=== PATIENT | female | born 1970 | race Caucasian/White ===

== ENCOUNTER 2025-03-01 09:37 | Outpatient (CLI) | payer BC, SELFPAY ==
--- OUTSIDE RECORDS SUMMARY | 2023-10-08 11:45 | XMS_ITS ---
Author Organization [facility] Address [address] [place] [address] Care Team Providers Care Translation Director Name Role Phone Selina Jolley Unavailable [phone] Zulema Garnicafer Unavailable [phone] REASON FOR VISIT Annual Social History Sex Assigned At : Social History Observation Description Sex Assigned At Female Encounters Encounter Location Date Provider Diagnosis [facility] [address] [place] [address] 10/08/2023 Adry Garnica Plan Of Treatment Next Appt Details Provider Name:Adry Garnica , 08/03/2025 08:15:00 AM, [address], [place], [address], Progress Notes * Monae PEREIRA CDOB:1970 (54 yo F)Acc No.[id number]:10/08/2023 Progress Note Patient: Benson marcocassandra Monae Knowles Provider: Triston Garnica MD :1970 A ge:52 Y S ex:Female Date:10/08/2023 Address:[address] [place], [place] [id number] Subjective: * Chief Complaints: * A nnual * Electronic signature of Maria Eugenia Garnica MD on 03/01/2025 at 09:40 AM EDT Sign off status: Pending Visit Status: R /S (Rescheduled) * Provider: Triston Garnica MD Date: 0 10/08/2023 Generated for Elmira morales/Kori/Kimberly on: 0 03/01/2025 09:40 AM EDT
--- OUTSIDE RECORDS SUMMARY | 2024-07-14 04:15 | XMS_ITS ---
Author Organization [facility] Address [address] [place] [address] Care Team Providers Care Urology Physician Assistant Name Role Phone Selina Jolley Unavailable [phone] Zulema Garnicafer Unavailable [phone] REASON FOR VISIT Annual Social History Sex Assigned At : Social History Observation Description Sex Assigned At Female Encounters Encounter Location Date Provider Diagnosis [facility] [address] [place] [address] 07/14/2024 Adry Garnica Plan Of Treatment Next Appt Details Provider Name:Adry Garnica , 08/03/2025 08:15:00 AM, [address], [place], [address], Progress Notes * Monae PEREIRA CDOB:1970 (54 yo F)Acc No.[id number]:07/14/2024 Progress Note Patient: Benson marcocassandra Monae Knowles Provider: Triston Garnica MD :1970 A ge:53 Y S ex:Female Date:07/14/2024 Address:[address] [place], [place] [phone] Subjective: * Chief Complaints: * A nnual * Electronic signature of Maria Eugenia Garnica MD on 03/01/2025 at 09:41 AM EDT Sign off status: Pending Visit Status: R /S (Rescheduled) * Provider: Triston Garnica MD Date: 1 Generated for Elmira morales/Kori/Kimberly on: 0 03/01/2025 09:41 AM EDT
--- OUTSIDE RECORDS SUMMARY | 2024-12-31 08:49 | XMS_ITS | Encounter Summary ---
Author Organization [facility] Address [address] [place] [address] Care Team Providers Care Fine Craft Artist Name Role Phone Julianna Freed PA-C Primary Care Provide r Reason for Referral * Diagnostic Imaging (Routine) - Closed Specialty Diagnoses / Procedures Referred By Contac t Referred To Contact Radiology Diagnoses RUQ pain Procedures US Gallbladder Brie Muñoz PA-C [address] [place] [address] Phone: tel: fax: [facility] [address] [place] [address] Phone: tel: Referral ID Status Reason Start Date Expiration Date Visits Re quested Visits Authorized [id number] Closed 12/10/2024 03/11/2026 1 1 Reason for Visit * Auth/Cert (Routine) Specialty Diagnoses / Procedures Referred By Contac t Referred To Contact Referral ID Status Reason Start Date Expiration Date Visits Re quested Visits Authorized [id number] 1 1 Encounter Details Date Type Department Care Team (Late st Contact Info) Description 12/31/2024 8:49 AM EDT - 12/31/2024 11:59 PM EDT Hospital Encounter [facility] [place] [address] [place] [phone] Brie Muñoz PA-C [address] [place] [address] RUQ pain Discharge Disposition: Home or Self Care Social History Tobacco Use Types Packs/Day Years Used Date Smoking Tobacco: Never Passive Smoke Exposure: Never Smokeless Tobacco: Never Alcohol Use Standard Drinks/Week Comments Yes 1 (1 standard drink = 0.6 oz pure alcohol) On average I have less than 1 drink/week PHQ-2 Answer Date Recorded Retired PHQ-9: Brief Depression Severity Measure Score 0 01/25/2023 PHQ-2 Answer Date Recorded Patient Health Questionnaire-2 Score 0 08/10/2024 Comments No Sex and Gender Information Value Date Recorded Sex Assigned at Female 12/10/2024 10:23 AM EDT Legal Sex Female 11:40 AM EDT Gender Identity Not on file Sexual Orientation Not on file Travel History Travel Start Travel End [place] 02/03/2025 02/07/2025 documented as of this encounter Medications at Time of Discharge desonide (DESOWEN) 0.05 % ointment Apply to the axilla BID x2 weeks, then take two week break 5 fexofenadine (JUSTO) 180 MG tabletIndications:S easonal allergies Take 1 tablet by mouth Daily. 90 tablet 3 Humira, 2 Pen, 40 MG/0.4ML Auto-injector Kit Inject 0.4 mL every week by subcutaneous route. 4 hydrOXYzine (ATARAX) 25 MG tabletIndications:A nxiety Take 1 tablet by mouth 3 (Three) Times a Day As Needed for Anxiety. 30 tablet 2 3 ketoconazole (NIZORAL) 2 % shampoo Apply topically to the appropriate area as directed 2 (Two) Times a Week. 120 mL 11 2 lidocaine (XYLOCAINE) 5 % ointment APPLY TOPICALLY TO BACK 2 TO 3 TIMES A DAY NEEDED FOR PAIN methocarbamol (ROBAXIN) 500 MG tabletIndications:P ain of left hip TAKE 2 TABLETS BY MOUTH AT NIGHT 180 tablet 5 nabumetone (RELAFEN) 750 MG tablet 1 tablet Daily. 9 ondansetron (Zofran) 4 MG tabletIndications:R UQ pain,Nausea Take 1 tablet by mouth Every 8 (Eight) Hours As Needed for Nausea or Vomiting. 30 tablet 1 5 Probiotic Product (PROBIOTIC-10 ULTIMATE PO) simethicone (MYLICON) 80 MG chewable tabletIndications:R UQ pain,Bloating Chew 1 tablet Every 6 (Six) Hours As Needed for Flatulence. 90 tablet 1 5 tretinoin (RETIN-A) 0.025 % cream APPLY A PEA SIZED AMOUNT TO THE AFFECTED AREA(S) BY TOPICAL ROUTE ONCE DAILY AT BEDTIME 5 amLODIPine (NORVASC) 5 MG tabletIndications:E ssential hypertension TAKE 1 TABLET BY MOUTH EVERY DAY 90 tablet 3 4 02/08/20 25 FLUoxetine (PROzac) 20 MG capsuleIndications: Anxiety Take 1 capsule by mouth Daily. 90 capsule 3 4 02/11/20 25 losartan (COZAAR) 50 MG tabletIndications:E ssential hypertension Take 1 tablet by mouth Daily. 90 tablet 3 4 02/08/20 25 montelukast (SINGULAIR) 10 MG tabletIndications:S easonal allergies TAKE 1 TABLET BY MOUTH AT BEDTIME 90 tablet 3 4 02/08/20 25 rosuvastatin (CRESTOR) 10 MG tabletIndications:M ixed hyperlipidemia TAKE 1 TABLET BY MOUTH EVERY DAY 90 tablet 3 4 02/08/20 25 Wegovy 2.4 MG/0.75ML solution auto-injectorIndica tions:Obesity (BMI 30.0-34.9) INJECT 2.4 MG UNDER THE SKIN ONCE EVERY 7 DAYS DIRECTED 9 mL 5 01/30/20 25 documented as of this encounter Plan of Treatment Upcoming Encounters Date Type Department Care Team (Late st Contact Info) Description 03/03/2025 8:00 AM EDT Treatment [facility] [address] [facility] [address] [place] [address] Sagar Soto, PT [address] [facility] [address] [place], [place] [id number] 03/10/2025 4:00 PM EDT Treatment [facility] [address] [facility] [address] [place] [address] Sagar Soto, PT [address] [facility] [address] [place], [place] [id number] 03/29/2025 3:00 PM EDT Office Visit [facility] [address] [place] [address] Julianna Freed PA-C [address] [place], [place] [id number] 03/31/2025 1:00 PM EDT Appointment [facility]UCLEAR [facility]ICINE [address] [place] [address] 04/05/2025 1:00 PM EDT Outside Facility Service [facility] [address] [facility] [address] [place] [address] Daljit Wilson MD [address] [facility] [address] [place] [address] documented as of this encounter Procedures Procedure Name Priority Date/Time Associated Diagnosis Comments US GALLBLADDER Routine 12/31/2024 9:16 AM EDT RUQ pain documented in this encounter Results * US Gallbladder (12/31/2024 9:16 AM EDT) Anatomical Region Laterality Modality Body, Abdomen Ultrasound 01/03/2025 10:2 4 PM EDT Impressions 01/03/2025 10:30 PM EDT Impression: 1.Hepatic steatosis. 2.The remaining study is normal. Electronically Signed: Thomas Stanley MD 01/03/2025 10:30 PM EDT Workstation ID: [id number] Narrative 01/03/2025 10:30 PM EDT US GALLBLADDER Date of Exam: 12/31/2024 8:50 AM EDT Indication: Worsening of right upper quadrant abdominal pain. Comparison: Limited abdominal ultrasound performed on 07/24/[address] of the abdomen performed on 07/28/2018. Technique: Grayscale and color Doppler ultrasound evaluation of the gallbladder was performed. Findings: The pancreatic head and body are normal. The pancreatic tail was obscured by bowel gas. There is increased hepatic echogenicity felt to represent hepatic steatosis. There are no focal hepatic masses. There is normal directional flow in the main portal vein and hepatic veins. The gallbladder is within range of normal. The common bile duct caliber is normal measuring 0.2 cm. The right kidney is unremarkable measuring 9.1 x 4.2 x 4.9 cm. Procedure Note Thomas Stanley MD - 01/03/2025 US GALLBLADDER Date of Exam: 12/31/2024 8:50 AM EDT Indication: Worsening of right upper quadrant abdominal pain. Comparison: Limited abdominal ultrasound performed on 07/24/[address] ofthe abdomen performed on 07/28/2018. Technique: Grayscale and color Doppler ultrasound evaluation of thegallbladder was performed. Findings: The pancreatic head and body are normal. The pancreatic tail was obscuredby bowel gas. There is increased hepatic echogenicity felt to representhepatic steatosis. There are no focal hepatic masses. There is normaldirectional flow in the main portal vein and hepatic veins. The gallbladder is within range of normal. Thecommon bile duct caliber is normal measuring 0.2 cm. The right kidney isunremarkable measuring 9.1 x 4.2 x 4.9 cm. IMPRESSION: Impression: 1.Hepatic steatosis. 2.The remaining study is normal. Electronically Signed: Thomas Stanley MD 01/03/2025 10:30 PM EDT Workstation ID: [id number] us Brie Muñoz PA-C IMMichelle US ORDERABLES Final Res ult documented in this encounter Visit Diagnoses Diagnosis RUQ pain Abdominal pain, right upper quadrant documented in this encounter Care Teams Fine Craft Artist Relationship Specialty Start Date End Date Julianna Freed PA-C [address] [place] [address] PCP - General Physician Manufacturing Tech 07/17/18 documented as of this encounter
--- OUTSIDE RECORDS SUMMARY | 2025-01-04 08:00 | XMS_ITS | Encounter Summary ---
Author Organization [facility] Address [address] [place] [address] Care Team Providers Care Mica Paster Name Role Phone Julianna Freed PA-C Primary Care Provide r Reason for Visit * Reason Comments Follow-up Treatment * Physical Therapy (Routine) - Authorized Specialty Diagnoses / Procedures Referred By Mukesh collins Referred To Contact Physical Therapy Diagnoses Cervical radiculopathy 2024 BENEFITS ANTHEM COINS:20% NO AUTH REQ 90VL/YR (COMBINED) REM DED:$1,500 REM OOP:$3,000 Cervical radiculopathy Procedures ORTHO TREATMENT Julianna Freed PA-C [address] [place] [address] Phone: tel: fax: [facility] [address] [place] [address] [address] [place] [address] Phone: tel: fax: Referral ID Status Reason Start Date Expiration Date V isits Requested Visits Authorized [id number] Authorized 07/24/2024 07/24/2025 90 90 Encounter Details Date Type Department Care Team (Late st Contact Info) Description 01/04/2025 8:00 AM EDT Treatment [facility] [address] [place] [address] [address] [place] [address] Sagar Soto, PT [address] [facility] [address] [place] [address] Pain, neck (Primary Dx); Radiculopathy, cervical Social History Tobacco Use Types Packs/Day Years [...] file Travel History Travel Start Travel End [place] 02/03/2025 02/07/2025 documented as of this encounter Progress Notes * Sagar Soto, PT - 01/04/2025 8:00 AM EDT Physical Therapy Daily Treatment Note [facility] [address] [facility], [address] [place] [address] Patient: Monae Pereira : 1970 Referring practitioner: Julianna Freed, * Date of Initial Visit: Type: THERAPY Noted: 11/29/2022 Today's Date: 01/04/2025 Patient seen for 61 sessions Certification Period 01/04/2025 thru 04/04/2025 Visit Diagnoses: ICD-10-CM ICD-9-CM 1. Pain, neck M54.2 723.1 2. Radiculopathy, cervical M54.12 723.4 Subjective Pt states that she is feeling some tightness on the right side of the neck today, but overall she still feels that she is improved and she denies any pain radiating into the right UE. Objective See Exercise, Manual, and Modality Logs for complete treatment. Assessment/Plan Hypertonicity noted in the right cervical paraspinals, LS, and scalenes. Pt responded well to manual intervention and she demonstrated an improvement in her pain free cervical AROM in all planes. Will cont to progress as indicated. Monae Pereira will continue to benefit from skilled physical therapy services to address deficits and continue to work towards reaching functional goals. Timed: Manual Therapy: 28 mins 50450; Therapeutic Exercise: 10 mins 99924; Neuromuscular Janessa: mins 74350; Therapeutic Activity: mins 08791; Gait Training: mins 68012; Ultrasound: mins 49606; Ionto mins 29791 Self Care mins 28154 Canalith Repos mins 95212 Electrical Stimulation: mins 62724 Un-Timed: Electrical Stimulation: mins 74717 ( [id number]); Dry Needling mins self-pay Traction mins 79515 Timed Treatment: 38 mins Total Treatment: 38 mins Sagar Soto PT, DPT, Cert. DN [place] License: [id number] documented in this encounter Plan of Treatment Upcoming Encounters Date Type Department Care Team (Late st Contact Info) Description 03/03/2025 8:00 AM EDT Treatment [facility] [address] [place] [address] [address] [place] [address] Sagar Soto, PT [address] [facility] [address] [place] [address] 03/10/2025 4:00 PM EDT Treatment [facility] [address] [place] [address] [address] [place] [address] Sagar Soto, PT [address] [facility] [address] [place] [address] 03/29/2025 3:00 PM EDT Office Visit [facility] [address] [place] [address] Julianna Freed PA-C [address] [place] [address] 03/31/2025 1:00 PM EDT Appointment [facility] [address] [place] [address] 04/05/2025 1:00 PM EDT Outside Facility Service [facility] [address] [address] Daljit Wilson MD [address] [address] documented as of this encounter Visit Diagnoses Diagnosis Pain, neck- Primary Radiculopathy, cervical Brachial neuritis or radiculitis nos documented in this encounter Care Teams Mica Paster Relationship Specialty Start Date End Date Julianna Freed PA-C [address] [place] [address] PCP - General Physician Health Occupations Teacher 07/17/18 documented as of this encounter
--- OUTSIDE RECORDS SUMMARY | 2025-01-12 16:00 | XMS_ITS | Encounter Summary ---
Author Organization [facility] Address [address] [place] [address] Care Team Providers Care Television Picture Tube Rebuilder Name Role Phone Julianna Freed PA-C Primary Care Provide r Reason for Visit * Reason Comments Treatment * Physical Therapy (Routine) - Authorized Specialty Diagnoses / Procedures Referred By Mukesh collins Referred To Contact Physical Therapy Diagnoses Cervical radiculopathy 2024 BENEFITS ANTHEM COINS:20% NO AUTH REQ 90VL/YR (COMBINED) REM DED:$1,500 REM OOP:$3,000 Cervical radiculopathy Procedures ORTHO TREATMENT Julianna Freed PA-C [address] [place] [address] Phone: tel: fax: [facility] [address] [place] [address] [address] [place] [address] Phone: tel: fax: Referral ID Status Reason Start Date Expiration Date V isits Requested Visits Authorized [id number] Authorized 07/24/2024 07/24/2025 90 90 Encounter Details Date Type Department Care Team (Late st Contact Info) Description 01/12/2025 4:00 PM EDT Treatment [facility] [address] [place] [address] [address] [place] [address] Sagar Soto, PT [address] [facility] [address] [place] [address] Pain, neck (Primary Dx); Radiculopathy, cervical Social [...] file Travel History Travel Start Travel End [place] 02/03/2025 02/07/2025 documented as of this encounter Progress Notes * Sagar Soto, PT - 01/12/2025 4:00 PM EDT Physical Therapy Daily Treatment Note [facility] [address], [address] [place] [address] Patient: Monae Pereira : 1970 Referring practitioner: Julianna Freed, * Date of Initial Visit: Type: THERAPY Noted: 11/29/2022 Today's Date: 01/12/2025 Patient seen for 62 sessions Certification Period 01/12/2025 thru 04/13/2025 Visit Diagnoses: ICD-10-CM ICD-9-CM 1. Pain, neck M54.2 723.1 2. Radiculopathy, cervical M54.12 723.4 Subjective Patient states that she feels like she has had some increase in tension in the right side of the neck recently but overall she still continues to feel much better with therapy. Patient denies having any radicular symptoms into the right upper extremity. Objective See Exercise, Manual, and Modality Logs for complete treatment. Assessment/Plan Decreased hypertonicity noted with manual therapy today and patient was able to perform light exercise without any exacerbation of symptoms. Continue to progress as indicated. Adrielle C Camuel will continue to benefit from skilled physical therapy services to address deficits and continue to work towards reaching functional goals. Timed: Manual Therapy: 28 mins 94800; Therapeutic Exercise: mins 90464; Neuromuscular Janessa: mins 43520; Therapeutic Activity: mins 75598; Gait Training: mins 91983; Ultrasound: mins 64789; Ionto mins 58361 Self Care mins 24817 Canalith Repos mins 11731 Electrical Stimulation: mins 23373 Un-Timed: Electrical Stimulation: mins 73101 (MC [id number]); Dry Needling mins self-pay Traction mins 45191 Timed Treatment: 28 mins Total Treatment: 28 mins Sagar Soto PT, DPT, Cert. DN [place] License: [id number] documented in this encounter Plan of Treatment Upcoming Encounters Date Type Department Care Team (Late st Contact Info) Description 03/03/2025 8:00 AM EDT Treatment [facility] [address] [place] [address] [address] [place] [address] Sagar Soto, PT [address] [facility] [address] [place] [address] 03/10/2025 4:00 PM EDT Treatment [facility] [address] [place] [address] [address] [place] [address] Sagar Soto, PT [address] [facility] [address] [place] [address] 03/29/2025 3:00 PM EDT Office Visit [facility] [address] [place] [address] Julianna Freed PA-C [address] [place] [address] 03/31/2025 1:00 PM EDT Appointment [facility] [address] [place] [address] 04/05/2025 1:00 PM EDT Outside Facility Service [facility] [address] [facility] [address] Daljit Wilson MD [address] [place] [id number] documented as of this encounter Visit Diagnoses Diagnosis Pain, neck- Primary Radiculopathy, cervical Brachial neuritis or radiculitis nos documented in this encounter Care Teams Television Picture Tube Rebuilder Relationship Specialty Start Date End Date Julianna rFeed PA-C [address] [facility] [place] [place] [address] PCP - General Physician Drop Wirer 07/17/18 documented as of this encounter
--- OUTSIDE RECORDS SUMMARY | 2025-01-19 16:00 | XMS_ITS | Encounter Summary ---
[facility] Address [address] [place] [address] Care Team Providers Care Tack Coverer Name Role Phone Julianna Freed PA-C Primary Care Provide r Reason for Visit * Reason Comments Treatment * Physical Therapy (Routine) - Authorized Specialty Diagnoses / Procedures Referred By Mukesh collins Referred To Contact Physical Therapy Diagnoses Cervical radiculopathy 2024 BENEFITS ANTHEM COINS:20% NO AUTH REQ 90VL/YR (COMBINED) REM DED:$1,500 REM OOP:$3,000 Cervical radiculopathy Procedures ORTHO TREATMENT Julianna Freed PA-C [address] [place] [address] Phone: tel: fax: [facility] [address] [place] [address] [address] [place] [address] Phone: tel: fax: Referral ID Status Reason Start Date Expiration Date V isits Requested Visits Authorized [id number] Authorized 07/24/2024 07/24/2025 90 90 Encounter Details Date Type Department Care Team (Late st Contact Info) Description 01/19/2025 4:00 PM EDT Treatment [facility] [address] [place] [address] [address] [place] [phone] Sagar Soto, PT [address] [facility] [address] [place] [address] Pain, neck (Primary Dx); Radiculopathy, cervical Social [...] file Travel History Travel Start Travel End [place] 02/03/2025 02/07/2025 documented as of this encounter Progress Notes * Sagar Soto, PT - 01/19/2025 4:00 PM EDT Physical Therapy Daily Treatment Note Lance PT [address] [place], [address] [place] [address] Patient: Monae Pereira : 1970 Referring practitioner: Julianna Freed, * Date of Initial Visit: Type: THERAPY Noted: 11/29/2022 Today's Date: 01/19/2025 Patient seen for 63 sessions Certification Period 01/19/2025 thru 04/19/2025 Visit Diagnoses: ICD-10-CM ICD-9-CM 1. Pain, neck M54.2 723.1 2. Radiculopathy, cervical M54.12 723.4 Subjective Patient states that she is feeling more stiffness and discomfort in the neck and towards the right shoulder blade today. She is unsure what may have caused patient's symptoms but feels that she stillis significantly improved overall Objective See Exercise, Manual, and Modality Logs for complete treatment. Assessment/Plan Patient responded well to manual intervention in the clinic today and she demonstrated decrease in hypertonicity and the right cervical and thoracic paraspinal muscles. Patient demonstrated improvement in her cervical active range of motion post manual therapy as well. Will continue to progress as i ndicated. Monae Pereira will continue to benefit from skilled physical therapy services to address deficits and continue to work towards reaching functional goals. Timed: Manual Therapy: 32 mins 96472; Therapeutic Exercise: mins 99305; Neuromuscular Janessa: mins 23335; Therapeutic Activity: mins 57384; Gait Training: mins 65056; Ultrasound: mins 14844; Ionto mins 15927 Self Care mins 92552 Canalith Repos mins 46628 Electrical Stimulation: mins 09790 Un-Timed: Electrical Stimulation: mins 42093 ( [id number]); Dry Needling mins self-pay Traction mins 67466 Timed Treatment: 32 mins Total Treatment: 32 mins Sagar Soto PT, DPT, Cert. DN [place] License: [id number] documented in this encounter Plan of Treatment Upcoming Encounters Date Type Department Care Team (Late st Contact Info) Description 03/03/2025 8:00 AM EDT Treatment [facility] [address] [place] [address] [address] [place] [address] Sagar Soto, PT [address] [facility] [address] [place] [address] 03/10/2025 4:00 PM EDT Treatment [facility] [address] [place] [address] [address] [place] [address] Sagar Soto, PT [address] [facility] [address] [place] [address] 03/29/2025 3:00 PM EDT Office Visit [facility] [address] [place] [phone] Julianna Freed PA-C [address] [place] [address] 03/31/2025 1:00 PM EDT Appointment [facility] [address] [place] [address] 04/05/2025 1:00 PM EDT Outside Facility Service [facility] [address] [phone] Daljit Wilson MD [address] [address] documented as of this encounter Visit Diagnoses Diagnosis Pain, neck- Primary Radiculopathy, cervical Brachial neuritis or radiculitis nos documented in this encounter Care Teams Tack Coverer Relationship Specialty Start Date End Date Julianna Freed PA-C [address] [place] [address] PCP - General Physician Inspector Government Property 07/17/18 documented as of this encounter
--- OUTSIDE RECORDS SUMMARY | 2025-01-26 08:00 | XMS_ITS | Encounter Summary ---
[facility] Address [address] [place] [address] Care Team Providers Care Family Resource Management Professor Name Role Phone Julianna Freed PA-C Primary Care Provide r Reason for Visit * Reason Comments Treatment * Physical Therapy (Routine) - Authorized Specialty Diagnoses / Procedures Referred By Mukesh collins Referred To Contact Physical Therapy Diagnoses Cervical radiculopathy 2024 BENEFITS ANTHEM COINS:20% NO AUTH REQ 90VL/YR (COMBINED) REM DED:$1,500 REM OOP:$3,000 Cervical radiculopathy Procedures ORTHO TREATMENT Julianna Freed PA-C [address] [place] [address] Phone: tel: fax: [facility] [address] [place] [address] [address] [place] [address] Phone: tel: fax: Referral ID Status Reason Start Date Expiration Date V isits Requested Visits Authorized [id number] Authorized 07/24/2024 07/24/2025 90 90 Encounter Details Date Type Department Care Team (Late st Contact Info) Description 01/26/2025 8:00 AM EDT Treatment [facility] [address] [place] [address] [address] [place] [phone] Sagra Soto, PT [address] [facility] [address] [place] [address] Pain, neck (Primary Dx); Radiculopathy, cervical Social [...] file Travel History Travel Start Travel End [place] 02/03/2025 02/07/2025 documented as of this encounter Progress Notes * Sagar Soto, PT - 01/26/2025 8:00 AM EDT Physical Therapy Daily Treatment Note Lance PT [address], [address] [place] [address] Patient: Monae Pereira : 1970 Referring practitioner: Julianna Freed, * Date of Initial Visit: Type: THERAPY Noted: 11/29/2022 Today's Date: 01/26/2025 Patient seen for 64 sessions Certification Period 01/26/2025 thru 04/27/2025 Visit Diagnoses: ICD-10-CM ICD-9-CM 1. Pain, neck M54.2 723.1 2. Radiculopathy, cervical M54.12 723.4 Subjective Patient states that she has had some increase and soreness on the right side of the neck and she has noticed mild symptoms at the top of the right shoulder recently. She feels like she may be due fora another cervical rhizotomy. Objective See Exercise, Manual, and Modality Logs for complete treatment. Assessment/Plan Patient continues to respond very well to manual intervention and she had decreased tone and improved overall cervical mobility post manual therapy. Will continue to progress as indicated. Adrielle C Camuel will continue to benefit from skilled physical therapy services to address deficits and continue to work towards reaching functional goals. Timed: Manual Therapy: 38 mins 37795; Therapeutic Exercise: mins 80363; Neuromuscular Janessa: mins 21949; Therapeutic Activity: mins 48437; Gait Training: mins 77540; Ultrasound: mins 97612; Ionto mins 59669 Self Care mins 30882 Canalith Repos mins 79845 Electrical Stimulation: mins 25722 Un-Timed: Electrical Stimulation: mins 54400 (MC [id number]); Dry Needling mins self-pay Traction mins 68798 Timed Treatment: 38 mins Total Treatment: 38 mins Sagar Soto PT, DPT, Cert. DN [place] License: [id number] documented in this encounter Plan of Treatment Upcoming Encounters Date Type Department Care Team (Late st Contact Info) Description 03/03/2025 8:00 AM EDT Treatment [facility] [address] [place] [address] [address] [place] [address] Sagar Soto, PT [address] [facility] [address] [place] [address] 03/10/2025 4:00 PM EDT Treatment [facility] [address] [place] [address] [address] [place] [address] Sagar Soto, PT [address] [facility] [address] [place] [address] 03/29/2025 3:00 PM EDT Office Visit [facility] [address] [place] [phone] Julianna Freed PA-C [address] [place] [address] 03/31/2025 1:00 PM EDT Appointment [facility] [address] [place] [address] 04/05/2025 1:00 PM EDT Outside Facility Service [facility] [address] [facility] [phone] Daljit Wilson MD [address] [place] [id number] documented as of this encounter Visit Diagnoses Diagnosis Pain, neck- Primary Radiculopathy, cervical Brachial neuritis or radiculitis nos documented in this encounter Care Teams Family Resource Management Professor Relationship Specialty Start Date End Date Julianna Freed PA-C [address] [facility] [place] [address] PCP - General Physician Casing Puller 07/17/18 documented as of this encounter
--- OUTSIDE RECORDS SUMMARY | 2025-01-28 08:20 | XMS_ITS | Encounter Summary ---
Author Organization [facility] Address [address] [place] [address] Care Team Providers Care Sales Training Coordinator Name Role Phone Julianna Freed Primary Care Provider Reason for Referral * Other Medical (Routine) - Closed Specialty Diagnoses / Procedures Referred By Contac t Referred To Contact Pain Medicine Diagnoses Spondylosis of cervical 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 radiculopathy Procedures RFA - Cervical / Thoracic RFA - Cervical / Thoracic Ermias Taylor MD [address] [address] Phone: tel: fax: [facility] Interventional Pain Medicine [address] [place] [address] Phone: tel: fax: Referral ID Status Reason Start Date Expiration Date Visits Re quested Visits Authorized [id number] Closed 01/28/2025 07/30/2026 1 1 Reason for Visit * Reason Comments Follow-up Discuss RF Encounter Details Date Type Department Care Team (Late Contact Info) Description 01/28/2025 8:20 AM EDT Office Visit [facility] Interventional Pain Medicine [address] [place] [address] Ermias Taylor MD [facility] [address] [address] Spondylosis of cervical 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 radiculopathy (Primary Dx) Social History Tobacco Use Types Packs/Day Years Used Date Smoking Tobacco: Never Smokeless Tobacco: Never Alcohol Use Standard Drinks/Week Comments Yes 0 (1 standard drink = 0.6 oz pur e alcohol) social PHQ-2 Answer Date Recorded Patient Health Questionnaire-2 Score 0 12/17/2024 PHQ-9 Answer Date Recorded Patient Health Questionnaire-9 Score 0 09/29/2024 PHQ-2A Answer Date Recorded Depression Risk 0 06/29/2023 Comments No Sex and Gender Information Value Date Recorded Sex Assigned at Female 05/21/2021 5:57 PM EST Legal Sex Female 7:57 PM EDT Gender Identity Female 05/21/2021 5:57 PM EST Sexual Orientation Not on file documented as of this encounter Last Filed Vital Signs Vital Sign Reading Time Taken Comments Blood Pressure 126/84 01/28/2025 8:30 AM EDT Pulse 96 01/28/2025 8:30 AM EDT Temperature 36.2 C (97.1 F) 01/28/2025 8:30 AM EDT Respiratory Rate 16 01/28/2025 8:30 AM EDT Oxygen Saturation - - Inhaled Oxygen Concentration - - Weight 80.3 kg (177 lb) 01/28/2025 8:30 AM EDT Height 152.4 cm (5') 01/28/2025 8:30 AM EDT Body Mass Index 34.57 01/28/2025 8:30 AM EDT documented in this encounter Miscellaneous Notes * Progress Notes - Denzel Bravo, - 01/28/2025 8:20 AM EDT Images from the original note were not included. Interventional Pain Medicine Record review: PMR, internal medicine Interval Tx: s/p 06/22/24 Bilateral C4, C5, and C6 Cervical medial branch radiofrequency ablation with 80% reliefx7 months. Pain has returned. Would like to repeat RFA. History of Present Illness: Monae Pereira is a 54 y.o. female with chronic neck pain Patient reports that she has had neck pain for several years and required a C5-C6 fusion (07/2011) in the past. LUE pain was primary complaint before C5-6 which improved since fusion. Today, patient C/o left buttock pain extending to the left posterior thigh, and stopping at calf, started 6 months ago, non interventional helping, had massage and acupuncture yesterday, pain 07/24, no saddle anesthesia, no bowel or bladder dysfunction.. no new muscle weakness, does not want any interventional tx at this time GPS: 7.5 Current Medication: Relafen Methocarbamol Humira Past pain medications Flexeril Gabapentin- lethargy Tizandine Previous Non-Interventional Treatments: acupuncture heat ice medication trials modified activities physical therapy > 6 weeks rest Currently enrolled in PT weekly acupuncture OMT HEP Previous Interventions/Consults: Bilateral C4, C5, and C6 Cervical medial branch radiofrequency ablation 06/22/24 Bilateral C4, C5, and C6 Cervical medial branch radiofrequency ablation 10/01/23 MITRA C7/T1: 04/02/23 MITRA C7/T1: 12/21/22 MITRA C7/T1: 09/04/22 MITRA C7/T1: /06/21/22 previous cervical fusion at the level of C5-C6 in [address] Bell - for LLE pain Other Medical History reports that she has never smoked. She has never used smokeless tobacco. Diabetes: Denies A1C: N/A Anticoagulation: Denies Review of Systems: CONSTITUTIONAL: denies fevers, chills HEENT: denies swallowing difficulties, sore throat CARDIOVASCULAR: denies chest pain, palpitations with anxiety, denies syncope RESPIRATORY: denies shortness of breath, cough, wheezing GI: denies change in bowel habits : denies change in bladder function SKIN: denies rash, skin changes MSK: Per HPI NEURO: Per HPI PSYCH: mild anxiety and stress managed due to current events Physical Constitutional Oriented to person, place, and time. Appears well-developed and well-nourished Head Normocephalic and atraumatic. Neck Neck trachea midline Cardiovascular No peripheral edema Pulmonary/Chest Effort normal, no shortness of breath noted Neurological Alert and oriented to person, place, and time Skin Skin is warm and no visible rash on exposed skin Psychiatric Normal mood and affect, behavior and judgment Upper Extremity Region Exam Left (+/-) Right (+/-) Comments Cervical Musculature Tender w/ palpation + + Cervical Facet Pain w/ extension + + Upper Extremity Spurling's - - Upper Extremity Bakody - - Sensation Left Right Comments Neck Normal Normal C5: Shoulder Normal Normal C6: Thumb, radial aspect of hand/forearm (Radial Nerve) Normal Normal C7: Long finger (Median Nerve) Normal Normal C8: Little finger, ulnar aspect of hand/forearm (Ulnar n.) Normal Normal T1; Medial forearm/arm Normal Normal Motor Strength Left Right Comments C5: Shoulder abduction (Deltoid) 11/16 11/16 C5: Elbow flexion (Biceps, Brachialis) 11/16 11/16 C6: Wrist extension (ECRB, ECRL) 11/16 11/16 C7: Elbow extension (Triceps) 11/16 11/16 C8: Finger flexion (Hospice Superintendent strength) 11/16 11/16 T1: Finger abduction 11/16 11/16 Imaging: C-spine XR 08/2022 no acute findings No updated relevant imaging to review Assessment & Plan: Monae Pereira is a 54 y.o. female #Axial Neck Pain, chronic stable #Cervical Spondylosis #Facetogenic pain -s/p Bilateral C4, C5, and C6 Cervical medial branch radiofrequency ablation with 80% improvement with pain x7 months. She reports reemergence of her symptoms over the last 2-3 weeks and would like to pursue repeat RFA. Follow up 8 weeks after procedure. -Some new face pain symptoms, repeat RFA and see if it improved, if not might need C2/3,3 MBB #Cervical Radicular Syndrome -chronic stable -s/p MITRA as needed #myofascial pain -chronic stable -continue with PT and OMT #piriformis pain-left -chronic stable -continue with PT, acupuncture, massage, and OMT -if pain worsens, consider left piriformis injection, if no benefit, recommending L-spine MRI Cosigned by Ermias Taylor MD at 01/28/2025 2:37 PM EDT Associated attestation - Ermias Taylor MD - 01/28/2025 2:37 PM EDT I saw and evaluated the patient with the resident/fellow. I discussed the case with the resident/fellow and agree with the findings and plan as documented. documented in this encounter Plan of Treatment Upcoming Encounters Date Type Department Care Team (Late st Contact Info) Description 03/05/2025 2:45 PM EDT Office Visit [facility] [address] [facility] [place] [address] Janeen Vanegas [address] [facility] Jhoana Snell [facility] [address] [place] [address] 03/11/2025 1:00 PM EDT Procedure Visit [facility] [address] [facility] [place] [phone] Gladys Mccarthy DO [address] [place] [address] 03/12/2025 8:30 AM EDT Office Visit [facility] [address] [address] Janene Vanegas [address] [facility] Alis [facility] [address] [place] [address] 03/12/2025 10:30 AM EDT Office Visit [facility] [address] [address] Lucrecia Morales [address] [facility] Alis [address] R[address] [place] [address] 03/31/2025 10:00 AM EDT Office Visit [facility] [address] [place] [address] 04/02/2025 9:20 AM EDT Office Visit [facility] Interventional Pain Medicine [address] [place] [address] Ermias Taylor MD [address] [facility] Shawn [address] [place] [address] 04/08/2025 3:40 PM EDT Procedure Visit [facility] [address] [place] [address] Gladys Mccarthy, DO [address] [place] [address] 04/13/2025 3:50 PM EDT Office Visit [facility] [address] [place] [address] Carlton Gaines, DO [address] [place] [address] 05/06/2025 3:40 PM EDT Procedure Visit [facility] [address] [place] [address] Gladys Mccarthy, DO [address] [place] [address] 06/03/2025 3:40 PM EST Procedure Visit [facility] [address] [place] [address] Gladys Mccarthy, DO [address] [place] [address] 09/07/2025 7:30 AM EST [facility] [address] [place] [address] documented as of this encounter Results * AL DSTR NROLYTC AGNT PARVERTEB FCT SNGL CRVCL/THORA, AL DSTR NROLYTC AGNT PARVERTEB FCT ADDL CRVCL/THORA, AL DSTR NROLYTC AGNT PARVERTEB FCT ADDL CRVCL/THORA (02/22/2025 9:00 AM EDT) Narrative Ermias Taylor MD - 02/22/2025 9:00 AM EDT Ermias Taylor MD 02/22/2025 1:01 PM RFA - Cervical / Thoracic Performed by: Denzel Bravo DO Authorized by: Ermias Taylor MD [place] Protocol: Time out was called immediately prior to procedure to meet all ambulatory requirements per organizational policy: Yes Patient identity confirmed: Arm band, , name and procedure consent Consent obtained?: Yes Procedure consent matches procedure scheduled: Yes Procedure side and site confirmed: Yes Imaging studies available (when applicable): Yes Procedure: Moderate conscious sedation used?: yes Guidance used (if applicable): fluoro Location: RFA location: Cervical/thoracic paravertebral facet Number of levels: 2 Laterality: Bilateral us Ermias Taylor MD IN CLINIC/BEDSIDE ORDERABLES Final Result documented in this encounter Visit Diagnoses Diagnosis Spondylosis of cervical 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 radiculopathy- Primary Spondylosis of cervical 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 radiculopathy documented in this encounter Additional Health Concerns Assessment Noted Time PHQ-9 Depression Total Score: 0 09/30/19 25 3:29 PM EDT A fall risk assessment has been complete d for the patient 12/17/2024 3:28 PM EDT A Body Mass Index follow-up plan has been documented for the patient 01/28/2025 2:37 PM EDT documented as of this encounter Care Teams Sales Training Coordinator Relationship Specialty Start Date End Date Julianna Freed PA [address] [place] [phone] PCP - General 11/25/20 documented as of this encounter
--- OUTSIDE RECORDS SUMMARY | 2025-01-29 11:00 | XMS_ITS | Encounter Summary ---
Author Organization [facility] Address [address] [place] [address] Care Team Providers Care Voltmeter Operator Name Role Phone Julianna Freed PA-C Primary Care Provide r Reason for Referral * Consultation (Routine) - Pending Review Specialty Diagnoses / Procedures Referred By Mukesh collins Referred To Contact Gastroenterology Diagnoses RUQ pain Abdominal pain, RLQ Epigastric pain Diarrhea, unspecified type Procedures DE OFFICE/OUTPATIENT NEW MODERATE MDM 45 MINUTES Julianna Freed PA-C [address] [place] [address] Phone: tel: fax: [facility] [address] [facility] [address] [place] [address] Phone: tel: fax: Referral ID Status Reason Start Date Expiration Date Visits Requested Visits Authorized [id number] Pending Review Specialty Services Required 01/29/2025 04/30/2026 1 1 * MRI/CAT/PET Scan (Routine) - Closed Specialty Diagnoses / Procedures Referred By Mukesh t Referred To Contact Radiology Diagnoses RUQ pain Abdominal pain, RLQ Diarrhea, unspecified type Procedures CT Abdomen Pelvis With Contrast Julianna Freed PA-C [address] [place] [address] Phone: tel: fax: [facility] [address] [place] [address] Phone: tel: Referral ID Status Reason Start Date Expiration Date Visits Re quested Visits Authorized [id number] Closed 01/29/2025 04/30/2026 1 1 Reason for Visit * Reason Comments Abdominal Pain Encounter Details Date Type Department Care Team (Late st Contact Info) Description 01/29/2025 11:00 AM EDT Office Visit [facility] [address] [place] [address] Julianna Freed PA-C [address] [place] [address] RUQ pain (Primary Dx); Abdominal pain, RLQ; Epigastric pain; Diarrhea, unspecified type Social History Tobacco Use Types Packs/Day Years Used Date Smoking Tobacco: Never Passive Smoke Exposure: Never Smokeless Tobacco: Never Tobacco Cessation:Counseling Given: Not Answered Alcohol Use Standard Drinks/Week Comments Yes 1 [...] file Travel History Travel Start Travel End [place] 02/03/2025 02/07/2025 documented as of this encounter Last Filed Vital Signs Vital Sign Reading Time Taken Comments Blood Pressure 124/78 01/29/2025 10:59 AM EDT Pulse 85 01/29/2025 10:59 AM EDT Temperature - - Respiratory Rate - - Oxygen Saturation 95% 01/29/2025 10:59 AM EDT Inhaled Oxygen Concentration - - Weight 83.5 kg (184 lb) 01/29/2025 10:59 AM EDT Height 152.4 cm (5') 01/29/2025 10:59 AM EDT Body Mass Index 35.94 01/29/2025 10:59 AM EDT documented in this encounter Progress Notes * Julianna Freed PA-C - 01/29/2025 11:00 AM EDT Chief Complaint Patient presents with Abdominal Pain Monae Pereira is a 54 y.o. female who presents for Abdominal Pain. Patient reports ongoing right upper quadrant pain for the last several months. Pain is worse with bending over and after eating.She is avoiding eating at times for fear of pain. Pain is burning and stabbing. Had normal ultrasound gallbladder. History of similar symptoms in [address] abdo/pelvis, US gallbladder and HIDA scan. History of EGD without any concerning findings. Seen by GI in 2019 and started on Align. Still taking Align. Recently on GLP-1. She discontinued this about a month ago and has not had any improvement. Reports stool is soft with mucous. No fever, chills, vomiting. No pain waking her at night. Past Medical History: Diagnosis Date Anemia Cervical disc disorder June 2011 Had cervical disc replacement and fusion Aug 08, 2011 Chronic pain disorder 2001 Was diagnosed with psoriatic arthritis in 2003 or 2004. 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 Hypertension Injury of neck 06/24/2011 Ruptred disc in my neck Joint pain 1980s Lumbar spine pain Lumbosacral disc disease October 2021 Medication monitoring encounter Neck pain June 2011 Obesity Psoriasis Psoriatic arthritis Psoriatic arthritis Right foot pain Shingles September 2011 Month is approximate Shoulder pain Spinal stenosis 2011 Year is approximate Urinary tract infection Past Surgical History: Procedure Laterality Date CERVICAL DISC ARTHROPLASTY 08/08/2011 Dr Joshua Capps CERVICAL FUSION 08/08/2011 Dr Joshua Capps COLONOSCOPY January 2023 DILATION AND CURETTAGE, DIAGNOSTIC / THERAPEUTIC EYE SURGERY 1998 [facility] FOOT SURGERY Right 06/14/2016 great toe ORTHOPEDIC SURGERY June 14, 2016 Bunionectomy and fusion, great toe, right foot REDUCTION MAMMAPLASTY Bilateral 2007 [facility] SPINAL FUSION August 08, 2011 Cervical disc replacement and fusion SPINE SURGERY Cervical disc replacement ans fusion STEROID INJECTION Family History Problem Relation Age of Onset Hypertension Mother Osteoarthritis Mother Osteoarthritis Sister Cancer Maternal Grandmother Hypertension Maternal Grandmother Osteoarthritis Maternal Grandmother Cancer Maternal Grandfather Hypertension Maternal Grandfather Mental illness Father Bipolar disorder and dementia Social History Socioeconomic History Marital status: Tobacco Use Smoking status: Never Passive exposure: Never Smokeless tobacco: Never Vaping Use Vaping status: Never Used Substance and Sexual Activity Alcohol use: Yes Alcohol/week: 1.0 standard drink of alcohol Types: 1 Cans of beer per week Comment: On average I have less than 1 drink/week Drug use: No Sexual activity: Yes Partners: Male control/protection: Other, Post-menopausal, Surgical Comment: had a vasectomy/ I had an ablation in 2019 No Known Allergies ROS Review of Systems Constitutional: Negative for chills and fever. Gastrointestinal: Positive for abdominal distention, abdominal pain, diarrhea, nausea and indigestion. Negative for blood in stool, constipation, rectal pain and vomiting. Vitals: 01/29/25 1059 BP: 124/78 BP Location: Right arm Patient Position: Sitting Cuff Size: Adult Pulse: 85 SpO2: 95% Weight: 83.5 kg (184 lb) Height: 152.4 cm (60 ) Body mass index is 35.94 kg/m??. Current Outpatient Medications on File Prior to Visit Medication Sig Dispense Refill amLODIPine (NORVASC) 5 MG tablet TAKE 1 TABLET BY MOUTH EVERY DAY 90 tablet 3 desonide (DESOWEN) 0.05 % ointment Apply to the axilla BID x2 weeks, then take two week break fexofenadine (JUSTO) 180 MG tablet Take 1 tablet by mouth Daily. 90 tablet 0 FLUoxetine (PROzac) 20 MG capsule Take 1 capsule by mouth Daily. 90 capsule 3 Humira, 2 Pen, 40 MG/0.4ML Auto-injector Kit Inject 0.4 mL every week by subcutaneous route. hydrOXYzine (ATARAX) 25 MG tablet Take 1 tablet by mouth 3 (Three) Times a Day As Needed for Anxiety. 30 tablet 2 ketoconazole (NIZORAL) 2 % shampoo Apply topically to the appropriate area as directed 2 (Two) Times a Week. 120 mL 11 lidocaine (XYLOCAINE) 5 % ointment APPLY TOPICALLY TO BACK 2 TO 3 TIMES A DAY NEEDED FOR PAIN losartan (COZAAR) 50 MG tablet Take 1 tablet by mouth Daily. 90 tablet 3 methocarbamol (ROBAXIN) 500 MG tablet TAKE 2 TABLETS BY MOUTH AT NIGHT 180 tablet 0 montelukast (SINGULAIR) 10 MG tablet TAKE 1 TABLET BY MOUTH AT BEDTIME 90 tablet 3 nabumetone (RELAFEN) 750 MG tablet 1 tablet Daily. ondansetron (Zofran) 4 MG tablet Take 1 tablet by mouth Every 8 (Eight) Hours As Needed for Nausea or Vomiting. 30 tablet 1 Probiotic Product (PROBIOTIC-10 ULTIMATE PO) rosuvastatin (CRESTOR) 10 MG tablet TAKE 1 TABLET BY MOUTH EVERY DAY 90 tablet 3 simethicone (MYLICON) 80 MG chewable tablet Chew 1 tablet Every 6 (Six) Hours As Needed for Flatulence. 90 tablet 1 tretinoin (RETIN-A) 0.025 % cream APPLY A PEA SIZED AMOUNT TO THE AFFECTED AREA(S) BY TOPICAL ROUTEONCE DAILY AT BEDTIME [DISCONTINUED] Wegovy 2.4 MG/0.75ML solution auto-injector INJECT 2.4 MG UNDER THE SKIN ONCE EVERY 7 DAYS DIRECTED (Patient not taking: Reported on 01/29/2025) 9 mL 0 No current facility-administered medications on file prior to visit. Results for orders placed or performed in visit on 12/10/24 Comprehensive Metabolic Panel Collection Time: 12/10/24 12:12 PM Specimen: Blood Result Value Ref Range Glucose 82 65 - 99 mg/dL BUN 9.0 6.0 - 20.0 mg/dL Creatinine 0.87 0.57 - 1.00 mg/dL Sodium 137 136 - 145 mmol/L Potassium 4.5 3.5 - 5.2 mmol/L Chloride 102 98 - 107 mmol/L CO2 25.0 22.0 - 29.0 mmol/L Calcium 10.0 8.6 - 10.5 mg/dL Total Protein 7.5 6.0 - 8.5 g/dL Albumin 4.3 3.5 - 5.2 g/dL ALT (SGPT) 43 (H) 1 - 33 U/L AST (SGOT) 46 (H) 1 - 32 U/L Alkaline Phosphatase 53 39 - 117 U/L Total Bilirubin 0.3 0.0 - 1.2 mg/dL Globulin 3.2 gm/dL A/G Ratio 1.3 g/dL BUN/Creatinine Ratio 10.3 7.0 - 25.0 Anion Gap 10.0 5.0 - 15.0 mmol/L eGFR 79.8 >60.0 mL/min/1.73 Amylase Collection Time: 12/10/24 12:12 PM Specimen: Blood Result Value Ref Range Amylase 120 (H) 28 - 100 U/L Lipase Collection Time: 12/10/24 12:12 PM Specimen: Blood Result Value Ref Range Lipase 41 13 - 60 U/L CBC Auto Differential Collection Time: 12/10/24 12:12 PM Specimen: Blood Result Value Ref Range WBC 5.79 3.40 - 10.80 10*3/mm3 RBC 4.41 3.77 - 5.28 10*6/mm3 Hemoglobin 13.1 12.0 - 15.9 g/dL Hematocrit 41.2 34.0 - 46.6 % MCV 93.4 79.0 - 97.0 fL MCH 29.7 26.6 - 33.0 pg MCHC 31.8 31.5 - 35.7 g/dL RDW 13.1 12.3 - 15.4 % RDW-SD 44.9 37.0 - 54.0 fl MPV 10.3 6.0 - 12.0 fL Platelets 325 140 - 450 10*3/mm3 Neutrophil % 53.0 42.7 - 76.0 % Lymphocyte % 33.2 19.6 - 45.3 % Monocyte % 9.7 5.0 - 12.0 % Eosinophil % 2.9 0.3 - 6.2 % Basophil % 0.9 0.0 - 1.5 % Immature Grans % 0.3 0.0 - 0.5 % Neutrophils, Absolute 3.07 1.70 - 7.00 10*3/mm3 Lymphocytes, Absolute 1.92 0.70 - 3.10 10*3/mm3 Monocytes, Absolute 0.56 0.10 - 0.90 10*3/mm3 Eosinophils, Absolute 0.17 0.00 - 0.40 10*3/mm3 Basophils, Absolute 0.05 0.00 - 0.20 10*3/mm3 Immature Grans, Absolute 0.02 0.00 - 0.05 10*3/mm3 nRBC 0.0 0.0 - 0.2 /100 WBC Lipid panel Collection Time: 12/10/24 12:12 PM Specimen: Blood Result Value Ref Range Total Cholesterol 154 0 - 200 mg/dL Triglycerides 97 0 - 150 mg/dL HDL Cholesterol 71 (H) 40 - 60 mg/dL LDL Cholesterol 65 0 - 100 mg/dL VLDL Cholesterol 18 5 - 40 mg/dL LDL/HDL Ratio 0.90 PE Physical Exam Vitals reviewed. Constitutional: General: She is not in acute distress. Appearance: Normal appearance. She is well-developed. She is not ill-appearing or diaphoretic. HENT: Head: Normocephalic and atraumatic. Eyes: Extraocular Movements: Extraocular movements intact. Conjunctiva/sclera: Conjunctivae normal. Pulmonary: Effort: No respiratory distress. Abdominal: Palpations: Abdomen is soft. Tenderness: There is abdominal tenderness in the right lower quadrant, epigastric area and periumbilical area. There is no guarding or rebound. Negative signs include Morgan's sign. Musculoskeletal: General: Normal range of motion. Cervical back: Normal range of motion. Neurological: General: No focal deficit present. Mental Status: She is alert. Psychiatric: Attention and Perception: She is attentive. Mood and Affect: Mood normal. Speech: Speech normal. Behavior: Behavior normal. Behavior is cooperative. Thought Content: Thought content normal. Judgment: Judgment normal. A/P Diagnoses and all orders for this visit: 1. RUQ pain (Primary) - CT Abdomen Pelvis With Contrast; Future - Ambulatory Referral to Gastroenterology 2. Abdominal pain, RLQ - CT Abdomen Pelvis With Contrast; Future - Ambulatory Referral to Gastroenterology 3. Epigastric pain - pantoprazole (Protonix) 20 MG EC tablet; Take 1 tablet by mouth Daily. Dispense: 30 tablet; Refill: 5 - Ambulatory Referral to Gastroenterology 4. Diarrhea, unspecified type - CT Abdomen Pelvis With Contrast; Future - Ambulatory Referral to Gastroenterology Ongoing RUQ pain with epigastric burning and sharp stabbing pain. Worse with bending over and eating. Reviewed labs, US gallbladder and previous imaging. US gallbladder showed hepatic steatosis. No gallbladder issues. Recommend CT Abdo/pelvis with IV and oral contrast. Will start referral to gastroenterology. Plan on repeating labs on 02/10 at appointment. Remain off of GLP-1. Patient advised to go to ED if pain doesn't improve, worsens or changes. She agrees. Plan of care reviewed with patient at the conclusion of today's visit. Education was provided regarding diagnosis, management and any prescribed or recommended OTC medications. Patient verbalizes understanding of and agreement with management plan. Part of this note may be an electronic cutter operator brick/translation of spoken language to printed textusing the [employer] System. No follow-ups on file. Julianna Freed PA-C documented in this encounter Plan of Treatment Upcoming Encounters Date Type Department Care Team (Late st Contact Info) Description 03/03/2025 8:00 AM EDT Treatment [facility] [address] [place] [address] [address] [place] [phone] Sagar Soto, PT [address] [facility] [address] [place] [id number] 03/10/2025 4:00 PM EDT Treatment [facility] [address] [place] [phone] Sagar Soto, PT [address] [facility] [address] [place] [address] 03/29/2025 3:00 PM EDT Office Visit [facility] [address] [place] [address] Julianna Freed PA-C [address] [place] [address] 03/31/2025 1:00 PM EDT Appointment [facility] [address] [place] [address] 04/05/2025 1:00 PM EDT Outside Facility Service [facility] [address] [phone] Daljit Wilson MD [address] [address] Scheduled Orders Name Type Priority Associated Diagnoses Orde r Schedule CT Abdomen Pelvis With Contrast Imaging Routine RUQ pain Abdominal pain, RLQ Diarrhea, unspecified type Expected: 02/03/2025, Expires: 01/29/2026 Scheduled Referrals Name Type Priority Associated Diagnoses Order Schedule Ambulatory Referral to Gastroenterology Outpatient Referral Routine RUQ pain Abdominal pain, RLQ Epigastric pain Diarrhea, unspecified type Ordered: 01/29/2025 documented as of this encounter Visit Diagnoses Diagnosis RUQ pain- Primary Abdominal pain, right upper quadrant Abdominal pain, RLQ Epigastric pain Abdominal pain, epigastric Diarrhea, unspecified type documented in this encounter Care Teams Voltmeter Operator Relationship Specialty Start Date End Date Julianna Freed PA-C [address] [place] [address] PCP - General Physician Quality Assurance Tester 07/17/18 documented as of this encounter
--- OUTSIDE RECORDS SUMMARY | 2025-01-29 14:45 | XMS_ITS | Encounter Summary ---
Author Organization [facility] Address [address] [place] [address] Care Team Providers Care Office Clinician Name Role Phone Julianna Freed Primary Care Provider Encounter Details Date Type Department Care Team (Late st Contact Info) Description 01/29/2025 2:45 PM EDT Office Visit [facility] [address] [place] [address] Janeen Vanegas [address] [facility] [address] [place] [address] Social History Tobacco Use Types Packs/Day Years [...] on file documented as of this encounter Miscellaneous Notes * Progress Notes - Janeen Vanegas - 01/29/2025 2:45 PM EDT Massage Therapy Note Visit Type IM Visit Type: Follow-up visit, Therapeutic Massage Patient States: the right side of her neck is very painful, and she is experiencing numbness down her right arm Session Information Setting: Outpatient IM Order: Yes Consult Requested By: Self-referral Reason for IM Consult: Patient Request Contact Location: IM treatment room Type of Contact: Repeat/ follow-up visit Missed Opportunity: No Contact Length/ Time: Other (Comment) (90 minute massage therapy session) Patient Presented: Lying on treatment table Musculoskeletal Areas Addressed: upper, middle, lower trapezius; levator scapulae; occipitals/sub-occipitals; infra/supraspinatus; teres minor; latissimus dorsi; quadratus lumborum; glute medius; scalenes; sternocleidomastoid; pectoralis major/minor Pressure Level: FL 4, FL 3 Clinical Massage Therapy Applications Used: myofascial release; hydrotherapy; TrP; XFF; tissue and joint mobilization of head, neck, scapula, shoulder; Slovenian; side-lying shoulder mobilization Intake Questions Patient History: Massage therapy Reason Support Requested : to help decrease chronic neck pain, R>L Approved by Primary Care/ Oncology Provider: Yes Energy Level: High General Signs & Symptoms: Pain or tenderneess Status Upon Arrival Patient Position: Lying on treatment table Social Interactions: Engaged Self Report Pre Massage Pain Score: 5 Post Massage Pain Score: 1 Observations During Tx Physical Observation: Relaxed Changes made to musculoskeletal areas addressed: Moderate Follow Up Last Date of IM Therapy: 01/29/25 Integrative Medicine Follow-Up Needed?: 1x Week Janeen Vanegas documented in this encounter Plan of Treatment Upcoming Encounters Date Type Department Care Team (Late st Contact Info) Description 03/05/2025 2:45 PM EDT Office Visit [facility] [address] [facility]3rd [place] [address] Janeen Vanegas [address] [facility] [address] [place] [address] 03/11/2025 1:00 PM EDT Procedure Visit [facility] [address] [place] [address] Gladys Mccarthy, DO [address] [place] [phone] 03/12/2025 8:30 AM EDT Office Visit [facility] [address] [place] [address] Janeen Vanegas [address] [facility] Jhoana Snell [facility] [address] [place] [address] 03/12/2025 10:30 AM EDT Office Visit [facility] [address] [place] [address] Lucrecia Morales [address] [facility] Jhoana Snell [facility] [address] [place] [address] 03/31/2025 10:00 AM EDT Office Visit [facility] [address] [place] [address] 04/02/2025 9:20 AM EDT Office Visit [facility] [address] [facility] [place] [phone] Ermias Taylor MD [address] [facility] [address] [place] [address] 04/08/2025 3:40 PM EDT Procedure Visit [facility] [address] [place] [phone] Gladys Mccarthy, DO [address] [place] [phone] 04/13/2025 3:50 PM EDT Office Visit [facility] [address] [place] [phone] Carlton Gaines, DO [address] [place] [phone] 05/06/2025 3:40 PM EDT Procedure Visit [facility] [address] [place] [place] [phone] Gladys Mccarthy, DO [address] [place] [address] 06/03/2025 3:40 PM EST Procedure Visit [facility] [address] [place] [address] Gladys Mccarthy, DO [address] [place] [address] 09/07/2025 7:30 AM EST Ovarian Cancer Screening [facility] [address] [facility], 3rd [place] [address] documented as of this encounter Visit Diagnoses Not on filedocumented in this encounter Additional Health Concerns Assessment Noted Time PHQ-9 Depression Total Score: 0 09/30/19 25 3:29 PM EDT A fall risk assessment has been complete d for the patient 12/17/2024 3:28 PM EDT A Body Mass Index follow-up plan has been documented for the patient 02/01/2025 10:44 AM EDT documented as of this encounter Care Teams Office Clinician Relationship Specialty Start Date End Date Julianna Freed PA [address] [place] [address] PCP - General 11/25/20 documented as of this encounter
--- OUTSIDE RECORDS SUMMARY | 2025-02-07 23:44 | XMS_ITS | Encounter Summary ---
Author Organization [facility] Address [address] [place] [address] Care Team Providers Care Spacer Type Bar And Segment Name Role Phone Julianna Freed PA-C Primary Care Provide r Reason for Visit * Reason Comments Abdominal Pain Encounter Details Date Type Department Care Team (Late st Contact Info) Description 02/07/2025 11:44 PM EDT - 02/08/2025 3:20 AM EDT Emergency [facility] EMERGENCY DEPARTMENT [place] [phone] Gabbie Parada MD [address] [place] [address] [place] [phone] Right upper quadrant abdominal pain (Primary Dx) Discharge Disposition: Home or Self Care Social History Tobacco Use Types Packs/Day Years Used Date Smoking Tobacco: Never Passive Smoke Exposure: Never Smokeless Tobacco: Never Alcohol Use Standard Drinks/Week Comments Yes 1 (1 standard drink = 0.6 oz pure alcohol) On average I have less than 1 drink/week PHQ-2 Answer Date Recorded Retired PHQ-9: Brief Depression Severity Measure Score 0 01/25/2023 Abuse Screen Answer Date Recorded Feels Unsafe at Home or Work/School no 02/07/2025 Feels Threatened by Someone no 01/13 Does Anyone Try to Keep You From Having Contact with Others or Doing Things Outside Your Home? no 02/07/2025 Physical Signs of Abuse Present no 02/07/2025 PHQ-2 Answer Date Recorded Patient Health Questionnaire-2 Score 0 08/10/2024 Comments No Sex and Gender Information Value Date Recorded Sex Assigned at Female 12/10/2024 10:23 AM EDT Legal Sex Female 11:40 AM EDT Gender Identity Not on file Sexual Orientation Not on file Travel History Travel Start Travel End [place] 02/03/2025 02/07/2025 documented as of this encounter Last Filed Vital Signs Vital Sign Reading Time Taken Comments Blood Pressure 111/60 02/08/2025 2:00 AM EDT Pulse 87 02/08/2025 2:30 AM EDT Temperature 36.8 C (98.2 F) 02/07/2025 11:43 PM EDT Respiratory Rate 18 02/07/2025 11:43 PM EDT Oxygen Saturation 98% 02/08/2025 2:30 AM EDT Inhaled Oxygen Concentration - - Weight 87.3 kg (192 lb 8 oz) 02/07/2025 11:43 PM EDT Height 152.4 cm (5') 02/07/2025 11:43 PM EDT Body Mass Index 37.6 02/07/2025 11:43 PM EDT documented in this encounter Functional Status * Calculated C-SSRS Risk Score (Lifetime/Recent) Answer Date of Assessment Author No Risk Indicated 02/07/2025 11:43 PM EDT Denzel Jackson RN * [place] Suicide Severity Rating Scale (Screener/Recent Self-Report) Question Answer Date of Assessment Author 1. Wish to be (Past 1 Month) No 025 11:43 PM EDT Denzel Jackson, RN 2. Non-Specific Active Suici shaneka Thoughts (Past 1 Month) No 02/07/2025 11:43 PM EDT Nichelle Jackson RN 6. Suicidal Behavior (Lifetime) No 11:43 PM EDT Denzel Jackson, RN documented as of this encounter Discharge Instructions * Attachments The following attachments cannot be sent through Care Everywhere. * Abdominal Pain Adult (Macedonian) documented in this encounter Medications at Time of Discharge desonide (DESOWEN) 0.05 % ointment Apply to the axilla BID x2 weeks, then take two week break fexofenadine (JUSTO) 180 MG tabletIndications:S easonal allergies [...] NEEDED FOR PAIN losartan (COZAAR) 50 MG tabletIndications:E ssential hypertension Take 1 tablet by mouth Daily. 90 tablet 3 5 methocarbamol (ROBAXIN) 500 MG tabletIndications:P ain of left hip TAKE 2 TABLETS BY MOUTH AT NIGHT 180 tablet 5 montelukast (SINGULAIR) 10 MG tabletIndications:S easonal allergies Take 1 tablet by mouth every night at bedtime. 90 tablet 3 5 nabumetone (RELAFEN) 750 MG tablet 1 tablet Daily. 9 ondansetron (Zofran) 4 MG tabletIndications:R UQ pain,Nausea Take 1 tablet by mouth Every 8 (Eight) Hours As Needed for Nausea or Vomiting. 30 tablet 1 5 Probiotic Product (PROBIOTIC-10 ULTIMATE PO) rosuvastatin (CRESTOR) 10 MG tabletIndications:M ixed hyperlipidemia Take 1 tablet by mouth Daily. 90 tablet 3 5 simethicone (MYLICON) 80 MG chewable tabletIndications:R UQ pain,Bloating Chew 1 tablet Every 6 (Six) Hours As Needed for Flatulence. 90 tablet 1 5 tretinoin (RETIN-A) 0.025 % cream APPLY A PEA SIZED AMOUNT TO THE AFFECTED AREA(S) BY TOPICAL ROUTE ONCE DAILY AT BEDTIME 5 amLODIPine (NORVASC) 5 MG tabletIndications:E ssential hypertension Take 1 tablet by mouth Daily. 90 tablet 3 5 02/11/20 25 FLUoxetine (PROzac) 20 MG capsuleIndications: Anxiety Take 1 capsule by mouth Daily. 90 capsule 3 4 02/11/20 25 pantoprazole (Protonix) 20 MG EC tabletIndications:E pigastric pain Take 1 tablet by mouth Daily. 30 tablet 5 5 02/11/20 25 documented as of this encounter Miscellaneous Notes * [facility] Provider Note - Gabbie Parada MD - 02/07/2025 11:55 PM EDT Images from the original note were not included. Subjective History of Present Illness: Patient is a 54-year-old female with history of hypertension, psoriatic arthritis that presents to the emergency department with epigastric and right upper quadrant abdominal pain. States that she has been dealing with this pain intermittently for several years. Notes that it is worsened in the last 7 months. States that she has been following with her PCP who is scheduled to have a CT scan performed in a few weeks and also has a GI appointment next month. States that the pain worsened today and she also has nausea. Denies vomiting, chest pain, shortness of breath, fevers. Notes having loose stools but denies diarrhea. Denies prior abdominal surgeries Nurses Notes reviewed and agree, including vitals, allergies, social history and prior medical history. REVIEW OF SYSTEMS: All systems reviewed and not pertinent unless noted. Review of Systems All other systems reviewed and are negative. Past Medical History: Diagnosis Date Anemia Cervical disc disorder June 2011 Had cervical disc replacement and fusion Aug 08, 2011 Chronic pain disorder 2000 Was diagnosed with psoriatic arthritis in 2003 [...] 2011 Year is approximate Urinary tract infection Allergies: Patient has no known allergies. Past Surgical History: Procedure Laterality Date CERVICAL DISC ARTHROPLASTY 08/08/2011 Dr Joshua Capps CERVICAL FUSION 08/08/2011 Dr Joshua Capps COLONOSCOPY January 2023 DILATION AND CURETTAGE, DIAGNOSTIC / THERAPEUTIC EYE SURGERY 1998 [facility] FOOT SURGERY Right 06/14/2016 great toe ORTHOPEDIC SURGERY June 14, 2016 Bunionectomy and fusion, great toe, right foot REDUCTION MAMMAPLASTY Bilateral [address] [facility] SPINAL FUSION August 08, 2011 Cervical disc replacement and fusion SPINE SURGERY Cervical disc replacement ans fusion STEROID INJECTION Social History Socioeconomic History Marital status: Tobacco [...] vasectomy/ I had an ablation in 2019 Family History Problem Relation Age of Onset Hypertension Mother Osteoarthritis Mother Osteoarthritis Sister Cancer Maternal Grandmother Hypertension Maternal Grandmother Osteoarthritis Maternal Grandmother Cancer Maternal Grandfather Hypertension Maternal Grandfather Mental illness Father Bipolar disorder and dementia Objective Physical Exam: BP 111/60 Pulse 82 Temp 98.2 ??F (36.8 ??C) (Oral) Resp 18 Ht 152.4 cm (60 ) Wt 87.3 kg (192 lb 8 oz) SpO2 97% BMI 37.60 kg/m?? Physical Exam Cardiovascular: Rate and Rhythm: Normal rate and regular rhythm. Pulmonary: Effort: Pulmonary effort is normal. Breath sounds: Normal breath sounds. Abdominal: Palpations: Abdomen is soft. Tenderness: There is abdominal tenderness in the right upper quadrant. Neurological: General: No focal deficit present. Mental Status: She is alert. Procedures ED Course: ED Course as of 02/08/25 0230 SatFeb 08, 2025 0029 EKG interpretation 0009: Sinus rhythm, rate of 85, QT and QRS intervals normal limits, normal axis, no STEMI [LB] ED Course User Index [LB] Gabbie Parada MD Lab Results (last 24 hours) Procedure Component Value Units Date/Time CBC & Differential [[id number]] (Abnormal) Collected: 02/08/25 0005 Specimen: Blood Updated: 02/08/2511 Narrative: The following orders were created for panel order CBC & Differential. Procedure Abnormality Status --------- ------ CBC Auto Differential[[id number]] Abnormal Final result Please view results for these tests on the individual orders. Comprehensive Metabolic Panel [[id number]] (Abnormal) Collected: 02/08/254 Specimen: Blood Updated: 02/08/2529 Glucose 118 mg/dL BUN 22.9 mg/dL Creatinine 1.13 mg/dL Sodium 138 mmol/L Potassium 3.7 mmol/L Chloride 103 mmol/L CO2 21.8 mmol/L Calcium 9.2 mg/dL Total Protein 6.4 g/dL Albumin 3.8 g/dL ALT (SGPT) 44 U/L AST (SGOT) 37 U/L Alkaline Phosphatase 54 U/L Total Bilirubin 0.3 mg/dL Globulin 2.6 gm/dL A/G Ratio 1.5 g/dL BUN/Creatinine Ratio 20.3 Anion Gap 13.2 mmol/L eGFR 58.3 mL/min/1.73 Narrative: GFR Categories in Chronic Kidney Disease (CKD) GFR Category GFR (mL/min/1.73) Interpretation G1 90 or greater Normal or high (1) G2 60-89 Mild decrease (1) G3a 45-59 Mild to moderate decrease G3b 30-44 Moderate to severe decrease G4 15-29 Severe decrease G5 14 or less Kidney failure (1)In the absence of evidence of kidney disease, neither GFR category G1 or G2 fulfill the criteriafor CKD. eGFR calculation 2020 CKD-EPI creatinine equation, which does not include race as a factor Lipase [[id number]] (Normal) Collected: 02/08/254 Specimen: Blood Updated: 02/08/2529 Lipase 38 U/L hCG, Quantitative, [[id number]] Collected: 02/08/254 Specimen: Blood Updated: 02/08/2539 HCG Quantitative 1.68 mIU/mL Narrative: HCG Ranges by Gestational Age Females - non- premenopausal </= 1mIU/mL HCG Females - postmenopausal </= 7mIU/mL HCG 3 Weeks 5.8 - 71.2 mIU/mL 4 Weeks 9.5 - 750 mIU/mL 5 Weeks 217 - 7,138 mIU/mL 6 Weeks 158 - 31,795 mIU/mL 7 Weeks 3,697 - 163,563 mIU/mL 8 Weeks 32,065 - 149,571 mIU/mL 9 Weeks 63,803 - 151,410 mIU/mL 10 Weeks 46,509 - 186,977 mIU/mL 12 Weeks 27,832 - 210,612 mIU/mL 14 Weeks 13,950 - 62,530 mIU/mL 15 Weeks 12,039 - 70,971 mIU/mL 16 Weeks 9,040 - 56,451 mIU/mL 17 Weeks 8,175 - 55,868 mIU/mL 18 Weeks 8,099 - 58,176 mIU/mL CBC Auto Differential [[id number]] (Abnormal) Collected: 02/08/254 Specimen: Blood Updated: 02/08/25 0012 WBC 7.89 10*3/mm3 RBC 3.71 10*6/mm3 Hemoglobin 10.8 g/dL Hematocrit 33.3 % MCV 89.8 fL MCH 29.1 pg MCHC 32.4 g/dL RDW 12.9 % RDW-SD 42.4 fl MPV 9.8 fL Platelets 258 10*3/mm3 Neutrophil % 60.8 % Lymphocyte % 23.4 % Monocyte % 12.2 % Eosinophil % 2.8 % Basophil % 0.4 % Immature Grans % 0.4 % Neutrophils, Absolute 4.80 10*3/mm3 Lymphocytes, Absolute 1.85 10*3/mm3 Monocytes, Absolute 0.96 10*3/mm3 Eosinophils, Absolute 0.22 10*3/mm3 Basophils, Absolute 0.03 10*3/mm3 Immature Grans, Absolute 0.03 10*3/mm3 High Sensitivity Troponin T [[id number]] (Normal) Collected: 02/08/254 Specimen: Blood Updated: 02/08/25 0027 HS Troponin T 7 ng/L Urinalysis With Microscopic If Indicated (No Culture) - Urine, Clean Catch [[id number]] (Abnormal) Collected: 02/08/25147 Specimen: Urine, Clean Catch Updated: 02/08/25 0154 Color, UA Yellow Appearance, UA Clear pH, UA 6.0 Specific [place], UA 1.010 Glucose, UA Negative Ketones, UA Negative Bilirubin, UA Negative Blood, UA Small (1+) Protein, UA Negative Leuk Esterase, UA Trace Nitrite, UA Negative Urobilinogen, UA 0.2 E.U./dL Urinalysis, Microscopic Only - Urine, Clean Catch [[id number]] (Abnormal) Collected: 02/08/25147 Specimen: Urine, Clean Catch Updated: 02/08/25 0157 RBC, UA 0-2 /HPF WBC, UA 3-5 /HPF Bacteria, UA Trace /HPF Squamous Epithelial Cells, UA 3-6 /HPF Hyaline Casts, UA 0-2 /LPF Methodology Manual Light Microscopy CT Abdomen Pelvis With Contrast Result Date: 02/08/2025 CT ABDOMEN PELVIS W CONTRAST Date of Exam: 02/08/2025 2:02 AM EDT Indication: epigastric/RUQ pain. Comparison: 12/31/2024, 07/28/2018 Technique: Axial CT images were obtained of the abdomen and pelvis following the uneventful intravenous administration of intravenous contrast. Reconstructed coronal and sagittal images were also obtained. Automated exposure control and iterative construction methods were used. Findings: Lung Bases: The visualized lung bases and lower mediastinal structures demonstrates no acute process. Liver: The liver appears mildly hypodense consistent with steatosis.. No focal lesions. Biliary/Gallbladder: The gallbladder is normal without evidence of radiopaque stones. Thebiliary tree is nondilated. Spleen: Spleen is normal in size and CT density. Pancreas: Pancreas is normal. There is no evidence of pancreatic mass or peripancreatic fluid. Kidneys: Kidneys are normalin size. There are no stones or hydronephrosis. Adrenals: Adrenal glands are unremarkable. Retroperi toneal/Lymph Nodes/Vasculature: No retroperitoneal adenopathy is identified. Gastrointestinal/Mesentery: The bowel loops are non-dilated without wall thickening or mass. The appendix appears within normal limits. No evidence of obstruction. No free air. No mesenteric fluid collections identified. Mesenteric vasculature appears unremarkable. No evidence of hernia. No significant stool burden. Bladder: The bladder is normal. Genital: Unremarkable Bony Structures: Visualized bony structures are consistent with the patient's age. No acute osseous abnormality. Impression: Impression: 1.No acute intra-abdominal or intrapelvic process. 2.Ancillary findings as described above. Electronically Signed: Aubree Bruce MD 02/08/2025 2:15 AM EDT Workstation ID: [id number] [facility] Number of Diagnoses or Management Options Right upper quadrant abdominal pain Diagnosis management comments: 54-year-old female presenting with right upper quadrant abdominal pain. On initial presentation, patient is overall very well- appearing and in no distress. On exam, shehas minimal epigastric and right upper quadrant tenderness. Lungs are clear to auscultation. Will give pain and nausea medication as well as Pepcid and GI cocktail. Lab work showed slight elevation in creatinine at 1.13. Will give bolus of fluids. LFTs slightly elevated but appears similar to prior. Otherwise, lab work was generally unremarkable and nonactionable. CT scan did not show acute abnormalities other than mild steatosis. Patient was aware of steatosis. Etiology currently unclear, however, I do have lower suspicion for cholecystitis, hepatitis, pancreatitis, bowel obstruction or bowel perforation, ACS, or other emergent causes for this presentation. I do believe patient will be safe for discharge and follow-up at her scheduled GI appointment andwith her PCP. Patient may require further testing including endoscopy, HIDA scan, gastric emptying test, etc. My independent interpretation of abdominal CT: No large AAA Medications Sodium Chloride (PF) 0.9 % 10 mL (has no administration in time range) aluminum-magnesium hydroxide-simethicone (MAALOX MAX) 400-400-40 MG/5ML suspension 15 mL (15 mL Oral Given 02/08/25 0016) famotidine (PEPCID) injection 20 mg (20 mg Intravenous Given 02/08/25 0020) ondansetron (ZOFRAN) injection 4 mg (4 mg Intravenous Given 02/08/25 0020) ketorolac (TORADOL) injection 15 mg (15 mg Intravenous Given 02/08/25 0020) lactated ringers bolus 1,000 mL (1,000 mL Intravenous New Bag 02/08/25 0100) diatrizoate meglumine-sodium (GASTROGRAFIN) 66-10 % oral solution (15 mL Given 02/08/25 0116) iopamidol (ISOVUE-370) 76 % injection 100 mL (75 mL Intravenous Given 02/08/25 0210) ----- ED Disposition ED Disposition Discharge Condition Stable Comment -- Final diagnoses: Right upper quadrant abdominal pain Your Follow-Up Providers Julianna Freed PA-C. Specialties: Emergency Medicine, Family Medicine, Urgent Care, Physician [employer] [address] [place] [id number] Contact information for after-discharge care Follow-up information has not been specified. Your medication list CONTINUE taking these medications Instructions Last Dose Given Next Dose Due amLODIPine 5 MG tablet Commonly known as: NORVASC TAKE 1 TABLET BY MOUTH EVERY DAY desonide 0.05 % ointment Commonly known as: DESOWEN Apply to the axilla BID x2 weeks, then take two week break fexofenadine 180 MG tablet Commonly known as: JUSTO Take 1 tablet by mouth Daily. FLUoxetine 20 MG capsule Commonly known as: PROzac Take 1 capsule by mouth Daily. Humira (2 Pen) 40 MG/0.4ML Auto-injector Kit Generic drug: Adalimumab Inject 0.4 mL every week by subcutaneous route. hydrOXYzine 25 MG tablet Commonly known as: ATARAX Take 1 tablet by mouth 3 (Three) Times a Day As Needed for Anxiety. ketoconazole 2 % shampoo Commonly known as: NIZORAL Apply topically to the appropriate area as directed 2 (Two) Times a Week. lidocaine 5 % ointment Commonly known as: XYLOCAINE APPLY TOPICALLY TO BACK 2 TO 3 TIMES A DAY NEEDED FOR PAIN losartan 50 MG tablet Commonly known as: COZAAR Take 1 tablet by mouth Daily. methocarbamol 500 MG tablet Commonly known as: ROBAXIN TAKE 2 TABLETS BY MOUTH AT NIGHT montelukast 10 MG tablet Commonly known as: SINGULAIR TAKE 1 TABLET BY MOUTH AT BEDTIME nabumetone 750 MG tablet Commonly known as: RELAFEN 1 tablet Daily. ondansetron 4 MG tablet Commonly known as: Zofran Take 1 tablet by mouth Every 8 (Eight) Hours As Needed for Nausea or Vomiting. pantoprazole 20 MG EC tablet Commonly known as: Protonix Take 1 tablet by mouth Daily. PROBIOTIC-10 ULTIMATE PO rosuvastatin 10 MG tablet Commonly known as: CRESTOR TAKE 1 TABLET BY MOUTH EVERY DAY simethicone 80 MG chewable tablet Commonly known as: MYLICON Chew 1 tablet Every 6 (Six) Hours As Needed for Flatulence. tretinoin 0.025 % cream Commonly known as: RETIN-A APPLY A PEA SIZED AMOUNT TO THE AFFECTED AREA(S) BY TOPICAL ROUTE ONCE DAILY AT BEDTIME documented in this encounter Plan of Treatment Upcoming Encounters Date Type Department Care Team (Late st Contact Info) Description 03/03/2025 8:00 AM EDT Treatment [facility] [address] [address] [address] [place] [phone] Sagar Soto, PT [address] [place] [address] 03/10/2025 4:00 PM EDT Treatment [facility] [address] [facility] [place] [phone] Sagar Soto, PT [address] [place], [place] [id number] 03/29/2025 3:00 PM EDT Office Visit [facility] [address] [place] [phone] Julianna Freed PA-C [address] [place] [address] 03/31/2025 1:00 PM EDT Appointment [facility] NUCLEAR [facility] [address] [place] [phone] 04/05/2025 1:00 PM EDT Outside Facility Service [facility] GASTRO[facility]OLOG[facility] [address] [phone] Daljit Wilson MD [address] [address] documented as of this encounter Procedures Procedure Name Priority Date/Time Associated Diagnosis Comments CT ABDOMEN PELVIS W CONTRAST STAT 02/08/2025 2:10 AM EDT URINALYSIS, MICROSCOPIC ONLY STAT 02/08/2025 1:48 AM EDT URINALYSIS W/ MICROSCOPIC IF INDICATED (NO CULTURE) STAT 02/08/2025 1:48 AM EDT ECG 12-LEAD STAT 02/08/2025 12:09 AM EDT FAYE TOP STAT 02/08/2025 12:05 AM EDT GOLD TOP - SST STAT 02/08/2025 12:05 AM EDT DK GREEN TOP STAT 02/08/2025 12:05 AM EDT CBC WITH AUTO DIFFERENTIAL STAT 02/08/2025 12:05 AM EDT LAVENDER TOP STAT 02/08/2025 12:05 AM EDT LIGHT BLUE TOP STAT 02/08/2025 12:05 AM EDT RAINBOW DRAW STAT 02/08/2025 12:05 AM EDT TROPONIN STAT 02/08/2025 12:05 AM EDT CBC AND DIFFERENTIAL STAT 02/08/2025 12:05 AM EDT HCG, QUANTITATIVE, STAT 02/08/2025 12:05 AM EDT LIPASE STAT 02/08/2025 12:05 AM EDT COMPREHENSIVE METABOLIC PANEL STAT 02/08/2025 12:05 AM EDT documented in this encounter Results * CT Abdomen Pelvis With Contrast (02/08/2025 2:10 AM EDT) Anatomical Region Laterality Modality Abdomen, Pelvis N/A Computed Tomogra phy 02/08/2025 2:14 AM EDT Impressions 02/08/2025 2:15 AM EDT Impression: 1.No acute intra-abdominal or intrapelvic process. 2.Ancillary findings as described above. Electronically Signed: Aubree Bruce MD 02/08/2025 2:15 AM EDT Workstation ID: [id number] Narrative 02/08/2025 2:[address] ABDOMEN PELVIS W CONTRAST Date of Exam: 02/08/2025 2:02 AM EDT Indication: epigastric/RUQ pain. Comparison: 12/31/2024, 07/28/2018 Technique: Axial CT images were obtained of the abdomen and pelvis following the uneventful intravenous administration of intravenous contrast. Reconstructed coronal and sagittal images were also obtained. Automated exposure control and iterative construction methods were used. Findings: Lung Bases: The visualized lung bases and lower mediastinal structures demonstrates no acute process. Liver: The liver appears mildly hypodense consistent with steatosis.. No focal lesions. Biliary/Gallbladder: The gallbladder is normal without evidence of radiopaque stones. The biliary tree is nondilated. Spleen: Spleen is normal in size and CT density. Pancreas: Pancreas is normal. There is no evidence of pancreatic mass or peripancreatic fluid. Kidneys: Kidneys are normal in size. There are no stones or hydronephrosis. Adrenals: Adrenal glands are unremarkable. Retroperitoneal/Lymph Nodes/Vasculature: No retroperitoneal adenopathy is identified. Gastrointestinal/Mesentery: The bowel loops are non-dilated without wall thickening or mass. The appendix appears within normal limits. No evidence of obstruction. No free air. No mesenteric fluid collections identified. Mesenteric vasculature appears unremarkable. No evidence of hernia. No significant stool burden. Bladder: The bladder is normal. Genital: Unremarkable Bony Structures: Visualized bony structures are consistent with the patient's age. No acute osseous abnormality. Procedure Note Aubree Bruce MD - 02/08/2025 CT ABDOMEN PELVIS W CONTRAST Date of Exam: 02/08/2025 2:02 AM EDT Indication: epigastric/RUQ pain. Comparison: 12/31/2024, 07/28/2018 Technique: Axial CT images were obtained of the abdomen and pelvisfollowing the uneventful intravenous administration of intravenouscontrast. Reconstructed coronal and sagittal images were also obtained.Automated exposure control and iterative construction methods were used. Findings: Lung Bases: The visualized lung bases and lower mediastinal structures demonstrates noacute process. Liver: The liver appears mildly hypodense consistent with steatosis.. No focallesions. Biliary/Gallbladder: The gallbladder is normal without evidence of radiopaque stones. Thebiliary tree is nondilated. Spleen: Spleen is normal in size and CT density. Pancreas: Pancreas is normal. There is no evidence of pancreatic mass orperipancreatic fluid. Kidneys: Kidneys are normal in size. There are no stones or hydronephrosis. Adrenals: Adrenal glands are unremarkable. Retroperitoneal/Lymph Nodes/Vasculature: No retroperitoneal adenopathy is identified. Gastrointestinal/Mesentery: The bowel loops are non-dilated without wall thickening or mass. Theappendix appears within normal limits. No evidence of obstruction. No freeair. No mesenteric fluid collections identified. Mesenteric vasculatureappears unremarkable. No evidence of hernia. No significant stool burden. Bladder: The bladder is normal. Genital: Unremarkable Bony Structures: Visualized bony structures are consistent with the patient's age. No acuteosseous abnormality. IMPRESSION: Impression: 1.No acute intra-abdominal or intrapelvic process. 2.Ancillary findings as described above. Electronically Signed: Aubree Bruce MD 02/08/2025 2:15 AM EDT Workstation ID: [id number] us Gabbie Parada MD IMG CT ORDERABLES Final Resu lt * (ABNORMAL) Urinalysis, Microscopic Only - Urine, Clean Catch (02/08/2025 1:48 AM EDT) RBC, UA 0-2 None Seen, 0-2 /HPF 02/08/2025 1:57 AM EDT [facility] WBC, UA 3-5(A) None Seen, 0-2 /HPF 02/08/2025 1:57 AM EDT [facility] Bacteria, UA Trace(A) None Seen /HPF 02/08/2025 1:57 AM EDT [facility] Squamous Epithelial Cells, UA 3-6(A) None Seen, 0-2 /HPF 02/08/2025 1:57 AM EDT [facility] Hyaline Casts, UA 0-2 None Seen /LPF 02/08/2025 1:57 AM EDT [facility] Methodology Manual Light Microscopy 02/08/2025 1:57 AM EDT [facility] Urine Urine specimen obtained by clean catch procedure / Unknown Collection / Unknown 02/08/2025 1:48 AM EDT 02/08/2025 1:50 AM EDT us Gabbie Parada MD URINE ORDERABLES Final Resul t [facility]
[address] [place] [address], [place] * (ABNORMAL) Urinalysis With Microscopic If Indicated (No Culture) - Urine, Clean Catch (02/08/2025 1:48 AM EDT) Color, UA Yellow Yellow, Straw 02/08/2025 1:54 AM EDT [facility] Appearance, UA Clear Clear 02/08/2025 1:54 AM EDT [facility] pH, UA 6.0 5.0 - 8.0 02/08/2025 1:54 AM EDT [facility] Specific [place], UA 1.010 1.005 - 1.030 02/08/2025 1:54 AM EDT [facility] Glucose, UA Negative Negative 02/08/2025 1:54 AM EDT [facility] Ketones, UA Negative Negative 02/08/2025 1:54 AM EDT [facility] Bilirubin, UA Negative Negative 02/08/2025 1:54 AM EDT [facility] Blood, UA Small (1+)(A) Negative 02/08/2025 1:54 AM EDT [facility] Protein, UA Negative Negative 02/08/2025 1:54 AM EDT [facility] Leuk Esterase, UA Trace(A) Negative 02/08/2025 1:54 AM EDT [facility] Nitrite, UA Negative Negative 02/08/2025 1:54 AM EDT [facility] Urobilinogen, UA 0.2 E.U./dL 0.2 - 1.0 E.U./dL 02/08/2025 1:54 AM EDT [facility] Urine Urine specimen obtained by clean catch procedure / Unknown Collection / Unknown 02/08/2025 1:48 AM EDT 02/08/2025 1:50 AM EDT us Gabbie Parada MD URINE ORDERABLES Final Resul t [facility]
[address] [place] [address], [place] * ECG 12 Lead Chest Pain (02/08/2025 12:09 AM EDT) QT Interval 404 ms ECG QTC Interval 480 ms ECG 02/08/2025 12:0 9 AM EDT 02/09/2025 4:28 AM EDT Narrative ECG - 02/09/2025 4:28 AM EDT Test Reason : Chest Pain Blood Pressure : */* mmHG Vent. Rate : 85 BPM Atrial Rate : 85 BPM P-R Int : 134 ms QRS Dur : 88 ms QT Int : 404 ms P-R-T Axes : 57 61 30 degrees QTcB Int : 480 ms Normal sinus rhythm QTcB >= 480 msec Abnormal ECG When compared with ECG of 16-Dec-2018 08:44, No significant change was found Confirmed by Gabbie Parada ([id number]) on 02/09/2025 4:28:18 AM Referred By: Confirmed By: Gabbie Parada Procedure Note Gabbie Parada MD - 02/09/2025 Test Reason : Chest Pain Blood Pressure : */* mmHG Vent. Rate : 85 BPM Atrial Rate : 85 BPM P-R Int : 134 ms QRS Dur : 88 ms QT Int : 404 ms P-R-T Axes : 57 61 30 degrees QTcB Int : 480 ms Normal sinus rhythm QTcB >= 480 msec Abnormal ECG When compared with ECG of 16-Dec-2018 08:44, No significant change was found Confirmed by Gabbie Parada ([id number]) on 02/09/2025 4:28:18 AM Referred By: Confirmed By: Gabbie Parada Gabbie Parada MD ECG ORDERABLES Final Result ECG * High Sensitivity Troponin T (02/08/2025 12:05 AM EDT) HS Troponin T 7 <14 ng/L 02/08/2025 12:27 AM EDT [facility] Blood Venipuncture / Unknown 02/08/2025 12:05 AM EDT 02/08/2025 12:10 AM EDT us Gabbie Parada MD LAB BLOOD ORDERABLES Final R esult [facility]
[address] [facility] [address] [place] [address], * (ABNORMAL) CBC Auto Differential (02/08/2025 12:05 AM EDT) Pathologist [facility] WBC 7.89 3.40 - 10.80 10*3/mm3 02/08/2025 12:12 AM EDT [facility] RBC 3.71(L) 3.77 - 5.28 10*6/mm3 02/08/2025 12:12 AM EDT [facility] Hemoglobin 10.8(L) 12.0 - 15.9 g/dL 02/08/2025 12:12 AM EDT [facility] Hematocrit 33.3(L) 34.0 - 46.6 % 02/08/2025 12:12 AM EDT [facility] MCV 89.8 79.0 - 97.0 fL 02/08/2025 12:12 AM EDT [facility] MCH 29.1 26.6 - 33.0 pg 02/08/2025 12:12 AM EDT [facility] MCHC 32.4 31.5 - 35.7 g/dL 02/08/2025 12:12 AM EDT [facility] RDW 12.9 12.3 - 15.4 % 02/08/2025 12:12 AM EDT [facility] RDW-SD 42.4 37.0 - 54.0 fl 02/08/2025 12:12 [facility] MPV 9.8 6.0 - 12.0 fL 02/08/2025 12:12 AM EDT [facility] Platelets 258 140 - 450 10*3/mm3 02/08/2025 12:12 AM EDT [facility] Neutrophil % 60.8 42.7 - 76.0 % 02/08/2025 12:12 AM T [facility] Lymphocyte % 23.4 19.6 - 45.3 % 02/08/2025 12:12 AM [facility] Monocyte % 12.2(H) 5.0 - 12.0 % 02/08/2025 12:12 AM [facility] Eosinophil % 2.8 0.3 - 6.2 % 02/08/2025 12:12 AM [facility] Basophil % 0.4 0.0 - 1.5 % 02/08/2025 12:12 AM [facility] Immature Grans % 0.4 0.0 - 0.5 % 02/08/2025 12:12 AM [facility] Neutrophils, Absolute 4.80 1.70 - 7.00 10*3/mm3 02/08/2025 12:12 AM [facility] Lymphocytes, Absolute 1.85 0.70 - 3.10 10*3/mm3 02/08/2025 12:12 AM [facility] Monocytes, Absolute 0.96(H) 0.10 - 0.90 10*3/mm3 02/08/2025 12:12 AM [facility] Eosinophils, Absolute 0.22 0.00 - 0.40 10*3/mm3 02/08/2025 12:12 AM [facility] Basophils, Absolute 0.03 0.00 - 0.20 10*3/mm3 02/08/2025 12:12 AM [facility] Immature Grans, Absolute 0.03 0.00 - 0.05 10*3/mm3 02/08/2025 12:12 AM [facility] Blood Venipuncture / Unknown 02/08/2025 12:05 AM EDT 02/08/2025 12:10 AM EDT us Gabbie Parada MD LAB BLOOD ORDERABLES Final R esult [facility]
[address] [facility] [address] [place] [address], [place] * Light Blue Top (02/08/2025 12:05 AM EDT) Extra Tube Hold for add-ons. 02/08/2025 12:15 AM EDT [facility] Comment:Auto resulted Blood Venipuncture / Unknown 02/08/2025 12:05 AM EDT 02/08/2025 12:10 AM EDT Gabbie Parada MD LAB BLOOD ORDER ONLY Final R esult Performing Organization Address City/[facility]/ZIP Co de Phone Number [facility]
[address] [facility] [address] [place] [address], [place] * Faye Top (02/08/2025 12:05 AM EDT) Extra Tube Hold for add-ons. 02/08/2025 12:15 AM EDT [facility] Comment:Auto resulted. Blood Venipuncture / Unknown 02/08/2025 12:05 AM EDT 02/08/2025 12:10 AM EDT us Gabbie Parada MD LAB BLOOD ORDER ONLY Final R esult [facility]
[address] [facility] [address] [place] [address], [place] * Gold Top - SST (02/08/2025 12:05 AM EDT) Extra Tube Hold for add-ons. 02/08/2025 12:15 AM EDT [facility] Comment:Auto resulted. Blood Venipuncture / Unknown 02/08/2025 12:05 AM EDT 02/08/2025 12:10 AM EDT us Gabbie Parada MD LAB BLOOD ORDER ONLY Final R esult [facility]
[address] [facility] [address] [place] [address], [place] * Lavender Top (02/08/2025 12:05 AM EDT) Extra Tube hold for add-on 02/08/2025 12:15 AM EDT [facility] Comment:Auto resulted Blood Venipuncture / Unknown 02/08/2025 12:05 AM EDT 02/08/2025 12:10 AM EDT Gabbie Parada MD LAB BLOOD ORDER ONLY Final R esult Performing Organization Address City/[facility]/ZIP Co de Phone Number [facility]
[address] [facility] [address] [place] [address], [place] * Green Top (Gel) (02/08/2025 12:05 AM EDT) Extra Tube Hold for add-ons. 02/08/2025 12:15 AM EDT [facility] Comment:Auto resulted. Blood Venipuncture / Unknown 02/08/2025 12:05 AM EDT 02/08/2025 12:10 AM EDT Gabbie Parada MD LAB BLOOD ORDER ONLY Final R esult [facility]
[address] [facility] [address] [place] [address], [place] * hCG, Quantitative, (02/08/2025 12:05 AM EDT) HCG Quantitative 1.68 mIU/mL 02/09/20 12:40 AM EDT [facility] Blood Venipuncture / Unknown 02/08/2025 12:05 AM EDT 02/08/2025 12:10 AM EDT Narrative [facility] - 02/08/2025 12:40 AM EDT HCG Ranges by Gestational Age Females - non- premenopausal </= 1mIU/mL HCG Females - postmenopausal </= 7mIU/mL HCG 3 Weeks 5.8 - 71.2 mIU/mL 4 Weeks 9.5 - 750 mIU/mL 5 Weeks 217 - 7,138 mIU/mL 6 Weeks 158 - 31,795 mIU/mL 7 Weeks 3,697 - 163,563 mIU/mL 8 Weeks 32,065 - 149,571 mIU/mL 9 Weeks 63,803 - 151,410 mIU/mL 10 Weeks 46,509 - 186,977 mIU/mL 12 Weeks 27,832 - 210,612 mIU/mL 14 Weeks 13,950 - 62,530 mIU/mL 15 Weeks 12,039 - 70,971 mIU/mL 16 Weeks 9,040 - 56,451 mIU/mL 17 Weeks 8,175 - 55,868 mIU/mL 18 Weeks 8,099 - 58,176 mIU/mL Gabbie Parada MD LAB BLOOD ORDERABLES Final R esult [facility]
[address] * Lipase (02/08/2025 12:05 AM EDT) Pathologist [facility] Lipase 38 13 - 60 U/L 02/08/2025 12:30 AM EDT [facility] Blood Venipuncture / Unknown 02/08/2025 12:05 AM EDT 02/08/2025 12:10 AM EDT Gabbie Parada MD LAB BLOOD ORDERABLES Final R esult [facility]
[address] * (ABNORMAL) Comprehensive Metabolic Panel (02/08/2025 12:05 AM EDT) Glucose 118(H) 65 - 99 mg/dL 02/08/2025 12:30 AM [facility] BUN 22.9(H) 6.0 - 20.0 mg/dL 02/08/2025 12:30 AM [facility] Creatinine 1.13(H) 0.57 - 1.00 mg/dL 02/08/2025 12:30 AM [facility] Sodium 138 136 - 145 mmol/L 02/08/2025 12:30 AM [facility] Potassium 3.7 3.5 - 5.2 mmol/L 02/08/2025 12:30 AM [facility] Chloride 103 98 - 107 mmol/L 02/08/2025 12:30 AM [facility] CO2 21.8(L) 22.0 - 29.0 mmol/L 02/08/2025 12:30 AM [facility] Calcium 9.2 8.6 - 10.5 mg/dL 02/08/2025 12:30 AM [facility] Total Protein 6.4 6.0 - 8.5 g/dL 02/08/2025 12:30 AM [facility] Albumin 3.8 3.5 - 5.2 g/dL 02/08/2025 12:30 AM [facility] ALT (SGPT) 44(H) 1 - 33 U/L 02/08/2025 12:30 AM [facility] AST (SGOT) 37(H) 1 - 32 U/L 02/08/2025 12:30 AM [facility] Alkaline Phosphatase 54 39 - 117 U/L 02/08/2025 12:30 AM [facility] Total Bilirubin 0.3 0.0 - 1.2 mg/dL 02/08/2025 12:30 AM [facility] Globulin 2.6 gm/dL 02/08/2025 12:30 AM [facility] A/G Ratio 1.5 g/dL 02/08/2025 12:30 AM [facility] BUN/Creatinine Ratio 20.3 7.0 - 25.0 02/08/2025 12:30 AM [facility] Anion Gap 13.2 5.0 - 15.0 mmol/L 02/08/2025 12:30 AM EDT [facility] eGFR 58.3(L) >60.0 mL/min/1.7 3 02/08/2025 12:30 AM EDT [facility] Blood Venipuncture / Unknown 02/08/2025 12:05 AM EDT 02/08/2025 12:10 AM EDT Narrative [facility] - 02/08/2025 12:30 AM EDT GFR Categories in Chronic Kidney Disease (CKD) GFR Category GFR (mL/min/1.73) Interpretation G1 90 or greater Normal or high (1) G2 60-89 Mild decrease (1) G3a 45-59 Mild to moderate decrease G3b 30-44 Moderate to severe decrease G4 15-29 Severe decrease G5 14 or less Kidney failure (1)In the absence of evidence of kidney disease, neither GFR category G1 or G2 fulfill the criteria for CKD. eGFR calculation 2020 CKD-EPI creatinine equation, which does not include race as a factor us Gabbie Parada MD LAB BLOOD ORDERABLES Final R esult [facility]
[address] [facility] [address] [place] [address], documented in this encounter Visit Diagnoses Diagnosis Right upper quadrant abdominal pain- Primary documented in this encounter Administered Medications Inactive Administered Medications - up to 3 most recent administrations Medication Order MAR Action Action Date Dose Rate Site aluminum-magnesium hydroxide-simethicone (MAALOX MAX) 400-400-40 MG/5ML suspension 15 mL 15 mL, Oral, Once, On Sat02/08/25 at 0015, For 1 dose, Maximum 60 mL in 24 hours. Given 02/08/2025 12:16 AM EDT 15 mL diatrizoate meglumine-sodium (GASTROGRAFIN) 66-10 % oral solution Starting on Sat02/08/25 at 0114, For 1 dose, Created by cabinet override Given 02/08/2025 1:16 AM EDT 15 mL famotidine (PEPCID) injection 20 mg 20 mg, Intravenous, Once, On Sat02/08/25 at 0015, For 1 dose, Give IV push over 2 minutes. Given 02/08/2025 12:20 AM EDT 20 mg iopamidol (ISOVUE-370) 76 % injection 100 mL 100 mL, Intravenous, Once in Imaging, On Sat02/08/25 at 0230, For 1 dose Given 02/08/2025 2:10 AM EDT 75 mL ketorolac (TORADOL) injection 15 mg 15 mg, Intravenous, Once, On Sat02/08/25 at 0015, For 1 dose, Based on patient request - if ordered for moderate or severe pain, provider allows for administration of a medication prescribed for a lower pain scale. (BKC) If given for pain, use the following pain scale: Mild Pain = Pain Score of 1-3, CPOT 1-2 Moderate Pain = Pain Score of 4-6, CPOT 3-4 Severe Pain = Pain Score of 7-10, CPOT 5-8 Given 02/08/2025 12:20 AM EDT 15 mg lactated ringers bolus 1,000 mL 1,000 mL, Intravenous, at 4,000 mL/hr, Administer over 0.25 Hours, Once, On Sat02/08/25 at 0100, For 1 dose New Bag 02/08/2025 1:00 AM EDT 1,000 mL 4000 mL/hr ondansetron (ZOFRAN) injection 4 mg 4 mg, Intravenous, Once, On Sat02/08/25 at 0015, For 1 dose, If multiple N/V medications ordered, use in the following order: Ondansetron, Prochlorperazine, Promethazine. Use PO unless patient refuses or patient unable to swallow. Given 02/08/2025 12:20 AM EDT 4 mg Sodium Chloride (PF) 0.9 % 10 mL 10 mL, Intravenous, As Needed, Line Care, Starting on Sat02/07/25 at 2342 documented in this encounter Active and Recently Administered Medications Times are shown in EDT. Scheduled Medication Order 02/06/2025 02/07/2025 02/08/2025 aluminum-magnesium hydroxide-simethicone (MAALOX MAX) 400-400-40 MG/5ML suspension 15 mL (COMPLETED) 15 mL, Oral, Once, On Sat02/08/25 at 0015, For 1 dose, Maximum 60 mL in 24 hours. 0016 (Given - Provid er: Marni Johnson RN) famotidine (PEPCID) injection 20 mg (COMPLETED) 20 mg, Intravenous, Once, On Sat02/08/25 at 0015, For 1 dose, Give IV push over 2 minutes. 0020 (Given - Provid er: Marni Johnson RN) iopamidol (ISOVUE-370) 76 % injection 100 mL (COMPLETED) 100 mL, Intravenous, Once in Imaging, On Sat02/08/25 at 0230, For 1 dose 0210 (Given - Provid er: Ryan Osman) ketorolac (TORADOL) injection 15 mg (COMPLETED) 15 mg, Intravenous, Once, On Sat02/08/25 at 0015, For 1 dose, Based on patient request - if ordered for moderate or severe pain, provider allows for administration of a medication prescribed for a lower pain scale. (BKC) If given for pain, use the following pain scale: Mild Pain = Pain Score of 1-3, CPOT 1-2 Moderate Pain = Pain Score of 4-6, CPOT 3-4 Severe Pain = Pain Score of 7-10, CPOT 5-8 0020 (Given - Provid er: Marni Johnson RN) lactated ringers bolus 1,000 mL (COMPLETED) 1,000 mL, Intravenous, at 4,000 mL/hr, Administer over 0.25 Hours, Once, On Sat02/08/25 at 0100, For 1 dose 0100 (New Bag - Prov ider: Marni Johnson RN)0259 (Stopped - Provider: Mavis Wu RN) ondansetron (ZOFRAN) injection 4 mg (COMPLETED) 4 mg, Intravenous, Once, On Sat02/08/25 at 0015, For 1 dose, If multiple N/V medications ordered, use in the following order: Ondansetron, Prochlorperazine, Promethazine. Use PO unless patient refuses or patient unable to swallow. 0020 (Given - Provid er: Marni Johnson RN) PRN Medication Order 02/06/2025 02/07/2025 02/08/2025 Sodium Chloride (PF) 0.9 % 10 mL 10 mL, Intravenous, As Needed, Line Care, Starting on Sat02/07/25 at 2342 No Frequency Medication Order 02/06/2025 02/07/2025 02/08/2025 diatrizoate meglumine-sodium (GASTROGRAFIN) 66-10 % oral solution (COMPLETED) Starting on 02/08/25 at 0114, For 1 dose, Created by cabinet override 0116 (Given - Provid er: Denzel Jackson RN) documented in this encounter Care Teams Spacer Type Bar And Segment Relationship Specialty Start Date End Date Julianna Freed PA-C [address] [facility] [place] [address] PCP - General Physician Life Science Taxonomist 07/17/18 documented as of this encounter
--- OUTSIDE RECORDS SUMMARY | 2025-02-08 08:00 | XMS_ITS | Encounter Summary ---
Author Organization [facility] Address [address] [place] [address] Care Team Providers Care Electro Optical Engineer Name Role Phone Julianna Freed Primary Care Provider Encounter Details Date Type Department Care Team (Late st Contact Info) Description 02/08/2025 8:00 AM EDT Office Visit [facility] [address] [facility] [place] [address] Forest Liu [address] [facility] [address] [place] [address] Neck pain (Primary Dx); Right upper quadrant abdominal pain Social History Tobacco Use Types Packs/Day Years [...] encounter Miscellaneous Notes * Progress Notes - Forest Liu - 02/08/2025 8:00 AM EDT Acupuncture Visit Patient: Monae Pereira Date: 02/08/2025 No chief complaint on file. Outpatient Last Treatment How much did the last treatment help your symptoms?: Improvement after last visit., No ill effects. Pain Pain Scale Level: 5 Pain Frequency: Constant Pain Quality: Restricted ROM, Tingling, Numbness, Aching Tongue Tongue Color: [place] Tongue Shape: Scalloped Edges, Puffy Tongue Coat: Thin White Patient presents for follow-up with chief complaint of chronic neck pain, along with secondary complaint of right hypochondriac abdominal pain. Patient reports the neck continues to produce tingling and numbness radiating down the right arm and up toward the jaw and ear with rotation of the neck. Patient also states they were in the ER last night d/t excruciating pain in the right hypochondriac region of the abdomen. Patient reports CT wasn't able to find conclusive findings. Patient reports they continue under PCP and specialist provider managed care for all health concerns and requests to continue acupuncture at this time. Total needle insertion time: 30 minutes. Procedures: Ophiem Acupuncture Consent: Verbal consent Procedure Ophiem Size: 1 Inch Needle Points: Other, GB, LI, SJ, ST, LV Needle LI Points: [address]: 36 Bilateral, 40 Right Needle SJ: 5 Bilateral Needle GB: 20 Bilateral, 21 Bilateral, 41 Right Needle LV: 3 Bilateral, 8 Right Other Needle Points: Auricular (B): Stomach, Liver Plan Encounter Diagnoses Name Primary? Neck pain Yes Right upper quadrant abdominal pain 3-5 weeks Forest Liu documented in this encounter Plan of Treatment Upcoming Encounters Date Type Department Care Team (Late st Contact Info) Description 03/05/2025 2:45 PM EDT Office Visit [facility] [address] [place] [address] Janeen Vanegas [address] Snell [facility] [address] [place] [address] 03/11/2025 1:00 PM EDT Procedure Visit [facility] [address] [place] [address] Gladys Mccarthy, DO [address] [place] [address] 03/12/2025 8:30 AM EDT Office Visit [facility] [address] [place] [address] Janeen Vanegas [address] [facility] Jhoana Snell [facility] [address] [place] [address] 03/12/2025 10:30 AM EDT Office Visit [facility] [address] [place] [address] Lucrecia Morales [address] [facility] Jhoana Snell [facility] [address] [place] [address] 03/31/2025 10:00 AM EDT Office Visit [facility] [address] [place] [address] 04/02/2025 9:20 AM EDT Office Visit [facility] Interventional Pain Medicine [address] [place] [phone] Ermias Taylor MD [address] [facility] [address] [place] [phone] 04/08/2025 3:40 PM EDT Procedure Visit [facility] [address] [place] [address] Gladys Mccarthy, DO [address] [place] [phone] 04/13/2025 3:50 PM EDT Office Visit [facility] [address] [place] [phone] Carlton Gaines, DO [address] [place] [phone] 05/06/2025 3:40 PM EDT Procedure Visit [facility] [address] [place] [phone] Gladys Mccarthy, DO [address] [place] [address] 06/03/2025 3:40 PM EST Procedure Visit [facility] [address] [place] [address] Gladys Mccarthy, DO [address] [place] [address] 09/07/2025 7:30 AM EST Ovarian Cancer Screening [facility]ne[facility] [address] [facility] [place] [address] documented as of this encounter Visit Diagnoses Diagnosis Neck pain- Primary Cervicalgia Right upper quadrant abdominal pain documented in this encounter Additional Health Concerns Assessment Noted Time PHQ-9 Depression Total Score: 0 09/30/19 3:29 PM EDT A fall risk assessment has been complete d for the patient 12/17/2024 3:28 PM EDT A Body Mass Index follow-up plan has been documented for the patient 02/08/2025 8:41 AM EDT documented as of this encounter Care Teams Electro Optical Engineer Relationship Specialty Start Date End Date Julianna Freed PA [address] [place] [address] PCP - General 11/25/20 documented as of this encounter
--- OUTSIDE RECORDS SUMMARY | 2025-02-09 08:30 | XMS_ITS | Encounter Summary ---
[facility] Address [address] [place] [address] Care Team Providers Care Plater Apprentice Name Role Phone Julianna Freed PA-C Primary Care Provide r Reason for Visit * Reason Comments Treatment * Physical Therapy (Routine) - Authorized Specialty Diagnoses / Procedures Referred By Mukesh collins Referred To Contact Physical Therapy Diagnoses Cervical radiculopathy 2024 BENEFITS ANTHEM COINS:20% NO AUTH REQ 90VL/YR (COMBINED) REM DED:$1,500 REM OOP:$3,000 Cervical radiculopathy Procedures ORTHO TREATMENT Julianna Freed PA-C [address] [place] [id number] Phone: tel: fax: [facility] [address] [place] [address] [address] [place] [address] Phone: tel: fax: Referral ID Status Reason Start Date Expiration Date V isits Requested Visits Authorized [id number] Authorized 07/24/2024 07/24/2025 90 90 Encounter Details Date Type Department Care Team (Late st Contact Info) Description 02/09/2025 8:30 AM EDT Treatment [facility] [address] [place] [address] [address] [place] [id number] Sagar Soto, PT [address] [facility] [address] [place] [address] Pain, neck (Primary Dx); Radiculopathy, cervical Social [...] Progress Notes * Sagar Soto, PT - 02/09/2025 8:30 AM EDT Physical Therapy Daily Treatment Note Lance PT [address] [facility] [address] [place] [address] Patient: Jacquiecherelle Benson Pereira : 1970 Referring practitioner: Julianna Freed, * Date of Initial Visit: Type: THERAPY Noted: 11/29/2022 Today's Date: 02/09/2025 Patient seen for 65 sessions Certification Period 02/09/2025 thru 05/10/2025 Visit Diagnoses: ICD-10-CM ICD-9-CM 1. Pain, neck M54.2 723.1 2. Radiculopathy, cervical M54.12 723.4 Subjective Patient states that she feels like she has had some decrease in her neck pain recently and she is also noted having a decrease in symptoms into the right upper extremity as well. She reports having consistent relief after therapy sessions. Objective See Exercise, Manual, and Modality Logs for complete treatment. Assessment/Plan Patient continues to present with hypertonicity in the right cervical paraspinals and decreased lower cervical segmental mobility. Patient demonstrated an improvement in cervical active range of motion in all planes post manual therapy. Monae Pereira will continue to benefit from skilled physical therapy services to address deficits and continue to work towards reaching functional goals. Timed: Manual Therapy: 34 mins 19767; Therapeutic Exercise: mins 28456; Neuromuscular Janessa: mins 07201; Therapeutic Activity: mins 58291; Gait Training: mins 87312; Ultrasound: mins 78589; Ionto mins 49689 Self Care mins 76563 Canalith Repos mins 74190 Electrical Stimulation: mins 21823 Un-Timed: Electrical Stimulation: mins 02011 ( [id number]); Dry Needling mins self-pay Traction mins 36083 Timed Treatment: 34 mins Total Treatment: 34 mins Sagar Soto PT, DPT, Cert. DN [place] License: [id number] documented in this encounter Plan of Treatment Upcoming Encounters Date Type Department Care Team (Late st Contact Info) Description 03/03/2025 8:00 AM EDT Treatment [facility] [address] [place] [address] [address] [place] [address] Sagar Soto, PT [address] [facility] [address] [place] [address] 03/10/2025 4:00 PM EDT Treatment [facility] [address] [place] [address] [address] [place] [address] Sagar Soto PT [address] [facility] [address] [place] [address] 03/29/2025 3:00 PM EDT Office Visit [facility] [address] [place] [address] Julianna Freed PA-C [address] [place] [address] 03/31/2025 1:00 PM EDT Appointment [facility] [address] [facility] [place] [address] 04/05/2025 1:00 PM EDT Outside Facility Service [facility] [address] [phone] Daljit Wilson MD [address] [address] documented as of this encounter Visit Diagnoses Diagnosis Pain, neck- Primary Radiculopathy, cervical Brachial neuritis or radiculitis nos documented in this encounter Care Teams Plater Apprentice Relationship Specialty Start Date End Date Julianna Freed PA-C [address] [place] [address] PCP - General Physician Currency Machine Operator 07/17/18 documented as of this encounter
--- OUTSIDE RECORDS SUMMARY | 2025-02-10 08:00 | XMS_ITS | Encounter Summary ---
Author Organization [facility] Address [address] [place] [address] Care Team Providers Care Glazier Supervisor Name Role Phone Julianna Freed PA-C Primary Care Provide r Reason for Referral * MRI/CAT/PET Scan (Routine) - Pending Review Specialty Diagnoses / Procedures Referred By Contac t Referred To Contact Radiology Diagnoses RUQ pain Nausea Procedures NM HIDA Scan With Pharmacological Intervention Julianna Freed PA-C [address] [place] [address] Phone: tel: fax: [facility] [address] [place] [address] Phone: tel: Referral ID Status Reason Start Date Expiration Date V isits Requested Visits Authorized [id number] Pending Review 02/10/2025 05/12/2026 1 1 * Diagnostic Medical (Routine) - Pending Review Specialty Diagnoses / Procedures Referred By Contact Referred To Contact Gastroenterology Diagnoses Gastroesophageal reflux disease without esophagitis Bloating Nausea Epigastric pain Julianna Freed PA-C [address] [place] [address] Phone: tel: fax: [facility] [address] [place] [address] Phone: tel: fax: Referral ID Status Reason Start Date Expiration Date Visits Requested Visits Authorized Pending Review Specialty Services Required 02/10/2025 05/12/2026 1 1 * Consultation (Urgent) - Pending Review Specialty Diagnoses / Procedures Referred By Mukesh barillas Referred To Contact Gastroenterology Diagnoses Gastroesophageal reflux disease without esophagitis RUQ pain Bloating Nausea Diarrhea, unspecified type Epigastric pain Abdominal pain, RLQ Procedures NE OFFICE/OUTPATIENT NEW MODERATE MDM 45 MINUTES Julianna Freed PA-C [address] [place] [address] Phone: tel: fax: Malcolm Gray MD [facility] [place] [address] Phone: tel: fax: Referral ID Status Reason Start Date Expiration Date Visits Requested Visits Authorized Pending Review Specialty Services Required 02/10/2025 05/12/2026 1 1 Reason for Visit * Reason Comments Annual Exam Encounter Details Date Type Department Care Team (Late st Contact Info) Description 02/10/2025 8:00 AM EDT Office Visit [facility] [address] [facility] [place] [phone] Julianna Freed PA-C [address] [place] [address] Physical exam, annual (Primary Dx); Anxiety; Essential hypertension; Leg swelling; Hepatic steatosis; RUQ pain; Epigastric pain; Abdominal pain, RLQ; Gastroesophageal reflux disease without esophagitis; Bloating; Nausea; Diarrhea, unspecified type Social History Tobacco Use [...] Sign Reading Time Taken Comments Blood Pressure 128/72 02/10/2025 7:59 AM EDT Pulse 88 02/10/2025 7:59 AM EDT Temperature - - Respiratory Rate - - Oxygen Saturation 96% 02/10/2025 7:59 AM EDT Inhaled Oxygen Concentration - - Weight 87.5 kg (193 lb) 02/10/2025 7:59 AM EDT Height 152.4 cm (5') 02/10/2025 7:59 AM EDT Body Mass Index 37.69 02/10/2025 7:59 AM EDT documented in this encounter Patient Instructions * Patient Instructions* Julianna Freed PA-C - 02/10/2025 8:00 AM EDT Images from the original note were not included. Hypertension --Monitor blood pressure at least an hour after taking blood pressure medication. --Use a blood pressure machine that has a bicep (arm) cuff, no wrist cuffs as they are not as accurate. OMRON is a reliable brand that can be purchased at most stores and online. --Call office if you have continual blood pressure readings that are greater than 140/90. --Keep a blood pressure log and bring it to your next appointment. Bring your blood pressure machine to the office as well to compare with the readings we find and ensure it is accurate. Hypertension is another name for high blood pressure. High blood pressure forces your heart to workharder to pump blood. This can cause problems over time. There are two numbers in a blood pressure reading. There is a top number (systolic) over a bottom number (diastolic). It is best to have a blood pressure that is below 120/80. Healthy choices can help lower your blood pressure, or you may need medicine to help lower it. What are the causes? The cause of this condition is not known. Some conditions may be related to high blood pressure. What increases the risk? Smoking. Having type 2 diabetes mellitus, high cholesterol, or both. Not getting enough exercise or physical activity. Being overweight. Having too much fat, sugar, calories, or salt (sodium) in your diet. Drinking too much alcohol. Having long-term (chronic) kidney disease. Having a family history of high blood pressure. Age. Risk increases with age. Race. You may be at higher risk if you are . Gender. Men are at higher risk than women before age 45. After age 65, women are at higher risk than men. Having obstructive sleep apnea. Stress. What are the signs or symptoms? High blood pressure may not cause symptoms. Very high blood pressure (hypertensive crisis) may cause: Headache. Feelings of worry or nervousness (anxiety). Shortness of breath. Nosebleed. A feeling of being sick to your stomach (nausea). Throwing up (vomiting). Changes in how you see. Very bad chest pain. Seizures. How is this treated? This condition is treated by making healthy lifestyle changes, such as: Eating healthy foods. Exercising more. Drinking less alcohol. Your health care provider may prescribe medicine if lifestyle changes are not enough to get your blood pressure under control, and if: Your top number is above 130. Your bottom number is above 80. Your personal target blood pressure may vary. Follow these instructions at home: Eating and drinking If told, follow the DASH eating plan. To follow this plan: Fill one half of your plate at each meal with fruits and vegetables. Fill one fourth of your plate at each meal with whole grains. Whole grains include whole-wheat pasta, brown rice, and whole-grain bread. Eat or drink low-fat dairy products, such as skim milk or low-fat yogurt. Fill one fourth of your plate at each meal with low-fat (lean) proteins. Low-fat proteins include fish, chicken without skin, eggs, beans, and tofu. Avoid fatty meat, cured and processed meat, or chicken with skin. Avoid pre-made or processed food. Eat less than 1,500 mg of salt each day. Do not drink alcohol if: Your doctor tells you not to drink. You are , may be , or are planning to become . If you drink alcohol: Limit how much you use to: 0-1 drink a day for women. 0-2 drinks a day for men. Be aware of how much alcohol is in your drink. In the [place] one drink equals one 12 oz bottle of beer (355 mL), one 5 oz glass of wine (148 mL), or one 1?? oz glass of hard liquor (44 mL). Lifestyle Work with your doctor to stay at a healthy weight or to lose weight. Ask your doctor what the best weight is for you. Get at least 30 minutes of exercise most days of the week. This may include walking, swimming, or biking. Get at least 30 minutes of exercise that strengthens your muscles (resistance exercise) at least 3 days a week. This may include lifting weights or doing Pilates. Do not use any products that contain nicotine or tobacco, such as cigarettes, e- cigarettes, and chewing tobacco. If you need help quitting, ask your doctor. Check your blood pressure at home as told by your doctor. Keep all follow-up visits as told by your doctor. This is important. Medicines Take [id number] and prescription medicines only as told by your doctor. Follow directions carefully. Do not skip doses of blood pressure medicine. The medicine does not work as well if you skip doses.Skipping doses also puts you at risk for problems. Ask your doctor about side effects or reactions to medicines that you should watch for. Contact a doctor if you: Think you are having a reaction to the medicine you are taking. Have headaches that keep coming back (recurring). Feel dizzy. Have swelling in your ankles. Have trouble with your vision. Get help right away if you: Get a very bad headache. Start to feel mixed up (confused). Feel weak or numb. Feel faint. Have very bad pain in your: Chest. Belly (abdomen). Throw up more than once. Have trouble breathing. Summary Hypertension is another name for high blood pressure. High blood pressure forces your heart to work harder to pump blood. For most people, a normal blood pressure is less than 120/80. Making healthy choices can help lower blood pressure. If your blood pressure does not get lower with healthy choices, you may need to take medicine. This information is not intended to replace advice given to you by your health care provider. Make sure you discuss any questions you have with your health care provider. Document Revised: 03/11/2019 Document Reviewed: 03/11/2019 [employer] Patient Education ?? 2020 [employer] documented in this encounter Progress Notes * Julianna Freed PA-C - 02/10/2025 8:00 AM EDT Chief Complaint Patient presents with Annual Exam Monae Pereria is a pleasant 54 y.o. female who is here for annual physical exam. Patient has ongoing gastrointestinal issues including bloating, nausea, diarrhea/loose stool, rightupper quadrant, right lower quadrant and epigastric discomfort. These symptoms have been ongoing for years and have recently worsened. She was evaluated in 2019 with no concerning findings. She recently stopped her GLP-1 incase this was contributing to her symptoms but she hasn't gotten any relief with discontinuation of medicine. She is unable to eat much due to the bloating and discomfort. She was seen at [facility] on 02/[address] abdo/pelvis with IV contrast and labs completed. Imaging and labs were reassuring. Mild elevation in her ALT and AST with known hepatic steatosis. She had RUQ US with no concerning findings. She recently had colonoscopy and everything was reassuring. No recent EGD or HIDA scan. Has been referred to GI and has appointment with [facility] provider on 03/25. She prefers to see Dr. Malcolm Gray and he can work her in on 03/09. A new referral has been placed for Dr. Gray. She will call and cancel with the [facility] provider. She also reports swelling in her legs. She is on amlodipine 5 mg and takes this at night. Her bloodpressure is stable and well-controlled today. Her is present at appointment. Past Medical History: Diagnosis Date Anemia Cervical disc disorder June 2011 Had cervical disc replacement and fusion Aug 08, 2011 Chronic pain disorder 2001 Was diagnosed with psoriatic arthritis in 2004 or 2005. Degenerative arthritis of cervical spine Degenerative arthritis [...] right foot REDUCTION MAMMAPLASTY Bilateral 2007 [facility] SPINAL FUSION August 08, 2011 Cervical [...] ROS Review of Systems Constitutional: Negative for chills, diaphoresis, fatigue and fever. HENT: Negative for congestion, ear pain, hearing loss, postnasal drip, rhinorrhea and sore throat. Eyes: Negative for blurred vision and pain. Respiratory: Negative for cough, shortness of breath and wheezing. Cardiovascular: Positive for leg swelling. Negative for chest pain. Gastrointestinal: Positive for abdominal distention, abdominal pain, diarrhea and nausea. Negative for blood in stool, constipation, vomiting and indigestion. Endocrine: Negative for polyuria. Genitourinary: Negative for dysuria, flank pain and hematuria. Musculoskeletal: Negative for arthralgias, gait problem and myalgias. Skin: Negative for rash and skin lesions. Neurological: Negative for dizziness and headache. Psychiatric/Behavioral: Negative for self-injury, sleep disturbance, suicidal ideas, depressed moodand stress. The patient is not nervous/anxious. Vitals: 02/10/25 0759 BP: 128/72 BP Location: Right arm Patient Position: Sitting Cuff Size: Adult Pulse: 88 SpO2: 96% Weight: 87.5 kg (193 lb) Height: 152.4 cm (60 ) Body mass index is 37.69 kg/m??. Current Outpatient Medications on File Prior to Visit Medication Sig Dispense Refill desonide (DESOWEN) 0.05 % ointment Apply to the axilla BID x2 weeks, then take two week break fexofenadine (JUSTO) 180 MG tablet Take 1 tablet by mouth Daily. 90 tablet 0 Humira, 2 Pen, 40 MG/0.4ML Auto-injector Kit [...] tablet 0 montelukast (SINGULAIR) 10 MG tablet Take 1 tablet by mouth every night at bedtime. 90 tablet 3 nabumetone (RELAFEN) 750 MG tablet 1 tablet Daily. ondansetron (Zofran) 4 MG tablet Take 1 tablet by mouth Every 8 (Eight) Hours As Needed for Nausea or Vomiting. 30 tablet 1 Probiotic Product (PROBIOTIC-10 ULTIMATE PO) rosuvastatin (CRESTOR) 10 MG tablet Take 1 tablet by mouth Daily. 90 tablet 3 simethicone (MYLICON) 80 MG chewable tablet Chew 1 tablet Every 6 (Six) Hours As Needed for Flatulence. 90 tablet 1 tretinoin (RETIN-A) 0.025 % cream APPLY A PEA SIZED AMOUNT TO THE AFFECTED AREA(S) BY TOPICAL ROUTEONCE DAILY AT BEDTIME [DISCONTINUED] amLODIPine (NORVASC) 5 MG tablet Take 1 tablet by mouth Daily. 90 tablet 3 [DISCONTINUED] FLUoxetine (PROzac) 20 MG capsule Take 1 capsule by mouth Daily. 90 capsule 3 [DISCONTINUED] pantoprazole (Protonix) 20 MG EC tablet Take 1 tablet by mouth Daily. 30 tablet 5 No current facility-administered medications on file prior to visit. Results for orders placed or performed during the hospital encounter of 02/07/25 Comprehensive Metabolic Panel Collection Time: 02/08/25 12:05 AM Specimen: Blood Result Value Ref Range Glucose 118 (H) 65 - 99 mg/dL BUN 22.9 (H) 6.0 - 20.0 mg/dL Creatinine 1.13 (H) 0.57 - 1.00 mg/dL Sodium 138 136 - 145 mmol/L Potassium 3.7 3.5 - 5.2 mmol/L Chloride 103 98 - 107 mmol/L CO2 21.8 (L) 22.0 - 29.0 mmol/L Calcium 9.2 8.6 - 10.5 mg/dL Total Protein 6.4 6.0 - 8.5 g/dL Albumin 3.8 3.5 - 5.2 g/dL ALT (SGPT) 44 (H) 1 - 33 U/L AST (SGOT) 37 (H) 1 - 32 U/L Alkaline Phosphatase 54 39 - 117 U/L Total Bilirubin 0.3 0.0 - 1.2 mg/dL Globulin 2.6 gm/dL A/G Ratio 1.5 g/dL BUN/Creatinine Ratio 20.3 7.0 - 25.0 Anion Gap 13.2 5.0 - 15.0 mmol/L eGFR 58.3 (L) >60.0 mL/min/1.73 Lipase Collection Time: 02/08/25 12:05 AM Specimen: Blood Result Value Ref Range Lipase 38 13 - 60 U/L hCG, Quantitative, Collection Time: 02/08/25 12:05 AM Specimen: Blood Result Value Ref Range HCG Quantitative 1.68 mIU/mL CBC Auto Differential Collection Time: 02/08/25 12:05 AM Specimen: Blood Result Value Ref Range WBC 7.89 3.40 - 10.80 10*3/mm3 RBC 3.71 (L) 3.77 - 5.28 10*6/mm3 Hemoglobin 10.8 (L) 12.0 - 15.9 g/dL Hematocrit 33.3 (L) 34.0 - 46.6 % MCV 89.8 79.0 - 97.0 fL MCH 29.1 26.6 - 33.0 pg MCHC 32.4 31.5 - 35.7 g/dL RDW 12.9 12.3 - 15.4 % RDW-SD 42.4 37.0 - 54.0 fl MPV 9.8 6.0 - 12.0 fL Platelets 258 140 - 450 10*3/mm3 Neutrophil % 60.8 42.7 - 76.0 % Lymphocyte % 23.4 19.6 - 45.3 % Monocyte % 12.2 (H) 5.0 - 12.0 % Eosinophil % 2.8 0.3 - 6.2 % Basophil % 0.4 0.0 - 1.5 % Immature Grans % 0.4 0.0 - 0.5 % Neutrophils, Absolute 4.80 1.70 - 7.00 10*3/mm3 Lymphocytes, Absolute 1.85 0.70 - 3.10 10*3/mm3 Monocytes, Absolute 0.96 (H) 0.10 - 0.90 10*3/mm3 Eosinophils, Absolute 0.22 0.00 - 0.40 10*3/mm3 Basophils, Absolute 0.03 0.00 - 0.20 10*3/mm3 Immature Grans, Absolute 0.03 0.00 - 0.05 10*3/mm3 High Sensitivity Troponin T Collection Time: 02/08/25 12:05 AM Specimen: Blood Result Value Ref Range HS Troponin T 7 <14 ng/L Green Top (Gel) Collection Time: 02/08/25 12:05 AM Result Value Ref Range Extra Tube Hold for add-ons. Lavender Top Collection Time: 02/08/25 12:05 AM Result Value Ref Range Extra Tube hold for add-on Gold Top - SST Collection Time: 02/08/25 12:05 AM Result Value Ref Range Extra Tube Hold for add-ons. Faye Top Collection Time: 02/08/25 12:05 AM Result Value Ref Range Extra Tube Hold for add-ons. Light Blue Top Collection Time: 02/08/25 12:05 AM Result Value Ref Range Extra Tube Hold for add-ons. ECG 12 Lead Chest Pain Collection Time: 02/08/25 12:09 AM Result Value Ref Range QT Interval 404 ms QTC Interval 480 ms Urinalysis With Microscopic If Indicated (No Culture) - Urine, Clean Catch Collection Time: 02/08/25 1:48 AM Specimen: Urine, Clean Catch Result Value Ref Range Color, UA Yellow Yellow, Straw Appearance, UA Clear Clear pH, UA 6.0 5.0 - 8.0 Specific [place], UA 1.010 1.005 - 1.030 Glucose, UA Negative Negative Ketones, UA Negative Negative Bilirubin, UA Negative Negative Blood, UA Small (1+) (A) Negative Protein, UA Negative Negative Leuk Esterase, UA Trace (A) Negative Nitrite, UA Negative Negative Urobilinogen, UA 0.2 E.U./dL 0.2 - 1.0 E.U./dL Urinalysis, Microscopic Only - Urine, Clean Catch Collection Time: 02/08/25 1:48 AM Specimen: Urine, Clean Catch Result Value Ref Range RBC, UA 0-2 None Seen, 0-2 /HPF WBC, UA 3-5 (A) None Seen, 0-2 /HPF Bacteria, UA Trace (A) None Seen /HPF Squamous Epithelial Cells, UA 3-6 (A) None Seen, 0-2 /HPF Hyaline Casts, UA 0-2 None Seen /LPF Methodology Manual Light Microscopy PE Physical Exam Vitals reviewed. Constitutional: General: She is not in acute distress. Appearance: Normal appearance. She is well-developed and overweight. She is not ill-appearing or diaphoretic. HENT: Head: Normocephalic and atraumatic. Right Ear: Hearing, tympanic membrane, ear canal and external ear normal. Left Ear: Hearing, tympanic membrane, ear canal and external ear normal. Nose: Nose normal. Right Sinus: No maxillary sinus tenderness or frontal sinus tenderness. Left Sinus: No maxillary sinus tenderness or frontal sinus tenderness. Mouth/Throat: Pharynx: Uvula midline. Eyes: General: Lids are normal. Extraocular Movements: Extraocular movements intact. Conjunctiva/sclera: Conjunctivae normal. Neck: Thyroid: No thyroid mass or thyromegaly. Trachea: Trachea and phonation normal. Cardiovascular: Rate and Rhythm: Normal rate and regular rhythm. Heart sounds: Normal heart sounds. Pulmonary: Effort: Pulmonary effort is normal. Breath sounds: Normal breath sounds. Abdominal: General: Abdomen is protuberant. Bowel sounds are normal. There is distension. Palpations: Abdomen is soft. Abdomen is not rigid. There is no fluid wave or mass. Tenderness: There is abdominal tenderness in the right upper quadrant and right lower quadrant. There is no guarding or rebound. Musculoskeletal: General: Normal range of motion. Cervical back: Normal range of motion. Right lower leg: No edema. Left lower leg: No edema. Lymphadenopathy: Cervical: No cervical adenopathy. Right cervical: No superficial cervical adenopathy. Left cervical: No superficial cervical adenopathy. Skin: General: Skin is warm. Findings: No erythema or rash. Nails: There is no clubbing. Neurological: Mental Status: She is alert and oriented to person, place, and time. Coordination: Coordination normal. Gait: Gait normal. Deep Tendon Reflexes: Reflexes are normal and symmetric. Comments: CN grossly intact Psychiatric: Attention and Perception: She is attentive. Mood and Affect: Mood normal. Speech: Speech normal. Behavior: Behavior normal. Behavior is cooperative. Thought Content: Thought content normal. Judgment: Judgment normal. A/P Diagnoses and all orders for this visit: 1. Physical exam, annual (Primary) PE completed Preventative labs ordered Colonoscopy is up-to-date Mammogram is up-to-date Respiratory Care Instructor - established Dentist - encouraged to go regularly Operating Room Coordinator - encouraged to go regularly Vaccinations discussed 2. Anxiety - FLUoxetine (PROzac) 20 MG capsule; Take 1 capsule by mouth Daily. Dispense: 90 capsule; Refill: 3 - FLUoxetine (PROzac) 10 MG capsule; Take 1 capsule by mouth Daily. Dispense: 90 capsule; Refill: 3 Trial increase in Prozac from 20 mg to 30 mg daily. 3. Essential hypertension Stable, well-controlled. Compliant on medication. Will hold amlodipine 5 mg given leg swelling. Patient will monitor BP at home and call if greater than 140/90. 4. Leg swelling - furosemide (Lasix) 40 MG tablet; Take 1 tablet by mouth Daily for 3 days. Dispense: 3 tablet; Refill: 0 Hold amlodipine. Take lasix 40 mg x3 days. Recommend elevating legs and wearing compression hose. 5. Hepatic steatosis - JOHNSON Fibrosure; Future 6. RUQ pain - Ambulatory Referral to Gastroenterology - NM HIDA Scan With Pharmacological Intervention; Future 7. Epigastric pain - Ambulatory Referral to Gastroenterology - Ambulatory referral for Screening EGD - pantoprazole (Protonix) 40 MG EC tablet; Take 1 tablet by mouth Daily. Dispense: 90 tablet; Refill: 1 8. Abdominal pain, RLQ - Ambulatory Referral to Gastroenterology 9. Gastroesophageal reflux disease without esophagitis - Ambulatory Referral to Gastroenterology - Ambulatory referral for Screening EGD 10. Bloating - Ambulatory Referral to Gastroenterology - Ambulatory referral for Screening EGD 11. Nausea - Ambulatory Referral to Gastroenterology - Ambulatory referral for Screening EGD - NM HIDA Scan With Pharmacological Intervention; Future 12. Diarrhea, unspecified type - Ambulatory Referral to Gastroenterology -Reviewed recent ED note with labs and CT abdo/pelvis with IV contrast. Overall no concerning findings. -Known hepatic steatosis with recent elevation in ALT and AST. Will order JOHNSON fibrosure. -completed US RUQ with no concerning findings. -stopped GLP-1 for several weeks with no improvement. -will order EGD given epigastric pain, bloating, nausea and reflux -continue on protonix. Trial 40 mg in the morning. -will order HIDA scan given ongoing RUQ pain and discomfort -referral placed to Dr. Malcolm Gray per patient request -follow-up in 6 weeks -advised to go to ER if symptoms worsen or change Plan of care reviewed with patient at the conclusion of today's visit. Education was provided regarding nutrition , exercise, supplements, preventative screenings, and vaccinations diagnosis, management and any prescribed or recommended OTC medications. Patient verbalizes understanding of and agreement with management plan. Part of this note may be an electronic starch mangle tender/translation of spoken language to printed textusing the [employer]ation System. Return in about 7 weeks (around 03/29/2025) for Recheck, RUQ pain. Julianna Freed PA-C documented in this encounter Plan of Treatment Upcoming Encounters Date Type Department Care Team (Late st Contact Info) Description 03/03/2025 8:00 AM EDT Treatment [facility] [address] [place] [address] [address] [place] [phone] Sagar Soto, PT [address] [facility] [address] [place], [place] [id number] 03/10/2025 4:00 PM EDT Treatment [facility] [address] [place] [address] [address] [place] [phone] Sagar Soto, PT [address] [facility] [address] [place] [address] 03/29/2025 3:00 PM EDT Office Visit [facility] [address] [place] [phone] Julianna Freed PA-C [address] [place] [address] 03/31/2025 1:00 PM EDT Appointment [facility] [address] [place] [phone] 04/05/2025 1:00 PM EDT Outside Facility Service [facility] [address] [phone] Daljit Wilson MD [address] [address] Scheduled Orders Name Type Priority Associated Diagnoses Orde r Schedule NM HIDA Scan With Pharmacological Intervention Imaging Routine RUQ pain Nausea Expected: 02/13/2025, Expires: 05/13/2026 Scheduled Referrals Name Type Priority Associated Diagnoses Order Schedule Ambulatory referral for Screening EGD Outpatient Referral Routine Gastroesophageal reflux disease without esophagitis Bloating Nausea Epigastric pain Ordered: 02/10/2025 documented as of this encounter Results * (ABNORMAL) JOHNSON Fibrosure (02/10/2025 8:56 AM EDT) Fibrosis Score 0.09 0.00 - 0.21 02/13/2025 4:07 AM EDT [facility] Fibrosis Stage Comment 02/13/2025 4:07 AM EDT [facility] Comment:F0 - No fibrosis Steatosis Score (Reference) 0.31 0.00 - 0.40 02/13/2025 4:07 AM EDT [facility] Steatosis Grade (Reference) Comment 02/13/2025 4:07 AM EDT [facility] Comment:S0 - No Steatosis (< 5%) JOHNSON Score (Reference) 0.00 0.00 - 0.25 02/13/2025 4:07 AM EDT [facility] Johnson Grade (Reference) Comment 02/13/2025 4:07 AM EDT [facility] Comment:N0 - No JOHNSON Methodology: Comment 02/13/2025 4:07 AM EDT [facility] Comment: The analytes tested are performed by FibroSure-Specific methods. Not intended for use with other diagnostic considerations. Alpha 2-Macroglobulins, Qn 287(H) 110 - 276 mg/dL 02/13/2025 4:07 AM EDT [facility] Haptoglobin 153 33 - 346 mg/dL 02/13/2025 4:07 AM EDT [facility] Apolipoprotein A-1 216(H) 116 - 209 mg/dL 02/13/2025 4:07 AM EDT [facility] Total Bilirubin 0.2 0.0 - 1.2 mg/dL 02/13/2025 4:07 AM EDT [facility] GGT 32 0 - 60 IU/L 02/13/2025 4:07 AM EDT [facility] ALT (SGPT) 70(H) 0 - 40 IU/L 02/13/2025 4:07 AM EDT [facility] AST (SGOT) P5P (Reference) 64(H) 0 - 40 IU/L 02/13/2025 4:07 AM EDT [facility] Cholesterol, Total (Reference) 176 100 - 199 mg/dL 02/13/2025 4:07 AM EDT [facility] Glucose, Serum (Reference) 102(H) 70 - 99 mg/dL 02/13/2025 4:07 AM EDT [facility] Triglycerides 100 0 - 149 mg/dL 02/13/2025 4:07 AM EDT [facility] Interpretations: (Reference) Comment 02/13/2025 4:07 AM EDT [facility] Comment: Quantitative results of 10 biochemicals in combination with age and gender, are analyzed using a computational algorithm to provide a quantitative surrogate marker (0.0-1.0) of liver fibrosis (Metavir F0-F4), hepatic steatosis (0.0-1.0, S0-S3), and Non-Alcoholic Steato-Hepatitis (JOHNSON) (0.0-1.0, N0-N3), now known as Metabolic Dysfunction-Associated Steatohepatitis (MASH). The absence of steatosis (S<0.40) precludes the diagnosis of JOHNSON/MASH. Fibrosis marker: In a study of 171 Non-Alcoholic Fatty Liver Disease (NAFLD), now known as Metabolic Dysfunction-Associated Steatotic Liver Disease (MASLD), patients where 23% had significant NAFLD/MASLD fibrosis (Metavir F2-F4) and 11% had cirrhosis by liver biopsy, a fibrosis result of >0.3 yielded a sensitivity of 83% and a specificity of 78% for the detection of significant fibrosis.[1] Steatosis marker: In a population of 2997 patients, where 61% had significant steatosis (>=5%) on a liver biopsy, a steatosis score >0.4 had a sensitivity of 79% and a specificity of 50% for identification of significant steatosis.[2] JOHNSON/MASH marker: In a population of 1081 NAFLD/MASLD patients, where 51% had at least some JOHNSON/MASH by liver biopsy, a prediction of JOHNSON/MASH had a sensitivity of 72% for identifying JOHNSON/MASH and a specificity of 71%.[3] Fibrosis Scoring: Comment 4:07 AM EDT [facility] Comment: <=0.21 = Stage F0 - No fibrosis 0.21 - 0.27 = Stage F0 - F1 0.27 - 0.31 = Stage F1 - Portal fibrosis 0.31 - 0.48 = Stage F1 - F2 0.48 - 0.58 = Stage F2 - Bridging fibrosis with few septa 0.58 - 0.72 = Stage F3 - Bridging fibrosis with many septa 0.72 - 0.74 = Stage F3 - F4 >0.74 = Stage F4 - Cirrhosis Steatosis Scoring Comment 025 4:07 AM EDT [facility] Comment: <=0.40 = S0 - No Steatosis (<5%) 0.40 - 0.55 = S1 - Mild Steatosis (but Clinically Significant) (5-33%) >0.55 = S2S3- Moderate to Severe Steatosis (Clinically Significant) (34-100%) JOHNSON Scoring Comment 02/13/2025 4:07 AM EDT [facility] Comment: <=0.25 = N0 - No JOHNSON/MASH 0.25 - 0.50 = N1 - Mild JOHNSON/MASH 0.50 - 0.75 = N2 - Moderate JOHNSON/MASH >0.75 = N3 - Severe JOHNSON/MASH Limitations: Comment 02/13/2025 4:07 AM EDT [facility] Comment: JOHNSON FibroSure(R) Plus is recommended for patients with suspected non-alcoholic fatty liver disease, now known as Metabolic Dysfunction-Associated Steatotic Liver Disease or MASLD. It is not recommended for patients with other liver diseases. It is also not recommended in patients with Gilbert Disease, acute hemolysis, acute viral hepatitis, drug induced hepatitis, genetic liver disease, autoimmune hepatitis and/or extra-hepatic cholestasis. Any of these clinical situations may lead to inaccurate quantitative predictions of fibrosis. Comment Comment 02/13/2025 4:07 AM EDT [facility] Comment: This test was developed and its performance characteristics determined by [facility]. It has not been cleared or approved by the Food and Drug Administration. For questions regarding this report please contact customer service at . References: 1. Mai Jimenez et al. Diagnostic Value of Biochemical Markers (FibroTest) for the prediction of Liver Fibrosis in patients with Non-Alcoholic Fatty Liver Disease. BMC Gastroenterology 2006; 6:6. 2. Doyle Barillas. et al. The Diagnostic Performance of a Simplified Blood Test (SteatoTest-2) for the Prediction of Liver Steatosis. Eur J Gastroenterol Hepatol. 2019; 31:393-402. 3. Doyle Ospina al. Diagnostic performance of a new noninvasive test for nonalcoholic steatohepatitis using a simplified histological reference. Eur J Gastroenterol Hepatol. 2018 May; 30:569-577. Blood Venipuncture / Unknown 02/10/2025 8:56 AM EDT 02/10/2025 8:56 AM EDT Narrative [facility] - 02/13/2025 4:07 AM EDT Performed at: 01 - [facility] [address] [id number] Crop Grain Or Livestock Farmer: Emely Contreras MD, Phone: [phone] us Julianna Freed PA-C LAB BLOOD ORDERABLES Final Result Performing Organization Address City/State/[facility] Co de Phone Number [facility] [address] [place] [address], documented in this encounter Visit Diagnoses Diagnosis Physical exam, annual- Primary Anxiety Anxiety state, unspecified Essential hypertension Unspecified essential hypertension Leg swelling Swelling of limb Hepatic steatosis Other chronic nonalcoholic liver disease RUQ pain Abdominal pain, right upper quadrant Epigastric pain Abdominal pain, epigastric Abdominal pain, RLQ Gastroesophageal reflux disease without esophagitis Esophageal reflux Bloating Flatulence, eructation, and gas pain Nausea Nausea alone Diarrhea, unspecified type documented in this encounter Care Teams Glazier Supervisor Relationship Specialty Start Date End Date Julianna Freed PA-C [address] [place] [address] PCP - General Physician Catcher Filter Tip 07/17/18 documented as of this encounter
--- OUTSIDE RECORDS SUMMARY | 2025-02-10 09:05 | XMS_ITS | Encounter Summary ---
Author Organization [facility] yste Address [address] [place] [address] Care Team Providers Care Wash Operator Name Role Phone Julianna Freed PA-C Primary Care Provide r Encounter Details Date Type Department Care Team (Late st Contact Info) Description 02/10/2025 9:05 AM EDT Lab [facility] [address] [place] [id number] Hepatic steatosis Social History Tobacco Use Types Packs/Day Years [...] 02/03/2025 02/07/2025 documented as of this encounter Plan of Treatment Upcoming Encounters Date Type Department Care Team (Late st Contact Info) Description 03/03/2025 8:00 AM EDT Treatment [facility] [address] [place] [address] [address] [place] [phone] Sagar Soto, PT [address] [facility] [address] [place] [address] 03/10/2025 4:00 PM EDT Treatment [facility] [address] [place] [address] [address] [place] [phone] Sagar Soto, PT [address] [facility] [facility] [address] [place] [address] 03/29/2025 3:00 PM EDT Office Visit [facility] [address] [place] [phone] Julianna Freed PA-C [address] [place] [address] 03/31/2025 1:00 PM EDT Appointment [facility] [address] [place] [phone] 04/05/2025 1:00 PM EDT Outside Facility Service [facility] [address] [phone] Daljit Wilson MD [address] [address] documented as of this encounter Procedures Procedure Name Priority Date/Time Associated Diagnosis Comments JOHNSON FIBROSURE PLUS Routine 02/10/2025 8 :56 AM EDT Hepatic steatosis documented in this encounter Results * (ABNORMAL) JOHNSON Fibrosure [...] Stage F4 - Cirrhosis Steatosis Scoring Comment 4:07 AM EDT [facility] Comment: <=0.40 [...] developed and its performance characteristics determined by [facility]. It has not been cleared or approved by the Food and Drug Administration. For questions regarding this report please contact customer service at . References: 1. Mai Cavazos. et al. Diagnostic Value of Biochemical Markers (FibroTest) for the prediction of Liver Fibrosis in patients with Non-Alcoholic Fatty Liver Disease. BMC Gastroenterology 2006; 6:6. 2. Doyle Barillas. et al. The Diagnostic Performance of a Simplified Blood Test (SteatoTest-2) for the Prediction of Liver Steatosis. Eur J Gastroenterol Hepatol. 2019; 31:393-402. 3. Doyle Barillas. et al. Diagnostic performance of a new noninvasive test for nonalcoholic steatohepatitis using a simplified histological reference. Eur J Gastroenterol Hepatol. 2018 May; 30:569-577. Blood Venipuncture / Unknown 02/10/2025 8:56 AM EDT 02/10/2025 8:56 AM EDT Narrative [facility] - 02/13/2025 4:07 AM EDT Performed at: 01 - [facility] [address] [id number] Audit Manager: Emely Contreras MD, Phone: [phone] us Julianna Freed PA-C LAB BLOOD ORDERABLES Final Result Performing Organization Address City/State/[facility] Co de Phone Number [facility] [address] [place] [address], documented in this encounter Visit Diagnoses Diagnosis Hepatic steatosis Other chronic nonalcoholic liver disease documented in this encounter Care Teams Wash Operator Relationship Specialty Start Date End Date Julianna Freed PA-C [address] [place] [address] PCP - General Physician Fast Food Manager 07/17/18 documented as of this encounter
--- OUTSIDE RECORDS SUMMARY | 2025-02-22 09:00 | XMS_ITS | Encounter Summary ---
Author Organization [facility] Address [address] [place] [address] Care Team Providers Care Beck Operator Name Role Phone Julianna Freed Primary Care Provider Reason for Visit * Reason Comments Injections * Other Medical (Routine) - Closed Specialty Diagnoses / Procedures Referred By Contac t Referred To Contact Pain Medicine Diagnoses Spondylosis of cervical 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 radiculopathy Procedures RFA - Cervical / Thoracic RFA - Cervical / Thoracic Ermias Taylor MD [address] [address] Phone: tel: fax: [facility] Interventional Pain Medicine [address] [place] [phone] Phone: tel: fax: Referral ID Status Reason Start Date Expiration Date Visits Re quested Visits Authorized [id number] Closed 01/28/2025 07/30/2026 1 1 Encounter Details Date Type Department Care Team (Late st Contact Info) Description 02/22/2025 9:00 AM EDT Procedure Visit [facility] Interventional Pain Medicine [address] [place] [address] Ermias Taylor MD [address] [facility] [place] [address] Spondylosis of cervical 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 radiculopathy Social History Tobacco Use Types Packs/Day Years Used Date Smoking Tobacco: Never Smokeless Tobacco: Never Tobacco Cessation:Counseling Given: Not Answered Alcohol Use Standard Drinks/Week Comments Yes 0 [...] Sign Reading Time Taken Comments Blood Pressure 112/65 02/22/2025 10:04 AM EDT Pulse 97 02/22/2025 10:04 AM EDT Temperature 36.5 C (97.7 F) 02/22/2025 8:55 AM EDT Respiratory Rate 18 02/22/2025 10:04 AM EDT Oxygen Saturation 96% 02/22/2025 10:04 AM EDT Inhaled Oxygen Concentration - - Weight 80.3 kg (177 lb) 02/22/2025 8:55 AM EDT Height 152.4 cm (5') 02/22/2025 8:55 AM EDT Body Mass Index 34.57 02/22/2025 8:55 AM EDT documented in this encounter Miscellaneous Notes * Clinician Note - Adry Martinez RN - 02/22/2025 9:00 AM EDTAssociated Order(s): Interventional Pain Nurse Procedure Protocol Interventional Pain Nurse Procedure Protocol Documentation: Indications: Documentation supporting primary procedure completed by : Ermias Taylor MD See the provider procedure note for performed procedure details and findings. Pre-Procedure Checklist: Currently taking anticoagulant(s)?: no NPO since:: 02/21/2025 8:04 PM Sawyer Cork Slabs present?: yes (Ravi) Additional Pre-Procedure Comments: Vineet. Cerv. RFTC A timeout was called immediately prior to the procedure, in accordance with [facility] policy @ 0922 by DK Procedure details: Procedure start time:: 02/22/2025 9:25 AM Procedure end time:: 02/22/2025 9:44 AM Guidance used (if applicable): fluoro Total amount of contrast dye (mGy): 5.2 Fluoro time: 50 seconds Moderate conscious sedation used?: yes Sedation details (see MAR for exact dosages): Sedation start time: 02/22/2025 9:24 AM Preoxygenation: Nasal cannula Sedation: Midazolam (2mg @ [address] Taylor/DK) Analgesia: Fentanyl (50mcg @ [address] Taylor/DK; 50mcg @ [address] Taylor/DK) Intra-procedure monitoring: Frequent LOC assessments, frequent vital sign checks, continuous pulse oximetry and blood pressure monitoring Intra-procedure management: Supplemental oxygen Post-procedure details: Orientation at discharge?: Normal to time, normal to place, normal to person, normal to situation and completely oriented Mood and Affect normal?: yes Discharged to: home Mode of exit: Walked and wheelchair Post-sedation assessments completed and reviewed: nausea/vomiting and pain level Patient is stable for discharge or admission: yes Procedure completion: Tolerated Comments: VORB ok to d/c to home per Dr. 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 female. Encounter Diagnosis Name Primary? Spondylosis of cervical 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 radiculopathy RFA - Cervical / Thoracic Performed by: Denzel Bravo DO Authorized by: Ermias Taylor MD [place] Protocol: Time out was called immediately prior [...] facet Number of levels: 2 Laterality: Bilateral Moderate Sedation Performed by: Denzel Bravo DO Authorized by: Ermias Taylor MD Pre-sedation assessment: NPO status caution: appropriate NPO status ASA classification: class 3 - patient with severe systemic disease Mallampati score: III - soft palate, base of uvula visible Pre-sedation assessment completed: 02/22/2025 9:22 AM Immediate pre-procedure details: Reassessment: Patient reassessed immediately prior to procedure and felt to be medically appropriate to proceed as planned. Reviewed: NPO status Procedure(s): Bilateral C4, C5, and C6 Cervical medial branch radiofrequency ablation Anesthesia Type: Moderate Conscious Sedation, Intravenous Complications: none Follow-up Plan: Clinic follow up as scheduled Procedure: This patient was seen earlier for a comprehensive evaluation of their painful condition.After discussing treatment options, the patient elected to proceed with a cervical medial branch ablation. Written, informed consent was obtained before the start of the procedure. The patient's history of present illness, past medical history (including current medications and allergies), and physical examination were reviewed with the patient immediately before the procedure, and it was confirmed directly with the patient that they desired to proceed. The patient ambulated to the operating room and was placed in the prone position with pressure points padded. A time out was performed, confirming the patient's identification, allergy status, the side(s) of the procedure, and the procedure(s) to be performed. All operators were wearing hats, masksand sterile gloves. The patient underwent ChloraPrep skin prep followed by sterile drape. The needle insertion site for each medial branch radiofrequency ablation site, as mentioned above, was identified by fluoroscopy and marked. The patient received 2% lidocaine subcutaneously. Under fluoroscopic guidance using a coaxial approach, 20 g 3.5 inch radiofrequency cannula was advanced until the needle tip contacted the waist of the articular pillar at each level. Appropriate positioning of each needle tip was confirmed by fluoroscopy in the lateral view. Nerve testing was then performed at each level. Motor stimulation was then performed at 2 Hz with Vof 1.5 at each site. At no time was a radicular pattern of stimulation noted. No motor stimulation of the leg was noted and confirmed verbally with the patient. Then each cannula was injected with 1 mL of 2% lidocaine. After approximately 60 seconds, radiofrequency ablation was then performed at 80degrees C for 90 seconds. The needles were then rotated 180 degrees and slightly withdrawn confirmed on a lateral view. Radiofrequency ablation was then performed at 80 degrees C for 90 seconds. The styles were then replaced at the needles removed. Sterile bandages were applied over the puncture sites. Following completion of the procedure, the patient was transported to the PACU, then was later discharged in stable condition. Moderate Conscious Sedation Documentation Total time: 19 minutes Pre-procedure assessment: Visit Vitals BP 112/65 Pulse 97 Temp 36.5 ??C (97.7 ??F) Resp 18 Current Outpatient Medications Medication Instructions Adalimumab (Humira Pen) 40 MG/0.4ML Pen-injector Kit 0.4 mL, Weekly albuterol 108 (90 Base) MCG/ACT inhaler 2 puffs, Inhalation, Every 4 hours PRN amLODIPine (NORVASC) 5 mg, Daily Bacillus Coagulans-Inulin (Probiotic) 1-250 BILLION-MG capsule fexofenadine (JUSTO) 180 mg, Daily FLUoxetine (PROzac) 10 MG capsule TAKE 1 CAPSULE BY MOUTH EVERY DAY (TAKE WITH 20MG DOSE FOR 30MG DAILY TOTAL) FLUoxetine (PROZAC) 20 mg, As needed Gel Base gel 2 g, As needed ketoconazole (NIZOral) 2 % shampoo 1 Application as needed. lidocaine (Xylocaine) 5 % ointment Apply to back 2-3x daily as needed for pain losartan (Cozaar) 50 MG tablet 50 mg methocarbamol (Robaxin) 500 MG tablet TAKE 1 TO 1 AND 1/2 TABLETS BY MOUTH UP TO 3 TIMES A DAY NEEDED FOR MUSCLE SPASMS/TIGHTNESS methylPREDNISolone (Medrol Dospak) 4 MG tablets Take as directed on package. montelukast (SINGULAIR) 10 mg nabumetone (Relafen) 750 MG tablet 1 tablet, Every 12 hours nirmatrelvir & ritonavir 300/100 (Paxlovid) Oral Therapy Pack 3 tablets, Oral, 2 times daily, Take as directed by medication packaging pantoprazole (PROTONIX) 40 mg, ZZ Daily RT Probiotic, Lactobacillus, capsule No dose, route, or frequency recorded. promethazine-dextromethorphan (Phenergan-DM) 6.25-15 MG/5ML syrup 5 mL, Oral, Nightly rosuvastatin (CRESTOR) 10 mg, ZZ Daily RT tretinoin (Retin-A) 0.025 % cream APPLY A PEA SIZED AMOUNT TO THE AFFECTED AREA(S) BY TOPICAL ROUTEONCE DAILY AT BEDTIME Wegovy 1.7 MG/0.75ML solution auto-injector Wegovy 2.4 MG/0.75ML solution auto-injector Inject 2.4 mg under the skin into the appropriate area as directed Every 7 (Seven) Days. Allergies[1] Pertinent Physical Exam: General: AOX4 Cardiac: RRR Pulm: CTAB, normal wob Airway: Patent Mallampati Score 3 Sedation: Intravenous moderate conscious sedation. Continuous Monitoring: pulse oximetry, Heart rate, blood pressure, airway Physician and nurse present and [id number] with the patient during the entire administration of conscious sedation and had a pftt-[id number] evaluation in PACU before discharge. Moderate conscious sedation rendered patient comfortable and purposefully responsive to verbal and/or tactile stimulation.No intervention require for airway. Spontaneous ventilation adequate. Nasal canula with oxygen utilized. While performing the procedure I supervised and directed the independent trained nurse/observer who assisted in monitoring the patient's level of consciousness and physiological status throughout the procedure. Interventional Pain Nurse Procedure Protocol Documentation: Indications: Documentation supporting primary procedure completed by : Ermias Taylor MD See the provider procedure note for performed procedure details and findings. Pre-Procedure Checklist: Currently taking anticoagulant(s)?: no NPO since:: 02/21/2025 8:04 PM Sawyer Cork Slabs present?: yes (Ravi) Additional Pre-Procedure Comments: Vineet. Cerv. RFTC A timeout was called immediately prior to the procedure, in accordance with [facility] policy @ 0922 by DK Procedure details: Procedure start time:: 02/22/2025 9:25 AM Procedure end time:: 02/22/2025 9:44 AM Guidance used (if applicable): fluoro Total amount of contrast dye (mGy): 5.2 Fluoro time: 50 seconds Moderate conscious sedation used?: yes Sedation details (see MAR for exact dosages): Sedation start time: 02/22/2025 9:24 AM Preoxygenation: Nasal cannula Sedation: Midazolam (2mg @ [address] Taylor/DK) Analgesia: Fentanyl (50mcg @ [address] Taylor/DK; 50mcg @ [address] Taylor/DK) Intra-procedure monitoring: Frequent LOC assessments, frequent vital sign checks, continuous pulse oximetry and blood pressure monitoring Intra-procedure management: Supplemental oxygen Post-procedure details: Orientation at discharge?: Normal to time, normal to place, normal to person, normal to situation and completely oriented Mood and Affect normal?: yes Discharged to: home Mode of exit: Walked and wheelchair Post-sedation assessments completed and reviewed: nausea/vomiting and pain level Patient is stable for discharge or admission: yes Procedure completion: Tolerated Comments: VORB ok to d/c to home per Dr. 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 documented in this encounter Plan of Treatment Upcoming Encounters Date Type Department Care Team (Late st Contact Info) Description 03/05/2025 2:45 PM EDT Office Visit [facility] [address] [place] [address] Janeen Vanegas [address] [facility] Jhoana Snell [facility] [address] [place] [address] 03/11/2025 1:00 PM EDT Procedure Visit [facility] [address] [place] [phone] Gladys Mccarthy, DO [address] [place] [phone] 03/12/2025 8:30 AM EDT Office Visit [facility] [address] [place] [address] Janeen Vanegas [address] [facility] [address] [place] [address] 03/12/2025 10:30 AM EDT Office Visit [facility] [address] [place] [address] Lucrecia Morales [address] [facility] [address] [place] [address] 03/31/2025 10:00 AM EDT Office Visit [facility] [address] [place] [address] 04/02/2025 9:20 AM EDT Office Visit [facility] Interventional Pain Medicine [address] [facility] [place] [phone] Ermias Taylor MD [address] [facility] [address] [place] [phone] 04/08/2025 3:40 PM EDT Procedure Visit [facility] at [facility] [address] [place] [phone] Gladys Mccarthy, DO [address] [place] [phone] 04/13/2025 3:50 PM EDT Office Visit [facility] at [facility] [address] [place] [address] Carlton Gaines, DO [address] [place] [phone] 05/06/2025 3:40 PM EDT Procedure Visit [facility] at [facility] [address] [place] [phone] Gladys Mccarthy, DO [address] [place] [address] 06/03/2025 3:40 PM EST Procedure Visit [facility] at [facility] [address] [place] [address] Gladys Mccarthy, DO [address] [place] [phone] 09/07/2025 7:30 AM EST [facility] [address] [facility], 3rd [place] [address] documented as of this encounter Procedures Procedure Name Priority Date/Time Associated Diagnosis Comments IVP NURSE PROCEDURE PROTOCOL Routine 02/22/2025 9:00 AM EDT WA DSTR NROLYTC AGNT PARVERTEB FCT ADDL CRVCL/THORA Routine 02/22/2025 9:00 AM EDT Spondylosis of cervical 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 radiculopathy WA DSTR NROLYTC AGNT PARVERTEB FCT ADDL CRVCL/THORA Routine 02/22/2025 9:00 AM EDT Spondylosis of cervical 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 radiculopathy WA DSTR NROLYTC AGNT PARVERTEB FCT SNGL CRVCL/THORA Routine 02/22/2025 9:00 AM EDT Spondylosis of cervical 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 radiculopathy PBPROC Routine 02/22/2025 9:00 AM EDT Spondylosis of cervical 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 radiculopathy documented in this encounter Results * Moderate Sedation (02/22/2025 9:00 AM EDT) Narrative Ermias Taylor MD - 02/22/2025 9:00 AM EDT Ermias Taylor MD 02/22/2025 1:01 PM Moderate Sedation Performed by: Denzel Bravo DO Authorized by: Ermias Taylor MD Pre-sedation assessment: NPO status caution: appropriate NPO status ASA classification: class 3 - patient with severe systemic disease Mallampati score: III - soft palate, base of uvula visible Pre-sedation assessment completed: 02/22/2025 9:22 AM Immediate pre-procedure details: Reassessment: Patient reassessed immediately prior to procedure and felt to be medically appropriate to proceed as planned. Reviewed: NPO status Ermias Taylor MD IN CLINIC/BEDSIDE ORDERABLES Final Result * Interventional Pain Nurse Procedure Protocol (02/22/2025 9:00 AM EDT) Lacy Olmstead - 02/22/2025 9:00 AM EDT Lacy Whittaker 02/22/2025 1:02 PM Interventional Pain Nurse Procedure Protocol Documentation: Indications: Documentation supporting primary procedure completed by : Ermias Taylor MD See the provider procedure note for performed procedure details and findings. Pre-Procedure Checklist: Currently taking anticoagulant(s)?: no NPO since:: 02/21/2025 8:04 PM Sawyer Cork Slabs present?: yes (Ravi) Additional Pre-Procedure Comments: Vineet. Cerv. RFTC A timeout was called immediately prior to the procedure, in accordance with [facility] policy @ 0922 by DK Procedure details: Procedure start time:: 02/22/2025 9:25 AM Procedure end time:: 02/22/2025 9:44 AM Guidance used (if applicable): fluoro Total amount of contrast dye (mGy): 5.2 Fluoro time: 50 seconds Moderate conscious sedation used?: yes Sedation details (see MAR for exact dosages): Sedation start time: 02/22/2025 9:24 AM Preoxygenation: Nasal cannula Sedation: Midazolam (2mg @ [address] Taylor/DK) Analgesia: Fentanyl (50mcg @ [address] Yang; 50mcg @ [address] Yang) Intra-procedure monitoring: Frequent LOC assessments, frequent vital sign checks, continuous pulse oximetry and blood pressure monitoring Intra-procedure management: Supplemental oxygen Post-procedure details: Orientation at discharge?: Normal to time, normal to place, normal to person, normal to situation and completely oriented Mood and Affect normal?: yes Discharged to: home Mode of exit: Walked and wheelchair Post-sedation assessments completed and reviewed: nausea/vomiting and pain level Patient is stable for discharge or admission: yes Procedure completion: Tolerated Comments: VORB ok to d/c to home per Dr. 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 us Ermias Taylor MD IN CLINIC/BEDSIDE ORDERABLES Final Result * WA DSTR NROLYTC AGNT PARVERTEB FCT SNGL CRVCL/THORA, WA DSTR NROLYTC AGNT PARVERTEB FCT ADDL CRVCL/THORA, WA DSTR NROLYTC AGNT PARVERTEB FCT ADDL CRVCL/THORA (02/22/2025 9:00 AM EDT) Narrative Ermias Taylor MD - 02/22/2025 9:00 AM EDT Ermias Taylor MD 02/22/2025 1:01 PM RFA - Cervical / Thoracic Performed by: Denzel Bravo DO Authorized by: Ermias Taylor MD [place] Protocol: Time out was called immediately prior [...] myelopathy or radiculopathy documented in this encounter Administered Medications Active Administered Medications - up to 3 most recent administrations Medication Order MAR Action Action Date Dose Rate Site sodium chloride 0.9 % flush 10 mL 10 mL, Intravenous, As needed, Starting on Sat02/22/25 at 0908, Until Discontinued, Routine, line careIndications:Spondylosis of cervical 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 radiculopathy Given 02/22/2025 9:08 AM EDT 10 mL Inactive Administered Medications - up to 3 most recent administrations Medication Order MAR Action Action Date Dose Rate Site bupivacaine PF (Marcaine) 0.25 % injection 25 mg 25 mg (10 mL), Injection, Once, 1 dose, On Sat02/22/25 at 1015, RoutineIndications:Spondylosis of cervical 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 radiculopathy Given by Other 02/22/2025 9:28 AM EDT 25 mg fentaNYL (Sublimaze) injection 50 mcg 50 mcg, Intravenous, Once, 1 dose, On Sat02/22/25 at 1015, RoutineIndications:Spondylosis of cervical 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 radiculopathy Given 02/22/2025 9:24 AM EDT 50 mcg lidocaine PF (Xylocaine) 1 % injection 300 mg 300 mg (30 mL), Injection, Once, 1 dose, On Sat02/22/25 at 1015, RoutineIndications:Spondylosis of cervical 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 radiculopathy Given by Other 02/22/2025 9:28 AM EDT 300 mg midazolam (Versed) injection 2 mg 2 mg, Intravenous, Once, 1 dose, On Sat02/22/25 at 1015, RoutineIndications:Spondylosis of cervical 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 radiculopathy Given 02/22/2025 9:24 AM EDT 2 mg sodium bicarbonate 8.4 % injection 50 mEq 50 mEq, Subcutaneous, Once, 1 dose, On Sat02/22/25 at 1015, RoutineIndications:Spondylosis of cervical 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 radiculopathy Given by Other 02/22/2025 9:27 AM EDT 50 mEq Other documented in this encounter Additional Health Concerns Assessment Noted Time PHQ-9 Depression Total Score: 0 09/30/19 3:29 PM EDT A fall risk assessment has been complete d for the patient 02/22/2025 8:55 AM EDT A Body Mass Index follow-up plan has been documented for the patient 02/22/2025 1:02 PM EDT documented as of this encounter Care Teams Beck Operator Relationship Specialty Start Date End Date Julianna Freed PA [address] [facility] [address] [place] [phone] PCP - General 11/25/20 documented as of this encounter
--- OUTSIDE RECORDS SUMMARY | 2025-03-01 09:40 | XMS_ITS | Encounter Summary ---
Author Organization [facility] Address [address] [place] [address] Care Team Providers Care Select Banker Name Role Phone Julianna Freed PA-C Primary Care Provide r Encounter Details Date Type Department Care Team (Latest Contact Info) Description 01/26/2025 Travel Social History Tobacco Use Types Packs/Day Years [...] file Travel History Travel Start Travel End [place] 02/03/2025 02/07/2025 documented as of this encounter Plan of Treatment Upcoming Encounters Date Type Department Care Team (Late st Contact Info) Description 03/03/2025 8:00 AM EDT Treatment [facility] [address] [place] [address] [address] [place] [address] Sagar Soto, PT [address] [facility] [address] [place], [place] [id number] 03/10/2025 4:00 PM EDT Treatment [facility] [address] [facility] [address] [place] [address] Sagar Soto, PT [address] [facility] [address] [place], [place] [id number] 03/29/2025 3:00 PM EDT Office Visit [facility] [address] [place] [phone] Julianna Freed PA-C [address] [place] [address] 03/31/2025 1:00 PM EDT Appointment [facility] NUCLE[facility]IC[facility] [address] [place] [phone] 04/05/2025 1:00 PM EDT Outside Facility Service [facility] [address] [facility] [address] [place] [phone] Daljit Wilson MD [address] [facility] [address] [place] [address] documented as of this encounter Visit Diagnoses Not on filedocumented in this encounter Care Teams Select Banker Relationship Specialty Start Date End Date Julianna Freed PA-C [address] [place] [address] PCP - General Physician Shade Bander 07/17/18 documented as of this encounter
--- OUTSIDE RECORDS SUMMARY | 2025-03-01 09:40 | XMS_ITS | Encounter Summary ---
Author Organization [facility] Address [address] [place] [address] Care Team Providers Care Wire Sawyer Name Role Phone Julianna Freed Primary Care Provider Reason for Visit * Reason Comments Med Refill Encounter Details Date Type Department Care Team (Late st Contact Info) Description 08/26/2023 Refill [facility] at [facility] [address] [place] [address] Mohan Hawthorne, DO [address] [place] [address] Cervical radiculopathy at C5 Social History Tobacco Use Types Packs/Day Years Used Date Smoking Tobacco: Never Smokeless Tobacco: Never Alcohol Use Standard Drinks/Week Comments Yes 0 (1 standard drink = 0.6 oz pure alcohol) Social drinker - less than 1 time per week PHQ-2 Answer Date Recorded Patient Health Questionnaire-2 Score 0 08/30/2023 PHQ-2A Answer Date Recorded Depression Risk 0 06/29/2023 Comments No Sex and Gender Information Value Date Recorded Sex Assigned at Female 05/21/2021 5:57 PM EST Legal Sex Female 7:57 PM EDT Gender Identity Female 05/21/2021 5:57 PM EST Sexual Orientation Not on file documented as of this encounter Plan of Treatment Upcoming Encounters Date Type Department Care Team (Late st Contact Info) Description 03/05/2025 2:45 PM EDT Office Visit [facility] INTEGRATIVE MEDICINE AND HEALTH [address]3rd [place] [address] Janeen Vanegas 800 [facility] Jhoana Snell [facility] [address] [place] [address] 03/11/2025 1:00 PM EDT Procedure Visit [facility] at [facility] [address] [place] [place] [address] Gladys Mccarthy, [address] [place] [address] 03/12/2025 8:30 AM EDT Office Visit [facility] MEDICINE AND HEALTH [address] [place] [address] Janeen Vanegas 800 [facility] Jhoana Snell [facility] [address] [place] [address] 03/12/2025 10:30 AM EDT Office Visit [facility] INTE[facility]IVE MEDICINE AND HEALTH [address] [place] [address] Lucrecia Morales 800 [facility] Jhoana Snell [facility] [address] [place] [address] 03/31/2025 10:00 AM EDT Office Visit [facility]over [facility] [address] [place] [address] 04/02/2025 9:20 AM EDT Office Visit [facility] Interventional Pain Medicine [address] [facility] [address] Ermias Taylor MD [address] [facility] [address] [place] [address] 04/08/2025 3:40 PM EDT Procedure Visit [facility] at [facility] [address] [place] [address] Gladys Mccarthy, DO [address] [place] [address] 04/13/2025 3:50 PM EDT Office Visit [facility] at [facility] [address] [place] [address] Carlton Gaines, DO [address] [place] [address] 05/06/2025 3:40 PM EDT Procedure Visit [facility] at [facility] [address] [place] [place] [address] Gladys Mccarthy, DO [address] [place] [address] 06/03/2025 3:40 PM EST Procedure Visit [facility] [address] [place] [place] [address] Gladys Mccarthy, DO [address] [place] [address] 09/07/2025 7:30 AM EST Ovarian Cancer Screening [facility] Gynecology [address] [facility], 3rd [place] [address] documented as of this encounter Visit Diagnoses Diagnosis Cervical radiculopathy at C5 documented in this encounter Additional Health Concerns Infection Onset Date Last Indicated Resolved Time Influenza 08/31/2024 08/31/2024 09/28/2024 9:53 PM EDT COVID-19 Rule-Out 11/12/2024 11/12/2024 11/12/2024 11:30 AM EDT COVID 19 (Confirmed) 11/12/2024 11/12/2024 025 9:54 PM EDT Assessment Noted Time A fall risk assessment has been complete d for the patient 08/13/2023 8:13 AM EST A Body Mass Index follow-up plan has been documented for the patient 08/13/2023 10:57 AM EST documented as of this encounter Care Teams Wire Sawyer Relationship Specialty Start Date End Date Julianna Freed PA [address] [place] [phone] PCP - General 11/25/20 documented as of this encounter
--- OUTSIDE RECORDS SUMMARY | 2025-03-01 09:40 | XMS_ITS | Encounter Summary ---
Author Organization [facility] Address [address] [place] [address] Care Team Providers Care Malt Liquors Sales Representative Name Role Phone Julianna Freed PA-C Primary Care Provide r Encounter Details Date Type Department Care Team (Latest Contact Info) Description 01/19/2025 Travel Social History Tobacco Use Types Packs/Day [...] file Travel History Travel Start Travel End [place] 02/03/2025 02/07/2025 documented as of this encounter Plan of Treatment Upcoming Encounters Date Type Department Care Team (Late st Contact Info) Description 03/03/2025 8:00 AM EDT Treatment [facility] PHYSICAL THERAPY [address] [place] [address] 120 [place] [address] Sagar Soto, PT 3000 [facility] [address] [place], [place] [id number] 03/10/2025 4:00 PM EDT Treatment [facility] PHYSICAL THERAPY [address] [facility] [address] [place] [address] Sagar Soto, PT 3000 [facility] [address] [place], [place] [address] 03/29/2025 3:00 PM EDT Office Visit [facility] PRIMARY CARE [address] [place] [address] Julianna Freed PA-C [address] [place] [address] 03/31/2025 1:00 PM EDT Appointment [facility] NUCLEAR MEDICINE [address] [place] [address] 04/05/2025 1:00 PM EDT Outside Facility Service [facility] GASTROENTEROLOGY [address] [facility] 302 [place] [address] Daljit Wilson MD 17[address] [facility] 302 [place] [address] documented as of this encounter Visit Diagnoses Not on filedocumented in this encounter Care Teams Malt Liquors Sales Representative Relationship Specialty Start Date End Date Julianna Freed PA-C [address] [place] [address] PCP - General Physician Used Car Make Ready Worker 07/17/18 documented as of this encounter
--- OUTSIDE RECORDS SUMMARY | 2025-03-01 09:40 | XMS_ITS | Encounter Summary ---
Author Organization [facility] Address [address] [place] [address] Care Team Providers Care Assembly And Packing Supervisor Name Role Phone Julianna Freed PA-C Primary Care Provide r Reason for Visit * Reason Onset Date Comments Med Refill 02/07/2025 Encounter Details Date Type Department Care Team (Late st Contact Info) Description 02/07/2025 Refill [facility] PRIMARY CARE [address] [place] [address] Julianna Freed PA-C [address] [place] [phone] Seasonal allergies; Essential hypertension; Mixed hyperlipidemia Social History Tobacco Use Types Packs/Day Years [...] 02/03/2025 02/07/2025 documented as of this encounter Functional Status * Calculated C-SSRS Risk Score (Lifetime/Recent) Answer Date of Assessment Author No Risk Indicated 02/07/2025 11:43 PM EDT Denzel Jackson, BETTY * [place] Suicide Severity Rating Scale (Screener/Recent Self-Report) Question Answer Date of Assessment Author 1. Wish to be (Past 1 Month) No 025 11:43 PM EDT Denzel Jackson, BETTY 2. Non-Specific Active Suici shaneka Thoughts (Past 1 Month) No 02/07/2025 11:43 PM EDT Nichelle Jackson RN 6. Suicidal Behavior (Lifetime) No 11:43 PM EDT Denzel Jackson, BETTY documented as of this encounter Plan of Treatment Upcoming Encounters Date Type Department Care Team (Late st Contact Info) Description 03/03/2025 8:00 AM EDT Treatment [facility]CHIATRIC PHYSICAL THERAPY [address] [place] [address] [address] [place] [address] Sagar Soto, PT 3000 [facility] [address] [place] [address] 03/10/2025 4:00 PM EDT Treatment [facility] PHYSICAL THERAPY [address] [place] [address] [address] [place] [address] Sagar Soto, PT [address] [facility] [address] [place] [address] 03/29/2025 3:00 PM EDT Office [facility] [address] [facility] [place] [address] Julianna Freed PA-C [address] [place] [address] 03/31/2025 1:00 PM EDT Appointment [facility] NUCLEAR MEDICINE [address] [place] [address] 04/05/2025 1:00 PM EDT Outside Facility Service [facility] GASTROENTEROLOGY [address] [phone] Daljit Wilson MD [address] [address] documented as of this encounter Visit Diagnoses Diagnosis Seasonal allergies Allergic rhinitis, cause unspecified Essential hypertension Unspecified essential hypertension Mixed hyperlipidemia documented in this encounter Care Teams Assembly And Packing Supervisor Relationship Specialty Start Date End Date Julianna Freed PA-C [address] [facility] [place] [address] PCP - General Physician Deicer Kit Assembler 07/17/18 documented as of this encounter
--- OUTSIDE RECORDS SUMMARY | 2025-03-01 09:40 | XMS_ITS | Encounter Summary ---
Author Organization [facility] Address [address] [place] [address] Care Team Providers Care Technical Assistance Consultant Name Role Phone Julianna Freed Primary Care Provider Encounter Details Date Type Department Care Team (Latest Contact Info) Description 02/22/2025 Travel Social History Tobacco Use Types Packs/Day [...] Description 03/05/2025 2:45 PM EDT Office Visit [facility] INTEGRATIVE MEDICINE AND HEALTH [address] [place] [address] Janeen Vanegas [address] Jhoana Snell [facility] [address] [place] [address] 03/11/2025 1:00 PM EDT Procedure Visit [facility] at [facility] [address] [place] [address] Gladys Mccarthy, DO [address] [place] [address] 03/12/2025 8:30 AM EDT Office Visit [facility] INTEGRATIVE MEDICINE AND HEALTH [address] [place] [address] Janeen Vanegas [address] Jhoana Snell [facility] [address] [place] [address] 03/12/2025 10:30 AM EDT Office Visit [facility] INTEGRATIVE MEDICINE AND HEALTH [address] [place] [address] Lucrecia Morales 800 [facility] Jhoana Snell [facility] [address] [place] [address] 03/31/2025 10:00 AM EDT Office Visit [facility] Recover [facility] [address] [place] [address] 04/02/2025 9:20 AM EDT Office Visit [facility] Interventional Pain Medicine [address] [facility] [place] [address] Ermias Taylor MD [address] [facility] [address] [place] [address] 04/08/2025 3:40 PM EDT Procedure Visit [facility] [address] [place] [address] Gladys Mccarthy, [address] [place] [address] 04/13/2025 3:50 PM EDT Office Visit [facility] [address] [place] [address] Carlton Gaines, DO [address] [place] [address] 05/06/2025 3:40 PM EDT Procedure Visit [facility] [address] [place] [address] Gladys Mccarthy, DO [address] [place] [address] 06/03/2025 3:40 PM EST Procedure Visit [facility] [address] [place] [address] Gladys Mccarthy, DO [address] [place] [address] 09/07/2025 7:30 AM EST Ovarian Cancer Screening [facility] Gynecology [address] [facility], 3rd [place] [address] documented as of this encounter Visit Diagnoses [...] documented as of this encounter Care Teams Technical Assistance Consultant Relationship Specialty Start Date End Date Julianna Freed PA [address] [place] [address] PCP - General 11/25/20 documented as of this encounter
--- OUTSIDE RECORDS SUMMARY | 2025-03-01 09:40 | XMS_ITS | Encounter Summary ---
Author Organization [facility] Address [address] [place] [address] Care Team Providers Care Floor Helper Name Role Phone Julianna Freed PA-C Primary Care Provide r Encounter Details Date Type Department Care Team (Latest Contact Info) Description 02/07/2025 Travel Social History Tobacco Use Types Packs/Day [...] file Travel History Travel Start Travel End [place] 02/03/2025 02/07/2025 documented as of this encounter Functional Status * Calculated C-SSRS Risk Score (Lifetime/Recent) Answer Date of Assessment Author No Risk Indicated 02/07/2025 11:43 PM EDT Denzel Jackson RN * [place] Suicide Severity Rating Scale (Screener/Recent Self-Report) Question Answer Date of Assessment Author 1. Wish to be (Past 1 Month) No 025 11:43 PM EDT Denzel Jackson RN 2. Non-Specific Active Suici shaneka Thoughts (Past 1 Month) No 02/07/2025 11:43 PM EDT Nichelle Jackson RN 6. Suicidal Behavior (Lifetime) No 11:43 PM EDT Denzel Jackson RN documented as of this encounter Plan of Treatment Upcoming Encounters Date Type Department Care Team (Late st Contact Info) Description 03/03/2025 8:00 AM EDT Treatment [facility] PHYSICAL THERAPY [address] [place] [address] [address] [place] [address] Sagar Soto, PT 3000 [facility] [address] [place] [address] 03/10/2025 4:00 PM EDT Treatment [facility] PHYSICAL THERAPY [address] [place] [address] [address] [place] [address] Sagar Soto, PT 3000 [facility] [address] [place] [address] 03/29/2025 3:00 PM EDT Office Visit [facility] PRIMARY CARE [address] [place] [address] Julianna Freed PA-C [address] [place] [address] 03/31/2025 1:00 PM EDT Appointment [facility] NUCLEAR MEDICINE [address] [place] [address] 04/05/2025 1:00 PM EDT Outside Facility Service [facility] GASTROENTEROLOGY 1720 [facility] 302 [place] [address] Daljit Wilson MD [address] [facility] 302 [place] [address] documented as of this encounter Visit Diagnoses Not on filedocumented in this encounter Care Teams Floor Helper Relationship Specialty Start Date End Date Julianna Freed PA-C [address] [place] [address] PCP - General Physician Water Valve Mechanic 07/17/18 documented as of this encounter
--- OUTSIDE RECORDS SUMMARY | 2025-03-01 09:40 | XMS_ITS | Encounter Summary ---
[facility] Organization [facility] Address [address] [place] [address] Care Team Providers Care Reel Blade Bender Furnace Tender Name Role Phone Julianna Freed PA-C Primary Care Provide r Encounter Details Date Type Department Care Team (Late st Contact Info) Description 02/13/2025 Results Follow-Up [facility] PRIMARY CARE [address] [place] [address] Julianna Freed PA-C [address] [place] [address] Social History Tobacco Use Types Packs/Day Years [...] file Travel History Travel Start Travel End [place] 02/03/2025 02/07/2025 documented as of this encounter Plan of Treatment Upcoming Encounters Date Type Department Care Team (Late st Contact Info) Description 03/03/2025 8:00 AM EDT Treatment [facility] PHYSICAL THERAPY [address] [place] [address] 120 [place] [address] Sagar Soto, PT [address] [facility] [address] [place] [address] 03/10/2025 4:00 PM EDT Treatment [facility] PHYSICAL THERAPY [address] [place] [address] [address] [place] [address] Sagar Soto, PT [address] [facility] [address] [place] [address] 03/29/2025 3:00 PM EDT Office Visit [facility] PRIMARY CARE [address] [place] [address] Julianna Freed, PA-C [address] [place] [address] 03/31/2025 1:00 PM EDT Appointment [facility] NUCLEAR MEDICINE [address] [place] [address] 04/05/2025 1:00 PM EDT Outside Facility Service [facility] GASTROENTEROLOGY [address] [phone] Daljit Wilson MD [address] [address] documented as of this encounter Visit Diagnoses Not on filedocumented in this encounter Care Teams Reel Blade Bender Furnace Tender Relationship Specialty Start Date End Date Julianna Freed PA-C [address] [facility] [place] [place] [address] PCP - General Physician Stenotypist 07/17/18 documented as of this encounter
--- OUTSIDE RECORDS SUMMARY | 2025-03-01 09:40 | XMS_ITS | Encounter Summary ---
Author Organization [facility] Address [address] [place] [address] Care Team Providers Care Electronic Health Records Specialist Name Role Phone Julianna Freed PA-C Primary Care Provide r Encounter Details Date Type Department Care Team (Latest Contact Info) Description 02/09/2025 Travel Social History Tobacco Use Types Packs/Day [...] file Travel History Travel Start Travel End [place] 02/03/2025 02/07/2025 documented as of this encounter Plan of Treatment Upcoming Encounters Date Type Department Care Team (Late st Contact Info) Description 03/03/2025 8:00 AM EDT Treatment [facility] PHYSICAL THERAPY [address] [place] [address] [address] [place] [address] Sagar Soto, PT 3000 [facility] [address] [place] [address] 03/10/2025 4:00 PM EDT Treatment [facility] PHYSICAL THERAPY [address] [place] [address] [address] [place] [address] Sagar Soto, PT 3000 [facility] [address] [place] [address] 03/29/2025 3:00 PM EDT Office Visit [facility] PRIMARY CARE [address] [place] [phone] Julianna Freed PA-C [address] [place] [address] 03/31/2025 1:00 PM EDT Appointment [facility] NUCLEAR MEDICINE [address] [place] [address] 04/05/2025 1:00 PM EDT Outside Facility Service [facility] GASTROENTEROLOGY [address] [address] Daljit Wilson MD [address] [address] documented as of this encounter Visit Diagnoses Not on filedocumented in this encounter Care Teams Electronic Health Records Specialist Relationship Specialty Start Date End Date Julianna Freed PA-C 8 [place] [address] PCP - General Physician Hull Sorter 07/17/18 documented as of this encounter
--- OUTSIDE RECORDS SUMMARY | 2025-03-01 09:40 | XMS_ITS | Encounter Summary ---
Author Organization [facility] Address [address] [place] [address] Care Team Providers Care Locomotive Crane Operator Helper Name Role Phone Julianna Freed Primary Care Provider Reason for Visit * Reason Onset Date Comments HCN - Patient Message 01/27/2025 Encounter Details Date Type Department Care Team (Late st Contact Info) Description 01/27/2025 [facility] Interventional Pain Medicine [address] [place] [address] Ermias Taylor MD 2400 [facility] [address] [place] [address] HCN - Patient Message Social History Tobacco Use Types Packs/Day Years [...] as of this encounter Miscellaneous Notes * Telephone Encounter - Kylie Carranza LPN - 01/27/2025 10:06 AM EDT Spoke with patient, appointment scheduled. * Telephone Encounter - Justin Xiong - 01/27/2025 9:20 AM EDT Clinical Concern/Question Reason for Call: Dr. Taylor pt called to ask that an order be placed for RFA. Best contact number: [phone] (home) Optimal time of day to reach caller: ANYTIME Additional comments/information from caller: None Note: Please do not reply to this message. Follow-up communication and further actions as a result of this message need to be communicated with the patient directly, if the patient is not active onMyChart. If the patient is active on MyChart, they will receive notification of the communication/outcome via InvoiceSharinghart. documented in this encounter Plan of Treatment Upcoming Encounters Date Type Department Care Team (Late st Contact Info) Description 03/05/2025 2:45 PM EDT Office Visit [facility] INTEGRATIVE MEDICINE AND HEALTH [address] [facility] [place] [address] Janeen Vanegas [address] [facility] Jhoana Snell [facility] [address] [place] [address] 03/11/2025 1:00 PM EDT Procedure Visit [facility] [address] [place] [address] Gladys Mccarthy DO [address] [place] [address] 03/12/2025 8:30 AM EDT Office Visit [facility] INTEGRATIVE MEDICINE AND HEALTH [address] [place] [address] Janeen Vanegas 800 [facility] Jhoana Snell [facility] [address] [place] [address] 03/12/2025 10:30 AM EDT Office Visit [facility] INTEGRATIVE MEDICINE AND HEALTH [address] [place] [address] Lucrecia Morales [address] [place] [address] 03/31/2025 10:00 AM EDT Office Visit [facility] Recover [facility] [address] [place] [address] 04/02/2025 9:20 AM EDT Office Visit [facility] Interventional Pain Medicine [address] [place] [address] Ermias Taylor MD 2400 [facility] [address] [place] [address] 04/08/2025 3:40 PM EDT Procedure Visit [facility] [address] [place] [address] Gladys Mccarthy, DO [address] [place] [address] 04/13/2025 3:50 PM EDT Office Visit [facility] [address] [place] [address] Carlton Gaines, DO [address] [place] [address] 05/06/2025 3:40 PM EDT Procedure Visit [facility] [address] [place] [address] Gladys Mccarthy, DO [address] [place] [address] 06/03/2025 3:40 PM EST Procedure Visit [facility] [address] [place] [address] Gladys Mccarthy DO [address] [place] [address] 09/07/2025 7:30 AM EST Ovarian Cancer Screening [facility]ne[facility] [address] [place] [address] documented as of this encounter Visit Diagnoses Not on filedocumented in this encounter Additional Health Concerns Assessment Noted Time PHQ-9 Depression Total Score: 0 09/30/19 3:29 PM EDT A fall risk assessment has been complete d for the patient 12/17/2024 3:28 PM EDT A Body Mass Index follow-up plan has been documented for the patient 12/24/2024 9:56 AM EDT documented as of this encounter Care Teams Locomotive Crane Operator Helper Relationship Specialty Start Date End Date Julianna Freed PA [address] [place] [address] PCP - General 11/25/20 documented as of this encounter
--- OUTSIDE RECORDS SUMMARY | 2025-03-01 09:40 | XMS_ITS | Encounter Summary ---
Author Organization [facility] Address [address] [place] [address] Care Team Providers Care Vice President Of Nursing Name Role Phone Julianna Freed PA-C Primary Care Provide r Encounter Details Date Type Department Care Team (Latest Contact Info) Description 01/29/2025 Travel Social History Tobacco Use Types Packs/Day [...] 8:00 AM EDT Treatment [facility] PHYSICAL [facility] [address] [place] [address] [address] [place] [address] Sagar Soto, PT [address] [facility] [address] [place], [place] [id number] 03/10/2025 4:00 PM EDT Treatment [facility] PH[facility] [address] [facility] [address] [place] [address] Sagar Soto, PT [address] [facility] [address] [place], [place] [address] 03/29/2025 3:00 PM EDT Office Visit [facility] PRIMARY CARE [address] [place] [address] Julianna Freed PA-C [address] [place] [address] 03/31/2025 1:00 PM EDT Appointment [facility] NUCLEAR MEDICINE [address] [place] [phone] 04/05/2025 1:00 PM EDT Outside Facility Service [facility] GASTROENTEROLOGY [address] [facility] 302 [place] [phone] Daljit Wilson MD [address] [facility] [address] [place] [address] documented as of this encounter Visit Diagnoses Not on filedocumented in this encounter Care Teams Vice President Of Nursing Relationship Specialty Start Date End Date Julianna Freed PA-C [address] [place] [address] PCP - General Physician Press Operator Meat 07/17/18 documented as of this encounter
[2025-03-01 09:41] LABS: Adenovirus F 40/41, stool Not Detected (NotDetected); Clostridium Difficile A/B, PCR Not Detected (NotDetected); Cyclospora Cayetanesis Not Detected (NotDetected); Plesimonas Shigalloides, PCR Not Detected (NotDetected); Salmonella, PCR Not Detected (NotDetected); Shiga-like toxin E coli Not Detected (NotDetected); Shigella Enterovasive E coli Not Detected (NotDetected); Vibrio, PCR Not Detected (NotDetected); Yersinia Entercolitica, PCR Not Detected (NotDetected)
--- OUTSIDE RECORDS SUMMARY | 2025-03-01 09:41 | XMS_ITS | Encounter Summary ---
Author Organization [facility] Address [address] [place] [address] Care Team Providers Care Counselor Nurses' Association Name Role Phone Julianna Freed Primary Care [...] Description 03/05/2025 2:45 PM EDT Office Visit [facility] [address]3rd [place] [address] Janeen Vanegas [address] Jhoana Snell [facility] [address] [place] [address] 03/11/2025 1:00 PM EDT Procedure Visit [facility] [address] [place] [address] Gladys Mccarthy, DO [address] [place] [address] 03/12/2025 8:30 AM EDT Office Visit [facility] [address]3rd [place] [address] Janeen Vanegas [address] Jhoana Snell [facility] [address] [place] [address] 03/12/2025 10:30 AM EDT Office Visit [facility] [address]3rd [place] [address] Lucrecia Morales [address] [facility] Jhoana Snell [facility] [address] [place] [address] 03/31/2025 10:00 AM EDT Office Visit [facility] Recover Research [address] [place] [address] 04/02/2025 9:20 AM EDT Office Visit [facility] Interventional Pain Medicine [address] [facility] [place] [address] Ermias Taylor MD [address] [facility] [address] [place] [address] 04/08/2025 3:40 PM EDT Procedure Visit [facility] [address] [place] [address] Gladys Mccarthy, [address] [place] [address] 04/13/2025 3:50 PM EDT Office Visit [facility] [address] [place] [address] Carlton Gaines, DO [address] [place] [address] 05/06/2025 3:40 PM EDT Procedure Visit [facility] [address] [place] [address] Gladys Mccarthy, DO [address] [place] [address] 06/03/2025 3:40 PM EST Procedure Visit [facility] [address] [place] [address] Gladys Mccarthy, DO [address] [place] [address] 09/07/2025 7:30 AM EST Ovarian Cancer Screening [facility] [address] [facility], 3rd [place] [address] documented as of this encounter Visit Diagnoses [...] documented as of this encounter Care Teams Counselor Nurses' Association Relationship Specialty Start Date End Date Julianna Freed PA [address] [place] [address] PCP - General 11/25/20 documented as of this encounter
--- OUTSIDE RECORDS SUMMARY | 2025-03-01 09:41 | XMS_ITS | Encounter Summary ---
Author Organization [facility] Address [address] [place] [address] Care Team Providers Care Hospital Admitting Clerk Name Role Phone Julianna Freed Primary Care Provider Encounter Details Date Type Department Care Team (Latest Contact Info) Description 02/08/2025 Travel Social History Tobacco Use Types Packs/Day [...] Description 03/05/2025 2:45 PM EDT Office Visit [facility] [address]3rd [place] [address] Janeen Vanegas [address] Jhoana Snell [facility] [address] [place] [address] 03/11/2025 1:00 PM EDT Procedure Visit [facility] [address] [place] [address] Gladys Mccarthy, DO [address] [place] [address] 03/12/2025 8:30 AM EDT Office Visit [facility] [address]3rd [place] [address] Janeen Vanegas [address] Jhoana Snell [facility] [address] [place] [address] 03/12/2025 10:30 AM EDT Office Visit [facility] [address]3rd [place] [address] Lucrecia Morales 800 [facility] Jhoana Snell [facility] [address] [place] [address] 03/31/2025 10:00 AM EDT Office Visit [facility] Recover [facility] [address] [place] [address] 04/02/2025 9:20 AM EDT Office Visit [facility] Interventional Pain Medicine [address] [facility] [place] [address] Ermias Taylor MD [address] [facility] [address] [place] [address] 04/08/2025 3:40 PM EDT Procedure Visit [facility] [address] [place] [address] Gladys Mccarthy, [address] [place] [address] 04/13/2025 3:50 PM EDT Office Visit [facility] [address] [place] [address] Carlton Gaines, DO [address] [place] [address] 05/06/2025 3:40 PM EDT Procedure Visit [facility] [address] [place] [address] Gladys Mccarthy, DO [address] [place] [address] 06/03/2025 3:40 PM EST Procedure Visit [facility] [address] [place] [address] Gladys Mccarthy, DO [address] [place] [address] 09/07/2025 7:30 AM EST Ovarian Cancer Screening [facility] [address] [facility], 3rd [place] [address] documented as of this encounter Visit Diagnoses [...] documented as of this encounter Care Teams Hospital Admitting Clerk Relationship Specialty Start Date End Date Julianna Freed PA [address] [place] [address] PCP - General 11/25/20 documented as of this encounter
--- OUTSIDE RECORDS SUMMARY | 2025-03-01 09:41 | XMS_ITS | Encounter Summary ---
Author Organization [facility] Address [address] [place] [address] Care Team Providers Care Fence Machine Operator Name Role Phone Julianna Freed Primary Care Provider Reason for Visit * Reason Comments Med Refill Encounter Details Date Type Department Care Team (Late st Contact Info) Description 08/26/2023 Refill [facility] at [facility] [address] [place] [address] Mohan Hawthorne, DO [address] [place] [address] Cervical radiculopathy at C5 Social [...] encounter Miscellaneous Notes * Telephone Encounter - Teresita Vazquez - 08/26/2023 3:27 PM EST Rx pended documented in this encounter Plan of Treatment Upcoming Encounters Date Type Department Care Team (Late st Contact Info) Description 03/05/2025 2:45 PM EDT Office Visit [facility] HEALTH [address] [place] [address] Janeen Vanegas 800 [facility] Jhoana Snell [facility] [address] [place] [address] 03/11/2025 1:00 PM EDT Procedure Visit [facility] [address] [place] [address] Gladys Mccarthy DO [address] [place] [address] 03/12/2025 8:30 AM EDT Office Visit [facility] [address] [facility] [place] [address] Janeen Vanegas [address] [facility] Jhoana Snell [facility] [address] [place] [address] 03/12/2025 10:30 AM EDT Office Visit [facility] HEALTH [address] [facility] [place] [address] Lucrecia Morales 800 [facility] Alis [facility] [address] [place] [address] 03/31/2025 10:00 AM EDT Office Visit [facility] [address] [place] [address] 04/02/2025 9:20 AM EDT Office Visit [facility] Interventional Pain Medicine [address] [place] [address] Ermias Taylor MD [address] [facility] [address] [place] [address] 04/08/2025 3:40 PM EDT Procedure Visit [facility] [address] [place] [address] Gladys Mccarthy, DO [address] [place] [address] 04/13/2025 3:50 PM EDT Office Visit [facility] [address] [place] [address] Carlton Gaines, DO [address] [place] [address] 05/06/2025 3:40 PM EDT Procedure Visit [facility] [address] [facility] [place] [address] Gladys Mccarthy, DO [address] [place] [address] 06/03/2025 3:40 PM EST Procedure Visit [facility] [address] [place] [address] Gladys Mccarthy, DO [address] [place] [address] 09/07/2025 7:30 AM EST Ovarian Cancer Screening [facility] [address] [facility], 3rd [place] [address] documented as of this encounter Visit Diagnoses [...] documented as of this encounter Care Teams Fence Machine Operator Relationship Specialty Start Date End Date Julianna Freed PA [address] [facility] [address] [place] [address] PCP - General 11/25/20 documented as of this encounter
--- OUTSIDE RECORDS SUMMARY | 2025-03-01 09:41 | XMS_ITS | Encounter Summary ---
Author Organization [facility] Address [address] [place] [address] Care Team Providers Care Backup Administrative Coordinator Name Role Phone Julianna Freed PA-C Primary Care Provide r Encounter Details Date Type Department Care Team (Late st Contact Info) Description 12/14/2024 Results Follow-Up [facility] [address] D[facility] [address] [place] [phone] Brie Muñoz PA-C [address] [place] [address] Social History Tobacco Use Types Packs/Day Years [...] 03/03/2025 8:00 AM EDT Treatment [facility] PHYSICAL THERAPY [address] [place] [address] [address] [place] [address] Sagar Soto, PT [address] [facility] [address] [place] [address] 03/10/2025 4:00 PM EDT Treatment [facility] PHYSICAL THERAPY [address] [place] [address] [address] [place] [address] Sagar Soto, PT [address] [facility] [address] [place] [address] 03/29/2025 3:00 PM EDT Office Visit [facility] PRIMARY CARE [address] [place] [address] Julianna Freed PA-C [address] [place] [address] 03/31/2025 1:00 PM EDT Appointment [facility] NUCLEAR MEDICINE [address] [place] [address] 04/05/2025 1:00 PM EDT Outside Facility Service [facility] GASTROENTEROLOGY [address] [address] Daljit Wilson MD [address] [address] documented as of this encounter Visit Diagnoses Not on filedocumented in this encounter Care Teams Backup Administrative Coordinator Relationship Specialty Start Date End Date Julianna Freed PA-C [address] [place] [address] PCP - General Physician Facilities And Grounds Director 07/17/18 documented as of this encounter
--- OUTSIDE RECORDS SUMMARY | 2025-03-01 09:41 | XMS_ITS | Encounter Summary ---
Author Organization [facility] Address [address] [place] [address] Care Team Providers Care Arc Trimmer Name Role Phone Julianna Freed Primary Care Provider Encounter Details Date Type Department Care Team (Late st Contact Info) Description 02/22/2025 Orders Only External Location [address] [place] [address] Provider, External Social History Tobacco Use Types Packs/Day Years [...] Description 03/05/2025 2:45 PM EDT Office Visit [facility] INTE[facility]IVE MEDICINE AND HEALTH 800 [facility]3rd [place] [address] Janeen Vanegas 800 [facility] Jhoana Alis [facility] [place] [facility] [address] [place] [address] 03/11/2025 1:00 PM EDT Procedure Visit [facility] at [facility] [address] [place] [address] Gladys Mccarthy, [address] [place] [address] 03/12/2025 8:30 AM EDT Office Visit [facility] HEALTH [address] [place] [address] Janeen Vanegas [address] [facility] Alis [facility] [place] [facility] [address] [place] [address] 03/12/2025 10:30 AM EDT Office Visit [facility] HEALTH [address]3rd [place] [address] Lucrecia Morales [address] [place] [address] 03/31/2025 10:00 AM EDT Office Visit [facility] Recover Research [address] [place] [address] 04/02/2025 9:20 AM EDT Office Visit [facility] Interventional Pain Medicine [address] [facility] [place] [address] Ermias Taylor MD [address] [facility] [address] [place] [address] 04/08/2025 3:40 PM EDT Procedure Visit [facility] at [facility] [address] [place] [address] Gladys Mccarthy, [address] [place] [address] 04/13/2025 3:50 PM EDT Office Visit [facility] [address] [place] [place] [address] Carlton Gaines, DO [address] [place] [address] 05/06/2025 3:40 PM EDT Procedure Visit [facility] [address] [place] [address] Gladys Mccarthy, DO [address] [place] [address] 06/03/2025 3:40 PM EST Procedure Visit [facility] [address] [place] [address] Gladys Mccarthy, DO [address] [place] [address] 09/07/2025 7:30 AM EST Ovarian Cancer Screening [facility] Gynecology [address] 3rd [place] [address] documented as of this encounter Procedures Procedure Name Priority Date/Time Associated Diagnosis Comments POC ULTRASOUND 02/22/2025 documented in this encounter Results * POC Imaging (02/22/2025) Anatomical Region Laterality Modality Pelvis Other 02/22/2025 us External Provider IMG POINT OF CARE ULTRASOUND F inal Result documented in this encounter Visit Diagnoses Not on filedocumented [...] documented as of this encounter Care Teams Arc Trimmer Relationship Specialty Start Date End Date Julianna Freed PA [address] [place] [address] PCP - General 11/25/20 documented as of this encounter
--- OUTSIDE RECORDS SUMMARY | 2025-03-01 09:41 | XMS_ITS | Encounter Summary ---
Author Organization [facility] Address [address] [place] [address] Care Team Providers Care Funeral Home Attendant Name Role Phone Julianna Freed Primary Care Provider Reason for Visit * Reason Comments Med Refill Encounter Details Date Type Department Care Team (Late Contact Info) Description 10/27/2022 Refill [facility] [address] [place] [address] Mohan Hawthorne, DO [address] [place] [address] Cervical radiculopathy at C5 Social History Tobacco Use Types Packs/Day Years Used Date Smoking Tobacco: Never Smokeless Tobacco: Never Alcohol Use Standard Drinks/Week Comments Yes 0 (1 standard drink = 0.6 oz pure alcohol) Social drinker - less than 1 time per week PHQ-2 Answer Date Recorded Patient Health Questionnaire-2 Score 0 10/31/2022 Comments Unknown Sex and Gender Information Value Date Recorded Sex Assigned at Female 05/21/2021 5:57 PM EST Legal Sex Female 7:57 PM EDT Gender Identity Female 05/21/2021 5:57 PM EST Sexual Orientation Not on file COVID-19 Exposure Response Date Recorded In the last 10 days, have yo u been in contact with someone who was confirmed or suspected to have Coronavirus/COVID-19? No / Unsure 10/25/2022 12:13 PM EDT documented as of this encounter Plan of Treatment Upcoming Encounters Date Type Department Care Team (Late Contact Info) Description 03/05/2025 2:45 PM EDT Office Visit [facility] HEALTH [address] [facility] [place] [address] Janeen Vanegas 800 [facility] Jhoana Snell [facility] 306 [place] [address] 03/11/2025 1:00 PM EDT Procedure Visit [facility] at [facility] [address] [place] [address] Gladys Mccarthy DO [address] [place] [address] 03/12/2025 8:30 AM EDT Office Visit [facility] [address] [facility] [place] [address] Janeen Vanegas 800 [facility] Jhoana Snell [facility] 306 [place] [address] 03/12/2025 10:30 AM EDT Office Visit [facility] [address] [facility] [place] [address] Lucrecia Morales 800 [facility] Alis [facility] 306 [place] [address] 03/31/2025 10:00 AM EDT Office Visit [facility] Rec[facility] [address] [place] [address] 04/02/2025 9:20 AM EDT Office Visit [facility] Interventional Pain Medicine [address] [facility] [place] [address] Ermias Taylor MD 2400 [facility] [address] [place] [address] 04/08/2025 3:40 PM EDT Procedure Visit [facility] at [facility] [address] [place] [address] Gladys Mccarthy, DO [address] [place] [address] 04/13/2025 3:50 PM EDT Office Visit [facility] [address] [place] [address] Carlton Gaines, DO [address] [place] [address] 05/06/2025 3:40 PM EDT Procedure Visit [facility] [address] [place] [address] Gladys Mccarthy, DO [address] [place] [address] 06/03/2025 3:40 PM EST Procedure Visit [facility] [address] [place] [address] Gladys Mccarthy, DO [address] [place] [address] 09/07/2025 7:30 AM EST Ovarian Cancer Screening [facility] Gynecology 800 [facility], 3rd [place] [address] documented as of this encounter Visit Diagnoses Diagnosis Cervical radiculopathy at C5 documented in this encounter Additional Health Concerns Infection Onset Date Last Indicated Resolved Time COVID-19 Rule-Out 06/29/2023 06/29/2023 06/29/2023 9:02 PM EST COVID 19 (Confirmed) 06/29/2023 06/29/2023 024 5:23 AM EST Influenza 08/31/2024 08/31/2024 09/28/2024 9:53 PM EDT COVID-19 Rule-Out 11/12/2024 11/12/2024 11/12/2024 11:30 AM EDT COVID 19 (Confirmed) 11/12/2024 11/12/2024 025 9:54 PM EDT Assessment Noted Time A fall risk assessment has been complete d for the patient 10/22/2022 8:39 AM EDT A Body Mass Index follow-up plan has been documented for the patient 10/23/2022 6:24 PM EDT documented as of this encounter Care Teams Funeral Home Attendant Relationship Specialty Start Date End Date Julianna Freed PA [address] [facility] [address] [place] [address] PCP - General 11/25/20 documented as of this encounter
--- OUTSIDE RECORDS SUMMARY | 2025-03-01 09:41 | XMS_ITS | Referral Summary ---
Author Organization [employer] ([place], [place], [place], [place]) Address [address] [place] [address] Care Team Providers Care Lab Pack Chemist Name Role Phone Adry Garnica MD Primary Care Provider [phone] Social History Tobacco Use Types Packs/Day Years Used Date Smoking Tobacco: Never Assessed Family and Community Support Answer Keenan e Recorded Help with Day to Day Activities Not on file 08/02/2023 Feeling Lonely or Isolated Not on file 08/02 Educational Attainment Answer Date Noah rded Speak language other than Kinyarwanda at home Not on file 08/02/2023 Want help with school or training Not on file 08/02/2023 Substance Use Answer Date Recorded Used prescription meds for non-medical reasons N ot on file 08/02/2023 Used illegal drugs past 12 months Not on file 08/02/2023 Comments Unknown Sex and Gender Information Value Date Recorded Sex Assigned at Not on file Legal Sex Female 6:21 PM CDT Gender Identity Not on file Sexual Orientation Not on file Plan of Treatment Upcoming Encounters Date Type Department Care Team (Late st Contact Info) Description 05/07/2025 7:30 AM EDT Appointment [address] [place] [address] Procedures Procedure Name Priority Date/Time Associated Diagnosis Comments MM DIGITAL MAMMO SCREEN WITH EDVIN BILATERAL Routine 05/04/2024 8:00 AM EDT Visit for screening mammogram from Last 3 Months or Most Recently Relevant to Health Maintenance Results * MM digital mammo screen with edvin bilateral (05/04/2024 8:00 AM EDT) Anatomical Region Laterality Modality Breast Bilateral Mammography 05/05/2024 8:03 PM EDT Impressions 05/05/2024 8:06 PM EDT No mammographic evidence of malignancy. BI-RADS CATEGORY: 2 , BENIGN FINDING(S). RECOMMENDED FOLLOW-UP: Routine annual screening mammography. A letter including results and recommendations was sent to the patient. Density notification was provided as well. Patient information entered into a reminder system with a target due date for the next mammogram. At our facility, a noorvik marker is positioned over a visible skin lesion and a linear marker is used to indicate a scar. A triangular marker is placed on a self reported palpable finding. Mammography does not detect approximately 10-15% of breast cancers. An annual clinical breast exam by the patient's breast care physician and regular monthly self breast exams by the patient are integral parts of breast cancer screening. A normal mammogram does not completely exclude the presence of breast cancer, especially if there is an abnormal finding on physical exam. When clinically indicated, a biopsy should not be deferred because of a normal mammogram report. : 1970 Images reviewed, interpreted, and dictated by Cony Ballesteros MD Narrative 05/05/2024 8:06 PM EDT BILATERAL SCREENING DIGITAL MAMMOGRAPHY CLINICAL INDICATION: Routine screening weak family history of breast cancer.. TECHNIQUE: Bilateral CC, exaggerated CC and MLO views were obtained with 2-D and 3D digital acquisitions. The study was read with the assistance of CAD. COMPARISON: Previous studies back to February 17, 2021. FINDINGS: No suspicious mass, calcifications or architectural distortion is seen. Breast parenchyma demonstrates scattered fibroglandular densities bilaterally. No change identified. Adry Garnica MD IM MAMMOGRAPHY ORDERABLES F inal Result from Last 3 Months or Most Recently Relevant to Health Maintenance Insurance BLUE CROSS/BLUE SHIELD Care Teams Lab Pack Chemist Relationship Specialty Start Date End Date Adry Garnica MD [address] [facility] [address] [place] [address] PCP - General Obstetrics and Gynecology 04/29/23
--- OUTSIDE RECORDS SUMMARY | 2025-03-01 09:41 | XMS_ITS | Encounter Summary ---
Author Organization [employer] ([place], [place], [place], [place]) Address [address] [place] [address] Care Team Providers Care Construction Site Crossing Guard Name Role Phone Adry Garnica MD Primary Care Provider [phone] Reason for Referral * Mammography (Routine) - Authorized Specialty Diagnoses / Procedures Referred By Contac t Referred To Contact Radiology Diagnoses Visit for screening mammogram Procedures MM digital mammo screen with owen bilateral Adry Garnica MD [address] [facility] [place] [facility] [address] [place] [address] Phone: tel: fax: [address] [place] [address] Phone: tel: fax: Referral ID Status Reason Start Date Expiration Date V isits Requested Visits Authorized [id number] Authorized 05/07/2025 05/07/2026 1 1 Encounter Details Date Type Department Care Team (Late st Contact Info) Description 05/04/2024 Outside Orders [address] [place] [address] Adry Garnica MD [address] [facility] [place] [facility] [address] [place] [id number] Visit for screening mammogram (Primary Dx) Social History Tobacco Use Types Packs/Day Years Used Date Smoking Tobacco: Never Assessed Family and Community Support Answer Keenna e Recorded Help with Day to Day Activities Not on file 08/02/2023 Feeling Lonely or Isolated Not on file 08/02 Educational Attainment Answer Date Noah rded Speak language other than Yak[place] at home Not on file 08/02/2023 Want [...] on file Sexual Orientation Not on file documented as of this encounter Plan of Treatment Upcoming Encounters Date Type Department Care Team (Late st Contact Info) Description 05/07/2025 7:30 AM EDT Appointment [address] [place] [address] Scheduled Orders Name Type Priority Associated Diagnoses Orde r Schedule MM digital mammo screen with owen bilateral Imaging Routine Visit for screening mammogram Expected: 05/07/2025, Expires: 05/07/2026 documented as of this encounter Visit Diagnoses Diagnosis Visit for screening mammogram- Primary documented in this encounter Care Teams Construction Site Crossing Guard Relationship Specialty Start Date End Date Adry Garnica MD [address] [facility] [address] [place] [address] PCP - General Obstetrics and Gynecology 04/29/23 documented as of this encounter
--- OUTSIDE RECORDS SUMMARY | 2025-03-01 09:41 | XMS_ITS | Encounter Summary ---
Author Organization [facility] Address [address] [place] [address] Care Team Providers Care Tile Decorator Name Role Phone Julianna Freed PA-C Primary Care Provide r Encounter Details Date Type Department Care Team (Latest Contact Info) Description 12/31/2024 Travel Social History Tobacco Use Types Packs/Day [...] Info) Description 03/03/2025 8:00 AM EDT Treatment [facility] [address] [place] [address] [address] [place] [address] Sagar Soto, PT [address] [facility] [address] [place], [place] [id number] 03/10/2025 4:00 PM EDT Treatment [facility] [address] [facility] [address] [place] [address] Sagar Soto, PT [address] [facility] [address] [place], [place] [id number] 03/29/2025 3:00 PM EDT Office Visit [facility] [address] [place] [phone] Julianna Freed PA-C [address] [place] [address] 03/31/2025 1:00 PM EDT Appointment [facility] [address] [place] [id number] 04/05/2025 1:00 PM EDT Outside Facility Service [facility] [address] [facility] [address] [place] [id number] Daljit Wilson MD [address] [facility] [address] [place] [address] documented as of this encounter Visit Diagnoses Not on filedocumented in this encounter Care Teams Tile Decorator Relationship Specialty Start Date End Date Julianna Freed PA-C [address] [place] [address] PCP - General Physician Block Cleaner 07/17/18 documented as of this encounter
--- OUTSIDE RECORDS SUMMARY | 2025-03-01 09:41 | XMS_ITS | Clinical Summary ---
Author Organization [facility] Address [address] [place] [address] Care Team Providers Care Electroencephalographic Technologist Name Role Phone Julianna Freed Primary Care Provider Allergies No known active allergies Medications montelukast (Singulair) 10 MG tablet Take 1 tablet (10 mg) by mouth. 2 Active Adalimumab (Humira Pen) 40 MG/0.4ML Pen-injector Kit Inject 0.4 mL (40 mg) under the skin once a week. 1 Active fexofenadine (Teresa) 180 MG tablet Take 1 tablet (180 mg) by mouth daily. 2 Active Gel Base gel 2 g if needed. 2 Active ketoconazole (NIZOral) 2 % shampoo 1 Application as needed. 1 Active Probiotic, Lactobacillus, capsule Active nabumetone (Relafen) 750 MG tablet Take 1 tablet (750 mg) by mouth every 12 (twelve) hours. 2 Active amLODIPine (Norvasc) 5 MG tablet Take 1 tablet (5 mg) by mouth daily. 3 Active FLUoxetine (PROzac) 20 MG capsule Take 1 capsule (20 mg) by mouth as needed. 3 Active methocarbamol (Robaxin) 500 MG tabletIndications :Cervical radiculopathy at C5 TAKE 1 TO 1 AND 1/2 TABLETS BY MOUTH UP TO 3 TIMES A DAY NEEDED FOR MUSCLE SPASMS/TIGHTNES S 90 tablet 4 Active rosuvastatin (Crestor) 10 MG tablet Take 1 tablet (10 mg) by mouth 1 (one) time each day. 4 Active Wegovy 1.7 MG/0.75ML solution auto-injector 4 Active Wegovy 2.4 MG/0.75ML solution auto-injector Inject 2.4 mg under the skin into the appropriate area as directed Every 7 (Seven) Days. 4 Active tretinoin (Retin-A) 0.025 % cream APPLY A PEA SIZED AMOUNT TO THE AFFECTED AREA(S) BY TOPICAL ROUTE ONCE DAILY AT BEDTIME 4 Active losartan (Cozaar) 50 MG tablet 50 mg Active Bacillus Coagulans-Inulin (Probiotic) 1-250 BILLION-MG capsule Active lidocaine (Xylocaine) 5 % ointment Apply to back 2-3x daily as needed for pain 50 g 2 5 Active albuterol 108 (90 Base) MCG/ACT inhalerIndication s:Cough, unspecified type Inhale 2 puffs every 4 (four) hours as needed for wheezing or shortness of breath. 1 each 1 5 Active methylPREDNISolon e (Medrol Dospak) 4 MG tabletsIndication s:Acute bronchitis, unspecified organism Take as directed on package. 21 tablet 5 Active Additional Information Patient not taking.Reported on 02/22/2025 nirmatrelvir & ritonavir 300/100 (Paxlovid) Oral Therapy PackIndications:C OVID-19 Take 3 tablets by mouth 2 times a day. Take as directed by medication packaging 30 tablet 5 Active Additional Information Patient not taking.Reported on 02/22/2025 promethazine-dext romethorphan (Phenergan-DM) 6.25-15 MG/5ML syrupIndications: COVID-19 Take 5 mL by mouth nightly. 120 mL 5 Active Additional Information Patient not taking.Reported on 02/22/2025 pantoprazole (Protonix) 40 MG EC tablet Take 1 tablet by mouth 1 time each day. 5 Active FLUoxetine (PROzac) 10 MG capsule TAKE 1 CAPSULE BY MOUTH EVERY DAY (TAKE WITH 20MG DOSE FOR 30MG DAILY TOTAL) Active Hospital, Clinic, or Other Facility Administered Medication Ordered Dose Route Frequency Start Date End Date Status triamcinolone acetonide (Kenalog-40) injection 40 mgIndications:Greater trochanteric bursitis of left hip 40 mg IX Once 09/14/2022 Active lidocaine (Xylocaine) 1 % injection 2 mLIndications:Greater trochanteric bursitis of left hip 2 mL IJ Once 09/14/2022 Active bupivacaine PF (Marcaine) 0.25 % injection 5 mgIndications:Greater trochanteric bursitis of left hip 5 mg IJ Once 09/14/2022 Active sodium chloride 0.9 % flush 10 mLIndications:Spondylosis of cervical 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 radiculopathy 10 mL IV As needed 06/22/2024 Active sodium chloride 0.9 % flush 10 mLIndications:Spondylosis of cervical 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 radiculopathy 10 mL IV As needed 06/22/2024 Active sodium chloride 0.9 % flush 10 mLIndications:Spondylosis of cervical 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 radiculopathy 10 mL IV As needed 02/22/2025 Active fentaNYL (Sublimaze) injection 50 mcgIndications:Spondylosis of cervical 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 radiculopathy 50 mcg IV Once 02/22/2025 Active midazolam (Versed) injection 2 mgIndications:Spondylosis of cervical 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 radiculopathy 2 mg IV Once 02/22/2025 Active lidocaine PF (Xylocaine) 1 % injection 300 mgIndications:Spondylosis of cervical 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 radiculopathy 300 mg IJ Once 02/22/2025 02/23/20 25 Ended sodium bicarbonate 8.4 % injection 50 mEqIndications:Spondylosis of cervical 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 radiculopathy 50 mEq SC Once 02/22/2025 02/23/20 25 Ended bupivacaine PF (Marcaine) 0.25 % injection 25 mgIndications:Spondylosis of cervical 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 radiculopathy 25 mg IJ Once 02/22/2025 02/23/20 25 Ended midazolam (Versed) injection 2 mgIndications:Spondylosis of cervical 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 radiculopathy 2 mg IV Once 02/22/2025 02/23/20 25 Ended fentaNYL (Sublimaze) injection 50 mcgIndications:Spondylosis of cervical 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 radiculopathy 50 mcg IV Once 02/22/2025 02/23/20 25 Ended Active Problems Problem Noted Date Diagnosed Date Pelvic floor dysfunction in female 04/13/2024 Assessment & Plan (12/25/2024 11:00 PM EDT): Orders: Inject Trigger Points, >3; Future Primary osteoarthritis of both knees 11/28/2023 Laryngitis, acute 07/10/2023 Anxiety 01/25/2023 Obesity (BMI 30.0-34.9) 01/25/2023 Cervical radicular pain 07/19/2022 Cervical spondylosis 07/19/2022 Cervical radiculopathy at C6 04/30/2022 Piriformis muscle pain 04/30/2022 Impaired glucose tolerance 01/17/2022 Mixed hyperlipidemia 01/17/2022 Seasonal allergies 01/17/2022 Lumbar discogenic pain syndrome 11/14/2021 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 11/09/2021 Degeneration of lumbar or lumbosacral interverte bral disc 11/09/2021 Lumbar radiculopathy 11/09/2021 Assessment & Plan (12/25/2024 11:00 PM EDT): Chronic left-sided low back pain with left-sided sciatica 10/13/2021 Assessment & Plan (12/25/2024 11:00 PM EDT): Orders: Inject Trigger Points, >3; Future Chronic pain of left knee 12/09/2019 Assessment & Plan (12/25/2024 11:00 PM EDT): Gastroesophageal reflux disease without esophagi tis 04/27/2019 Functional disorder of intestine 10/24/2018 Menorrhagia 10/24/2018 Essential hypertension 07/17/2018 Psoriatic arthritis 02/01/2004 Encounters Date Type Department Care Team Description 02/22/2025 9:00 AM EDT Procedure Visit [facility] Interventional Pain Medicine [address] [place] [address] Ermias Taylor MD Spondylosis of cervical 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 radiculopathy 02/22/2025 Orders Only External Location [address] [place] [address] Provider, External 02/22/2025 Travel 02/08/2025 8:00 AM EDT Office Visit [facility] [address] [address] Forest Liu Neck pain (Primary Dx); Right upper quadrant abdominal pain 02/08/2025 Travel 01/29/2025 2:45 PM EDT Office Visit [facility] [address] [address] Janeen Vanegas 01/29/2025 Travel 01/28/2025 8:20 AM EDT Office Visit [facility] Interventional Pain Medicine [address] [place] [address] Ermias Taylor MD Spondylosis of cervical 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 radiculopathy (Primary Dx) 01/28/2025 Travel 01/27/2025 Telephone [facility] Inter[facility] Pain Medicine [address] [place] [address] Ermias Taylor MD HCN - Patient Message 12/24/2024 9:45 AM EDT Office Visit [facility] [address] [place] [phone] Forest Liu Neck pain (Primary Dx); Bilateral shoulder pain, unspecified chronicity 12/24/2024 8:30 AM EDT Office Visit [facility] [address] [address] Jodee Toure 12/24/2024 Travel 12/17/2024 3:00 PM EDT Procedure Visit [facility] [address] [place] [phone] Gladys Mccarthy F, DO Somatic dysfunction of pelvis region (Primary Dx); Somatic dysfunction of lower extremity; Somatic dysfunction of sacral region; Somatic dysfunction of abdominal region; Myofascial pain; Pelvic floor dysfunction in female; Urinary urgency; Chronic left-sided low back pain with left-sided sciatica; Lumbar radiculopathy; Chronic pain of left knee; Pelvic pain; Trigger point 12/17/2024 Travel 12/03/2024 9:45 AM EDT Office Visit [facility] [employer] [facility] [address] [address] AlexaForest Chronic bilateral low back pain with left-sided sciatica (Primary Dx); Neck pain 12/03/2024 8:30 AM EDT Office Visit [facility] [employer] MEDICINE [facility] [address] [address] Jodee Toure 12/03/2024 Travel 12/01/2024 8:30 AM EDT Clinical Support [facility] [address] [place] [address] Ronny Nieves Research subject (Primary Dx) 12/01/2024 Travel from Last 3 Months Immunizations Immunization Administration Dates Next Due Hep A, Adult 06/22/2020,08/20/2018 HepB-CpG 08/13/2022,06/14/2022 Influenza, Unspecified 04/14/2024,04/06/2019, Influenza, injectable, MDCK, preservative free, quadrivalent 04/03/2023 Influenza, injectable, quadr ivalent, preservative free 04/10/2022 Influenza, seasonal, injectable 03/28/2021 Moderna Covid-19 Vaccine 12y +, Torin Protein, Preservative free 06/02/2023 Ziptronix COVID-19 Vac cine (Purple Cap) 12+ 07/28/2020 Pneumococcal 20-caryl Conj Vaccine 06/12/2024 Pneumococcal Polysaccharide PPV23 08/20/2018 Td (adult), unspecified 10/16/2016 Tdap 01/17/2022 Family History Medical History Relation Name Comments Autoimmune disease Father Thien Weber Relation Name Status Comments Father Thien Weber Social History Tobacco Use Types Packs/Day Years [...] PM EST Sexual Orientation Not on file Last Filed Vital Signs Vital Sign Reading [...] Mass Index 34.57 02/22/2025 8:55 AM EDT Plan of Treatment Upcoming Encounters Date Type Department Care Team (Late st Contact Info) Description 03/05/2025 2:45 PM EDT Office Visit [facility] [address] [facility] [place] [address] Janeen Vanegas [address] [facility] [address] [place] [address] 03/11/2025 1:00 PM EDT Procedure Visit [facility] [address] [place] [address] Gladys Mccarthy DO [address] [place] [address] 03/12/2025 8:30 AM EDT Office Visit [facility] [address] [facility] [place] [phone] Janeen Vanegas [address] [place] [address] 03/12/2025 10:30 AM EDT Office Visit [facility] [address] [place] [address] Lucrecia Morales [address] [place] [address] 03/31/2025 10:00 AM EDT Office Visit [facility] [address] [place] [address] 04/02/2025 9:20 AM EDT Office Visit [facility] Interventional Pain Medicine [address] [facility] [place] [address] Ermias Taylor MD [address] [facility] [address] [place] [address] 04/08/2025 3:40 PM EDT Procedure Visit [facility] [address] [place] [address] Gladys Mccarthy, DO [address] [place] [address] 04/13/2025 3:50 PM EDT Office Visit [facility] [address] [place] [address] Carlton Gaines, DO [address] [place] [address] 05/06/2025 3:40 PM EDT Procedure Visit [facility] [address] [place] [address] Gladys Mccarthy, DO [address] [facility] [place] [address] 06/03/2025 3:40 PM EST Procedure Visit [facility] [address] [place] [address] Gladys Mccarthy, DO [address] [place] [address] 09/07/2025 7:30 AM EST Ovarian Cancer Screening [facility] [address] [place] [phone] Health Maintenance Due Date Last Done Comments [facility]-HIV Screening 1971 [facility]-Infant/Child/Adol SDOH Screenings 1971 [facility]- SDOH Screenings 12/07/1989 [facility]-Adult SDOH Screenings 12/07/1989 [facility]-Pap Smear 12/07/1992 [facility]-Cervical Cancer Screening 12/07/2001 [facility]-HPV/Cotest 12/07/2001 CT Colonography 12/07/2016 Colonoscopy 12/07/2016 [facility]-DNA 12/07/2016 FIT 12/07/2016 FOBT 12/07/2016 Sigmoidoscopy 12/07/2016 [facility]-Colorectal Cancer Screening 12/07/2016 [facility]-Zoster Vaccines (1 of 2) 12/07/2021 [id number] Vaccine ( season) 2024 06/02/2023, 04/10/2022, 02/25/2021, Additional history exists [facility]-Influenza Vaccine (#1) 03/15/202504/14, 04/03/2023, 04/10/2022, Additional history exists [facility]-Depression Screening 12/17/2025 025, 09/29/2024, 06/29/2023 [facility]-Breast Cancer Screening 05/04/202604/15, 05/04/2024, 04/29/2023, Additional history exists [facility]-DTaP,Tdap,and Td Vaccines (2 - Td or Tdap) 01/18/2032 01/17/2022, 10/16/2016 [facility]-Hepatitis C Screening Completed 12/09/2019 [facility]-Hepatitis A Vaccines Aged Out 06/22/2020, 12/2018 No longer eligible based on patient's age to complete this topic [facility]-Hepatitis B Vaccines Completed 08/13/2022, 07/2021 [facility]-Pneumococcal Vaccine: 50+ Years Completed 06/12/2024, 08/20/2018 [facility]-Diabetes: Hemoglobin A1C Discontinued 10/21/2024, 08/10/2024, 12/02/2023, Additional history exists [facility]-Obesity Intervention Completed 025, 02/08/2025, 01/29/2025, Additional history exists HPV Vaccines Aged Out No longer eligi ble based on patient's age to complete this topic [facility]-HIB Vaccines Aged Out No longer e ligible based on patient's age to complete this topic [facility]-IPV Vaccines Aged Out No longer e ligible based on patient's age to complete this topic [facility]-Rotavirus Vaccines Aged Out No lo nger eligible based on patient's age to complete this topic Procedures Procedure Name Priority Date/Time Associated Diagnosis Comments PBPROC Routine 02/22/2025 9:00 AM EDT Spondylosis of cervical 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 radiculopathy IVP NURSE PROCEDURE PROTOCOL Routine 02/22/2025 9:00 AM EDT HI DSTR NROLYTC AGNT PARVERTEB FCT ADDL CRVCL/THORA Routine 02/22/2025 9:00 AM EDT Spondylosis of cervical 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 radiculopathy HI DSTR NROLYTC AGNT PARVERTEB FCT ADDL CRVCL/THORA Routine 02/22/2025 9:00 AM EDT Spondylosis of cervical 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 radiculopathy HI DSTR NROLYTC AGNT PARVERTEB FCT SNGL CRVCL/THORA Routine 02/22/2025 9:00 AM EDT Spondylosis of cervical 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 radiculopathy POC ULTRASOUND 02/22/2025 HEMOGLOBIN A1C Routine 10/21/2024 10:50 AM EDT Research subject from Last 3 Months or Most Recently Relevant to Health Maintenance Results * Interventional Pain Nurse Procedure Protocol (02/22/2025 9:00 AM EDT) Narrative Lacy Whittaker Jaylyn - 02/22/2025 9:00 AM EDT HelenaLacy estrella 02/22/2025 1:02 PM Interventional Pain Nurse Procedure Protocol Documentation: Indications: Documentation supporting primary procedure completed by : Ermias Taylor MD See the provider procedure note for performed procedure details and findings. Pre-Procedure Checklist: Currently taking anticoagulant(s)?: no NPO since:: 02/21/2025 8:04 PM Stitch Burnisher present?: yes (Ravi) Additional Pre-Procedure Comments: Cerv. RFTC A timeout was called immediately prior to the procedure, in accordance with [employer] policy @ 0922 by DK Procedure details: [...] felt ready for d/c and w/c to pharmacy delivery driver @ 1017 Ermias Taylor MD IN CLINIC/BEDSIDE ORDERABLES Final Result * HI DSTR NROLYTC AGNT PARVERTEB FCT SNGL CRVCL/THORA, HI DSTR NROLYTC AGNT PARVERTEB FCT ADDL CRVCL/THORA, HI DSTR NROLYTC AGNT PARVERTEB FCT ADDL CRVCL/THORA (02/22/2025 9:00 AM EDT) Ermias Henry MD - 02/22/2025 9:00 AM EDT Ermias Taylor MD 02/22/2025 1:01 PM RFA - Cervical / Thoracic Performed by: Denzel Bravo DO Authorized by: Ermias Taylor MD [place] Protocol: Time out was called immediately prior [...] facet Number of levels: 2 Laterality: Bilateral Ermias Taylor MD IN CLINIC/BEDSIDE ORDERABLES Final Result * Moderate Sedation (02/22/2025 9:00 AM EDT) Ermias Henry MD - 02/22/2025 9:00 AM EDT Ermias [...] MD IN CLINIC/BEDSIDE ORDERABLES Final Result * POC Imaging (02/22/2025) Anatomical Region Laterality Modality Pelvis Other 02/22/2025 us External Provider IMG POINT OF CARE ULTRASOUND F inal Result * Hemoglobin A1c (10/21/2024 10:50 AM EDT) Hemoglobin A1c 5.5 <5.7 % 10/21/2024 12:40 PM EDT [facility] Blood Venous blood specimen / Unknown Venipuncture / Unknown 10/21/2024 10:50 AM EDT 10/21/2024 10:50 AM EDT Narrative [facility] - 10/21/2024 12:40 PM EDT HA1C Interpretive Data: Diagnosis of Diabetes: Diabetic > or = 6.5% Pre-diabetic 5.7 to 6.4% Non-diabetic < or = 5.6% Glycemic Targets for Type I and Type II Diabetics: Non- Adults <7.0% Adults <6.0% Children and Adolescents <7.5% Source: [place] Diabetes Association. Standards of medical care in diabetes,2017. Diabetes Care.2017:40 (suppl 1):S1-S135. Camron Grullon MD LAB BLOOD ORDERABLES Fi nal Result [facility] [address] [place] [address] from Last 3 Months or Most Recently Relevant to Health Maintenance Insurance ANTH Care Teams Electroencephalographic Technologist Relationship Specialty Start Date End Date Julianna Freed PA [address] [place] [address] PCP - General 11/25/20
--- OUTSIDE RECORDS SUMMARY | 2025-03-01 09:41 | XMS_ITS | Encounter Summary ---
[facility] Address [address] [place] [address] Care Team Providers Care House Painter Name Role Phone Julianna Freed PA-C Primary Care Provide r Reason for Visit * Reason Comments Med Refill Encounter Details Date Type Department Care Team (Late st Contact Info) Description 06/22/[address] [facility] PRIMARY CARE [address] [place] [address] Julianna Freed PA-C [address] [place] [phone] Obesity (BMI 30.0-34.9) Social History Tobacco Use Types Packs/Day Years Used Date Smoking Tobacco: Never Passive Smoke Exposure: Never Smokeless Tobacco: Never Alcohol Use Standard Drinks/Week Comments Yes 1 (1 standard drink = 0.6 oz pure alcohol) On average I have less than 1 drink/week PHQ-2 Answer Date Recorded Retired PHQ-9: Brief Depression Severity Measure Score 0 01/25/2023 PHQ-2 Answer Date Recorded Retired PHQ-9: Brief Depression Severity Measure Score 0 09/02/2023 Comments No Sex and Gender Information Value Date Recorded Sex Assigned at Female 12/10/2024 10:23 AM EDT Legal Sex Female 11:40 AM EDT Gender Identity Not on file Sexual Orientation Not on file Travel History Travel Start Travel End [place] 02/03/2025 02/07/2025 documented as of this encounter Miscellaneous Notes * Telephone Encounter - No Bray MA - 06/24/2024 12:46 PM EST Rx Refill Note Requested Prescriptions Pending Prescriptions Disp Refills Wegovy 2.4 MG/0.75ML solution auto-injector [Pharmacy Med Name: Wegovy Subcutaneous Solution Auto-injector 2.4 MG/0.75ML] 9 mL 0 Sig: INJECT 2.4 MG UNDER THE SKIN DIRECTED EVERY 7 DAYS Last office visit with prescribing clinician: 02/10/2024 Last telemedicine visit with prescribing clinician: Visit date not found Next office visit with prescribing clinician: 07/16/2024 No Bray MA 06/24/24, 12:46 EST documented in this encounter Plan of Treatment Upcoming Encounters Date Type Department Care Team (Late st Contact Info) Description 03/03/2025 8:00 AM EDT Treatment [facility] PHYSICAL THERAPY [address] [place] [address] [address] [place] [address] Sagar Soto, PT [address] [facility] [address] [place] [address] 03/10/2025 4:00 PM EDT Treatment [facility] PHYSICAL THERAPY [address] [place] [address] [address] [place] [address] Sagar Soto, PT [address] [facility] [address] [place] [address] 03/29/2025 3:00 PM EDT Office Visit [facility] PRIMARY CARE [address] [place] [address] Julianna Freed PA-C [address] [place] [address] 03/31/2025 1:00 PM EDT Appointment [facility] NUCLEAR MEDICINE [address] [place] [address] 04/05/2025 1:00 PM EDT Outside Facility Service [facility] GASTROENTEROLOGY [address] [phone] Daljit Wilson MD [address] [address] documented as of this encounter Visit Diagnoses Diagnosis Obesity (BMI 30.0-34.9) documented in this encounter Care Teams House Painter Relationship Specialty Start Date End Date Julianna Freed PA-C [address] [place] [address] PCP - General Physician Shell Shop Supervisor 07/17/18 documented as of this encounter
--- OUTSIDE RECORDS SUMMARY | 2025-03-01 09:41 | XMS_ITS | Encounter Summary ---
[facility] [address] [place] [address] Care Team Providers Care Stevedoring Supervisor Name Role Phone Julianna Freed PA-C Primary Care Provide r Encounter Details Date Type Department Care Team (Late st Contact Info) Description 11/15/2021 Telephone [facility] PHYSICAL THERAPY [address] [place] [address] Mary Jackson, PT Social History Tobacco Use Types Packs/Day Years Used Date Smoking Tobacco: Never Smokeless Tobacco: Never Alcohol Use Standard Drinks/Week Comments Yes 1 (1 standard drink = 0.6 oz pure alcohol) On average I have less than 1 drink/week PHQ-2 Answer Date Recorded Retired PHQ-9: Brief Depression Severity Measure Score 0 11/14/2021 Comments No Sex and Gender Information Value [...] Info) Description 03/03/2025 8:00 AM EDT Treatment [facility]ICAL [facility] [address] [facility] [address] [place] [phone] Sagar Soto, PT [address] [facility] [address] [place] [address] 03/10/2025 4:00 PM EDT Treatment [facility] PHYSICAL THERAPY [address] [facility] [address] [place] [address] Saagr Soto, PT [address] [facility] [address] [place], [place] [id number] 03/29/2025 3:00 PM EDT Office Visit [facility] PRIMARY CARE [address] [place] [phone] Julianna Freed PA-C [address] [place] [address] 03/31/2025 1:00 PM EDT Appointment [facility] NUCLEAR MEDICINE [address] [place] [address] 04/05/2025 1:00 PM EDT Outside Facility Service [facility] GASTROENTEROLOGY [address] [facility] [address] [place] [address] Daljit Wilson MD [address] [facility] [address] [place] [address] documented as of this encounter Visit Diagnoses Not on filedocumented in this encounter Additional Health Concerns Infection Onset Date Last Indicated Resolved Time COVID (confirmed) 06/29/2023 06/29/2023 09/27/2023 9:08 PM EDT documented as of this encounter Care Teams Stevedoring Supervisor Relationship Specialty Start Date End Date Julianna Freed PA-C [address] [place] [address] PCP - General Physician Tire Stripper 07/17/18 documented as of this encounter
--- OUTSIDE RECORDS SUMMARY | 2025-03-01 09:41 | XMS_ITS | Encounter Summary ---
[facility] Address [address] [place] [address] Care Team Providers Care Furniture Sales Consultant Name Role Phone Julianna Freed PA-C Primary Care Provide r Reason for Visit * Reason Comments Med Refill Encounter Details Date Type Department Care Team (Late st Contact Info) Description 08/12/2023 Refill [facility] PRIMARY CARE [address] [place] [phone] Julianna Freed PA-C [address] [place] [phone] Obesity (BMI 30.0-34.9) Social History Tobacco Use [...] Brief Depression Severity Measure Score 0 01/25/2023 Comments No Sex and Gender Information Value Date Recorded Sex Assigned at Female 12/10/2024 10:23 AM EDT Legal Sex Female 11:40 AM EDT Gender Identity Not on file Sexual Orientation Not on file Travel History Travel Start Travel End [place] 02/03/2025 02/07/2025 documented as of this encounter Plan of Treatment Upcoming Encounters Date Type Department Care Team (Late st Contact Info) Description 03/03/2025 8:00 AM EDT Treatment [facility] PHYSICAL THERAPY [address] [place] [address] [address] [place] [phone] Sagar Soto, PT [address] [facility] [address] [place], [place] [id number] 03/10/2025 4:00 PM EDT Treatment [facility] PHYSICAL THERAPY [address] [place] [address] [address] [place] [address] Sagar Soto, PT [address] [facility] [address] [place], [place] [id number] 03/29/2025 3:00 PM EDT Office Visit [facility] PRIMARY CARE [address] [place] [phone] Julianna Freed PA-C [address] [place] [address] 03/31/2025 1:00 PM EDT Appointment [facility] NUCLEAR MEDICINE [address] [place] [phone] 04/05/2025 1:00 PM EDT Outside Facility Service [facility] GASTROENTEROLOGY [address] [phone] Daljit Wilson MD [address] [address] documented as of this encounter Visit Diagnoses Diagnosis Obesity (BMI 30.0-34.9) documented in this encounter Additional Health Concerns Infection Onset Date Last Indicated Resolved Time COVID (confirmed) 06/29/2023 06/29/2023 09/27/2023 9:08 PM EDT documented as of this encounter Care Teams Furniture Sales Consultant Relationship Specialty Start Date End Date Julianna Freed PA-C [address] [place] [address] PCP - General Physician Materials Planning Manager 07/17/18 documented as of this encounter
--- OUTSIDE RECORDS SUMMARY | 2025-03-01 09:41 | XMS_ITS | Encounter Summary ---
Author Organization [employer] ([place], [place], [place], [place]) Address [address] [place] [address] Care Team Providers Care Projection Printer Name Role Phone Adry Garnica MD Primary Care Provider [phone] Reason for Referral * Mammography (Routine) - Closed Specialty Diagnoses / Procedures Referred By Contac t Referred To Contact Diagnoses Visit for screening mammogram Procedures MM digital mammo screen with owen bilateral Adry Garnica MD [address] [address] Phone: tel: fax: Referral ID Status Reason Start Date Expiration Date Visits Re quested Visits Authorized [id number] Closed 03/11/2023 09/07/2023 1 1 Encounter Details Date Type Department Care Team (Late st Contact Info) Description 03/11/2023 Outside Orders [facility] Central Scheduling [address] [place] [address] Adry Garnica MD [address] [place] [address] Visit for screening mammogram (Primary Dx) Social History Tobacco Use Types Packs/Day Years Used Date Smoking Tobacco: Never Assessed Family and Community Support Answer Keenan e Recorded Help with Day to Day Activities Not on file 08/02/2023 Feeling Lonely or Isolated Not on file 08/02 Educational Attainment Answer Date Noah rded Speak language other than Portuguese at home Not on file 08/02/2023 Want [...] Info) Description 05/07/2025 7:30 AM EDT Appointment [address] [address] documented as of this encounter Results * MM digital mammo screen with owen bilateral (04/29/2023 8:00 AM EDT) Anatomical Region Laterality Modality Breast Bilateral Mammography 04/29/2023 9:21 AM EDT Impressions 04/29/2023 9:24 AM EDT FINAL IMPRESSION: Stable mammogram. No findings suspicious for malignancy. Bi-RADS: ACR BI-RADS 1: Negative. RECOMMENDATIONS: Annual screening mammography. A letter including results and recommendations was sent to the patient. Density notification was included for patients with pattern 3 or 4 breast tissue. Patient information was entered into a reminder system with a target due date for the next mammogram. At our facility, a rincon marker is positioned over a visible skin lesion and a linear marker is used to indicate a scar. A triangular marker is placed on a self reported palpable finding. Note: Mammography does not detect approximately 10-15% of breast cancers. An annual clinical breast exam by the patient's breast care physician and regular monthly self breast exams by the patient are integral parts of breast cancer screening, in addition to annual mammography. A normal mammogram does not completely exclude the presence of breast cancer, especially if there is an abnormal finding on physical exam. When clinically indicated, a biopsy should not be deferred because of a normal mammogram report. Narrative 04/29/2023 9:24 AM EDT 3[facility] PROCEDURE: Digital screening mammogram with Digital Breast Tomosynthesis (DBT). REASON FOR EXAM: Routine screening. FAMILY HISTORY: Weak family history of breast cancer. COMPARISON STUDY: 2021 through 2017 from [facility] FINDINGS: Craniocaudal and mediolateral oblique images of both breasts were obtained in 2D and DBT modes. Synthesized views were reconstructed from DBT data. The breast tissue has pattern b (scattered fibroglandular densities). There is no evidence of dominant mass, architectural distortion, or suspicious calcifications. The mammogram was interpreted with the benefit of computer aided detection (CAD). Adry Garnica MD IMG MAMMOGRAPHY ORDERABLES F inal Result documented in this encounter Visit Diagnoses Diagnosis Visit for screening mammogram- Primary Visit for screening mammogram documented in this encounter Care Teams Projection Printer Relationship Specialty Start Date End Date Adry Garnica MD [address] [address] PCP - General Obstetrics and Gynecology 04/29/23 documented as of this encounter
--- OUTSIDE RECORDS SUMMARY | 2025-03-01 09:41 | XMS_ITS | Encounter Summary ---
Author Organization [facility] Address [address] [place] [address] Care Team Providers Care Finisher Map And Chart Name Role Phone Julianna Freed PA-C Primary Care Provide r Encounter Details Date Type Department Care Team (Latest Contact Info) Description 01/04/2025 Travel Social History Tobacco Use Types Packs/Day [...] Info) Description 03/03/2025 8:00 AM EDT Treatment [facility] PHYSICAL THERAPY [address] [place] [address] [address] [place] [address] Sagar Soto, PT 3000 [facility] [address] [place], [place] [id number] 03/10/2025 4:00 PM EDT Treatment [facility] PHYSICAL THERAPY [address] [facility] [address] [place] [address] Sagar Soto, PT [address] [facility] [address] [place], [place] [id number] 03/29/2025 3:00 PM EDT Office Visit [facility] PRIMARY CARE [address] [place] [phone] Julianna Freed PA-C [address] [place] [address] 03/31/2025 1:00 PM EDT Appointment [facility] NUCLEAR MEDICINE [address] [place] [phone] 04/05/2025 1:00 PM EDT Outside Facility Service [facility] GASTROENTEROLOGY [address] [facility] [address] [place] [phone] Daljit Wilson MD [address] [facility] [address] [place] [address] documented as of this encounter Visit Diagnoses Not on filedocumented in this encounter Care Teams Finisher Map And Chart Relationship Specialty Start Date End Date Julianna Freed PA-C [address] [place] [address] PCP - General Physician Garden Labourer 07/17/18 documented as of this encounter
--- OUTSIDE RECORDS SUMMARY | 2025-03-01 09:41 | XMS_ITS | Encounter Summary ---
[facility] Organization [facility] Address [address] [place] [address] Care Team Providers Care Scrap Crusher Name Role Phone Julianna Freed PA-C Primary Care Provide r Encounter Details Date Type Department Care Team (Latest Contact Info) Description 01/12/2025 Travel Social History Tobacco Use Types Packs/Day [...] file Travel History Travel Start Travel End [place] 02/03/2025 02/07/2025 documented as of this encounter Plan of Treatment Upcoming Encounters Date Type Department Care Team (Late st Contact Info) Description 03/03/2025 8:00 AM EDT Treatment [facility] PHYSICAL THERAPY [address] [place] [address] [address] [place] [address] Sagar Soto, PT 3000 [facility] [address] [place], [place] [id number] 03/10/2025 4:00 PM EDT Treatment [facility] PHYSICAL THERAPY [address] [facility] [address] [place] [address] Sagar Soto, PT [address] [facility] [address] [place], [place] [id number] 03/29/2025 3:00 PM EDT Office Visit [facility] PRIMARY CARE [address] [place] [phone] Julianna Freed PA-C [address] [place] [address] 03/31/2025 1:00 PM EDT Appointment [facility] NUCLEAR MEDICINE [address] [place] [phone] 04/05/2025 1:00 PM EDT Outside Facility Service [facility] GASTROENTEROLOGY [address] [facility] [address] [place] [phone] Daljit Wilson MD [address] [facility] [address] [place] [address] documented as of this encounter Visit Diagnoses Not on filedocumented in this encounter Care Teams Scrap Crusher Relationship Specialty Start Date End Date Julianna Freed PA-C [address] [place] [address] PCP - General Physician Childhood Development Teacher 07/17/18 documented as of this encounter
--- OUTSIDE RECORDS SUMMARY | 2025-03-01 09:41 | XMS_ITS | Encounter Summary ---
[facility] Organization [facility] Address [address] [place] [address] Care Team Providers Care Estimator Binding Name Role Phone Julianna Freed PA-C Primary Care Provide r Reason for Visit * Reason Onset Date Comments Med Refill 02/27/2022 Encounter Details Date Type Department Care Team (Late st Contact Info) Description 02/27/2022 Refill [facility] MEDICAL [facility] PAIN MANAGEMENT [address] [place] [phone] Bill Bell MD [address] [place] [phone] Lumbar radiculopathy Social History Tobacco Use Types Packs/Day [...] file Travel History Travel Start Travel End [place] 02/03/2025 02/07/2025 documented as of this encounter Plan of Treatment Upcoming Encounters Date Type Department Care Team (Late st Contact Info) Description 03/03/2025 8:00 AM EDT Treatment [facility] PHYSICAL THERAPY [address] [place] [address] [address] [place] [address] Sagar Soto, PT 3000 [facility] [address] [place] [address] 03/10/2025 4:00 PM EDT Treatment [facility] PHYSICAL THERAPY [address] [place] [address] [address] [place] [phone] Sagar Soto, PT [address] [facility] [address] [place] [address] 03/29/2025 3:00 PM EDT Office Visit [facility] PRIMARY CARE [address] [place] [address] Julianna Freed PA-C [address] [place] [address] 03/31/2025 1:00 PM EDT Appointment [facility] NUCLEAR MEDICINE [address] [place] [address] 04/05/2025 1:00 PM EDT Outside Facility Service [facility] GASTROENTEROLOGY [address] [address] Daljit Wilson MD [address] [address] documented as of this encounter Visit Diagnoses Diagnosis Lumbar radiculopathy Thoracic or lumbosacral neuritis or radiculitis, unspecified documented in this encounter Additional Health Concerns Infection Onset Date Last Indicated Resolved Time COVID (confirmed) 06/29/2023 06/29/2023 09/27/2023 9:08 PM EDT documented as of this encounter Care Teams Estimator Binding Relationship Specialty Start Date End Date Julianna Freed PA-C [address] [place] [address] PCP - General Physician New Patient Escort 07/17/18 documented as of this encounter
--- OUTSIDE RECORDS SUMMARY | 2025-03-01 09:41 | XMS_ITS | Encounter Summary ---
[facility] Address [address] [place] [address] Care Team Providers Care Porcelain Mixer Name Role Phone Julianna Freed PA-C Primary Care Provide r Reason for Visit * Reason Onset Date Comments Med Refill 09/28/2024 Encounter Details Date Type Department Care Team (Late st Contact Info) Description 09/28/2024 Refill [facility] PRIMARY CARE [address] [place] [address] Julianna Freed PA-C [address] [place] [phone] Obesity (BMI 30.0-34.9) Social History Tobacco Use [...] Info) Description 03/03/2025 8:00 AM EDT Treatment [facility] PHYSICAL THERAPY [address] [place] [address] [address] [place] [phone] Sagar Soto, PT 3000 [facility] [address] [place], [place] [address] 03/10/2025 4:00 PM EDT Treatment [facility] PHYSICAL THERAPY [address] [place] [address] [address] [place] [address] Sagar Soto, PT [address] [facility] [address] [place], [place] [id number] 03/29/2025 3:00 PM EDT Office Visit [facility] PRIMARY CARE [address] [place] [phone] Julianna Freed PA-C [address] [place] [address] 03/31/2025 1:00 PM EDT Appointment [facility] NUCLEAR MEDICINE [address] [place] [phone] 04/05/2025 1:00 PM EDT Outside Facility Service [facility] [address] [facility] [phone] Daljit Wilson MD [address] [address] documented as of this encounter Visit Diagnoses Diagnosis Obesity (BMI 30.0-34.9) documented in this encounter Care Teams Porcelain Mixer Relationship Specialty Start Date End Date Julianna Freed PA-C [address] [place] [address] PCP - General Physician Crepe Sole Scourer 07/17/18 documented as of this encounter
--- OUTSIDE RECORDS SUMMARY | 2025-03-01 09:41 | XMS_ITS | Clinical Summary ---
Author Organization [facility] Address [address] [place] [address] Care Team Providers Care [employer] Sales Representative Name Role Phone Julianna Freed PA-C Primary Care Provide r Allergies No known active allergies Medications nabumetone (RELAFEN) 750 MG tablet 1 tablet Daily. 019 Active Probiotic Product (PROBIOTIC-10 ULTIMATE PO) Active ketoconazole (NIZORAL) 2 % shampoo Apply topically to the appropriate area as directed 2 (Two) Times a Week. 120 mL 11 022 Active hydrOXYzine (ATARAX) 25 MG tabletIndications :Anxiety Take 1 tablet by mouth 3 (Three) Times a Day As Needed for Anxiety. 30 tablet 2 023 Active fexofenadine (JUSTO) 180 MG tabletIndications :Seasonal allergies Take 1 tablet by mouth Daily. 90 tablet 023 Active lidocaine (XYLOCAINE) 5 % ointment APPLY TOPICALLY TO BACK 2 TO 3 TIMES A DAY NEEDED FOR PAIN Active Humira, 2 Pen, 40 MG/0.4ML Auto-injector Kit Inject 0.4 mL every week by subcutaneous route. 024 Active methocarbamol (ROBAXIN) 500 MG tabletIndications :Pain of left hip TAKE 2 TABLETS BY MOUTH AT NIGHT 180 tablet 025 Active desonide (DESOWEN) 0.05 % ointment Apply to the axilla BID x2 weeks, then take two week break 04/10/2 025 Active tretinoin (RETIN-A) 0.025 % cream APPLY A PEA SIZED AMOUNT TO THE AFFECTED AREA(S) BY TOPICAL ROUTE ONCE DAILY AT BEDTIME Active simethicone (MYLICON) 80 MG chewable tabletIndications :RUQ pain,Bloating Chew 1 tablet Every 6 (Six) Hours As Needed for Flatulence. 90 tablet 1 025 Active ondansetron (Zofran) 4 MG tabletIndications :RUQ pain,Nausea Take 1 tablet by mouth Every 8 (Eight) Hours As Needed for Nausea or Vomiting. 30 tablet 1 025 Active montelukast (SINGULAIR) 10 MG tabletIndications :Seasonal allergies Take 1 tablet by mouth every night at bedtime. 90 tablet 3 025 Active rosuvastatin (CRESTOR) 10 MG tabletIndications :Mixed hyperlipidemia Take 1 tablet by mouth Daily. 90 tablet 3 025 Active losartan (COZAAR) 50 MG tabletIndications :Essential hypertension Take 1 tablet by mouth Daily. 90 tablet 3 025 Active FLUoxetine (PROzac) 20 MG capsuleIndication s:Anxiety Take 1 capsule by mouth Daily. 90 capsule 3 025 Active FLUoxetine (PROzac) 10 MG capsuleIndication s:Anxiety Take 1 capsule by mouth Daily. 90 capsule 3 025 Active pantoprazole (Protonix) 40 MG EC tabletIndications :Epigastric pain Take 1 tablet by mouth Daily. 90 tablet 1 025 Active furosemide (Lasix) 40 MG tabletIndications :Leg swelling Take 1 tablet by mouth Daily for 3 days. 3 tablet 025 Active montelukast (SINGULAIR) 10 MG tabletIndications :Seasonal allergies TAKE 1 TABLET BY MOUTH AT BEDTIME 90 tablet 3 024 2024 Discontinued(R eorder) amLODIPine (NORVASC) 5 MG tabletIndications :Essential hypertension TAKE 1 TABLET BY MOUTH EVERY DAY 90 tablet 3 024 2024 Discontinued(R eorder) rosuvastatin (CRESTOR) 10 MG tabletIndications :Mixed hyperlipidemia TAKE 1 TABLET BY MOUTH EVERY DAY 90 tablet 3 024 2024 Discontinued(R eorder) FLUoxetine (PROzac) 20 MG capsuleIndication s:Anxiety Take 1 capsule by mouth Daily. 90 capsule 3 02/09/ 024 2024 Discontinued(R eorder) losartan (COZAAR) 50 MG tabletIndications :Essential hypertension Take 1 tablet by mouth Daily. 90 tablet 3 02/09/ 024 2024 Discontinued(R eorder) pantoprazole (Protonix) 20 MG EC tabletIndications :Epigastric pain Take 1 tablet by mouth Daily. 30 tablet 5 01/29/ 025 2024 Discontinued(R eorder) amLODIPine (NORVASC) 5 MG tabletIndications :Essential hypertension Take 1 tablet by mouth Daily. 90 tablet 3 025 2024 Discontinued Active Problems Problem Noted Date Diagnosed Date Pelvic floor dysfunction in female 04/13/2024 Primary osteoarthritis of both knees 11/28/2023 Assessment & Plan (11/28/2023 1:56 PM EDT): She had Zilretta April 18, 2020 and had a good response. Last imaging of bilateral knees in 2017 with mild osteoarthritis. Continue bracing She can continue topical Pennsaid Continue nabumetone 1-2 times daily as needed for joint pain. She can have steroid injections as needed. She will let us know if she is ready for these. If she requester requires gel injections we will refer to orthopedics. Immunodeficiency due to drug therapy 11/28/2023 Assessment & Plan (11/28/2023 1:56 PM EDT): Chrissyhardin weekly Q TB and hepatitis panel were - 07/02/2023. Hepatitis panel should be drawn every 5 years. Q TB is to be drawn yearly. She will need a CBC, CMP, ESR, and CRP every 6 months on current medications. Possible adverse effects with TNF inhibitors include serious infection, reactivation of latent TB, invasive fungal infections, bacterial infections, viral infections, and opportunistic infections. Other rare side effects include but are not limited to worsening of congestive heart failure, the risk of lymphoma and skin cancer, injection site reaction, drug-induced lupus, development of demyelinating disease. Laryngitis, acute 07/10/2023 Assessment & Plan (07/10/2023 9:37 AM EST): Discussed with patient that this is likely a result of her prolonged cough from COVID. With patient's cough improving just within the last 24 hours I would like to wait and see if she continues to improve. 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 Discussed that there are a lot of risks with taking oral steroids especially within a short time frame of her last prescription. Patient agreed and would like to wait to see if she continues to improve. -Recommend hot teas with honey, increase hydration, resting your voice and sleeping with a humidifier on in your room at night. I discussed with the patient that if she continues to experience a change in her voice after 3 to 4 weeks from her original date of infection that I recommend her coming into clinic to be reevaluated. Patient verbalized understanding and agreed to this plan. 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 [facility] show multilevel spondylosis, severe neuroforaminal narrowing on the left at L4-L5 and L5-S1, facet arthropathy, and mild disc bulging. Continue follow-up with PT and chiropractor. Continue following with pain management. Continue methocarbamol which is prescribed by an outside provider. She can continue cyclobenzaprine as needed before bed. Do not take at the same time as methocarbamol. Continue gabapentin for pain management. Continue to be Mattone as needed. Follow-up with Dr. 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 Chronic left-sided low back pain with left-sided sciatica 10/13/2021 Chronic pain of left knee 12/09/2019 Gastroesophageal reflux disease without esophagi tis 04/27/2019 Menorrhagia 12/26/2018 Functional disorder of intestine 10/24/2018 Menorrhagia with regular cycle 10/24/2018 Psoriatic arthritis 08/19/2018 Assessment & Plan (11/28/2023 2:56 PM EDT): She was diagnosed in 2004; she had dactylitis, resistant plantar fasciitis, peripheral synovitis, SI joint pain. Most recent x-rays have been in 2012 and hands in 2010 are normal without erosions, but with bilateral heel spurs. She has mild degenerative disc disease. Previous prescription diclofenac that caused elevated LFTs. Currently prescribed Hyrimoz 40 mg weekly, nabumetone as needed She was changed to Humira weekly and had 100% improvement at that time. She is being seen off schedule today virtually due to be scared to start Hyrimoz. She has tried a generic medication in the past. She developed hives at that time in 2014. She was allergic to the binder in the medication. She still has hives. She has been on name brand Humira for 20 years without any problems. The binder she had a reaction to is unknown. Hives are generally arms and center of her back. She also has hives on neck and face at time. We will PA Humira as we do know what binder she developed hives to. Humira will need to be weekly. Continue nabumetone as needed. She is a former patient of Dr. Muñoz and has a follow-up next month with Dr. Shaw that she will keep. Lab order to be mailed to patient. Today I reviewed labs that were drawn on July 12, 2023. These labs were stable. Essential hypertension 07/17/2018 Encounters Date Type Department Care Team Description 02/13/2025 Results Follow-Up [facility] [address] [place] [address] Julianna Freed PA-C 02/10/2025 9:05 AM EDT Lab [facility] [facility] [address] [place] [address] Hepatic steatosis 02/10/2025 8:00 AM EDT Office Visit [facility] [address] [place] [phone] Julianna Freed PA-C Physical exam, annual (Primary Dx); Anxiety; Essential hypertension; Leg swelling; Hepatic steatosis; RUQ pain; Epigastric pain; Abdominal pain, RLQ; Gastroesophageal reflux disease without esophagitis; Bloating; Nausea; Diarrhea, unspecified type 02/09/2025 8:30 AM EDT Treatment [facility] [address] [place] [address] [address] [place] [address] Sagar Soto, PT Pain, neck (Primary Dx); Radiculopathy, cervical 02/09/2025 Travel 02/07/2025 11:44 PM EDT - 02/08/2025 3:20 AM EDT Emergency [facility] EMERGENCY DEPARTMENT [address] [place] [phone] Gabbie Parada MD Right upper quadrant abdominal pain (Primary Dx) Discharge Disposition: Home or Self Care 02/07/2025 Travel 02/07/2025 Refill [facility] [address] [place] [phone] Julianna Freed PA-C Seasonal allergies; Essential hypertension; Mixed hyperlipidemia 01/29/2025 11:00 AM EDT Office Visit [facility] [address] [place] [phone] Julianna Freed PA-C RUQ pain (Primary Dx); Abdominal pain, RLQ; Epigastric pain; Diarrhea, unspecified type 01/29/2025 Travel 01/26/2025 8:00 AM EDT Treatment [facility] [address] [place] [address] [address] [place] [address] Sagar Soto, PT Pain, neck (Primary Dx); Radiculopathy, cervical 01/26/2025 Travel 01/19/2025 4:00 PM EDT Treatment [facility] [address] [place] [address] [address] [place] [phone] Sagar Soto, PT Pain, neck (Primary Dx); Radiculopathy, cervical 01/19/2025 Travel 01/12/2025 4:00 PM EDT Treatment [facility] [address] [place] [address] [address] [place] [address] Sagar Soto, PT Pain, neck (Primary Dx); Radiculopathy, cervical 01/12/2025 Travel 01/06/2025 Telephone [facility] [address] [place] [phone] Julianna Freed PA-C 01/04/2025 8:00 AM EDT Treatment [facility] [address] [place] [address] [address] [place] [address] CharlesSagar, PT Pain, neck (Primary Dx); Radiculopathy, cervical 01/04/2025 Travel 12/31/2024 8:49 AM EDT - 12/31/2024 11:59 PM EDT Hospital Encounter [facility] [place] [address] [facility] [address] [place] [phone] Brie Muñoz PA-C RUQ pain Discharge Disposition: Home or Self Care 12/31/2024 Travel 12/21/2024 8:00 AM EDT Treatment [facility] [address] [place] [address] [address] [place] [address] CharlesSagar brewer, PT Pain, neck (Primary Dx); Radiculopathy, cervical 12/21/2024 Travel 12/14/2024 Results Follow-Up [facility] [address] [address] [place] [phone] Brie Muñoz PA-C 12/10/2024 12:15 PM EDT Lab [facility] [address] [place] [address] RUQ pain; Bloating; Nausea 12/10/2024 10:30 AM EDT Office Visit [facility] [address] [place] [address] Brie Muñoz PA-C RUQ pain (Primary Dx); Bloating; Nausea 12/10/2024 Travel 2024 4:00 PM EDT Treatment [facility] PH[facility] [address] [place] [address] Sagar Soto, PT Pain, neck (Primary Dx); Radiculopathy, cervical 2024 Travel from Last 3 Months Immunizations Immunization Administration Dates Next Due COVID-19 ([employer]) Purple Cap Monovalent 02/26/20 21,08/26/2020,07/28/2020 Flu Vaccine Intradermal Quad 18-64YR 03/28/2021 Flu Vaccine Quad PF >36MO 04/10/2022 Fluzone (or Fluarix & Flulav al for VFC) >6mos 04/10/2022,03/26/2020 Hep A, 2 Dose 08/20/2018 Hepatitis A 06/22/2020,08/20/2018 Hepatitis B 2 Dose Vaccine Heplisav-B 08/13/2022 ,06/14/2022 Influenza Injectable Mdck Pf Quad 04/03/2023 Influenza TIV (IM) 03/28/2021 Influenza, Unspecified 04/14/2024,04/06/2019, Pneumococcal Conjugate 20-Valent (PCV20) 024 Pneumococcal Polysaccharide (PPSV23) 08/20/2018 Shingrix 09/14/2018 Tdap 01/17/2022 Tetanus 10/16/2016 influenza Split 04/10/2022 Family History Medical History Relation Name Comments Mental illness Father Thien Weber Bipolar disor zay and dementia Cancer Maternal Grandfather Keshawn Tai Hypertension Maternal Grandfather Kehsawn Tai Cancer Maternal Grandmother Selina Tai Hypertension Maternal Grandmother Selina Fordtoryeduard Osteoarthritis Maternal Grandmother Selina Fordtoryeduard Hypertension Mother Rosalie Weber Osteoarthritis Mother Rosalie Weber Osteoarthritis Sister Relation Name Status Comments Father Thien Weber Alive Maternal Grandfather Keshawn Tai Maternal Grandmother Selina Tai Mother Rosalie Weber Sister Social History Tobacco Use Types Packs/Day Years [...] file Travel History Travel Start Travel End [place] 02/03/2025 02/07/2025 Last Filed Vital Signs Vital Sign Reading Time Taken Comments Blood Pressure 128/72 02/10/2025 7:59 AM EDT Pulse 88 02/10/2025 7:59 AM EDT Temperature 36.8 C (98.2 F) 02/07/2025 11:43 PM EDT Respiratory Rate 18 02/07/2025 11:43 PM EDT Oxygen Saturation 96% 02/10/2025 7:59 AM EDT Inhaled Oxygen Concentration - - Weight 87.5 kg (193 lb) 02/10/2025 7:59 AM EDT Height 152.4 cm (5') 02/10/2025 7:59 AM EDT Body Mass Index 37.69 02/10/2025 7:59 AM EDT Plan of Treatment Upcoming Encounters Date Type Department Care Team (Late st Contact Info) Description 03/03/2025 8:00 AM EDT Treatment [facility] [address] [place] [address] [address] [place] [phone] Sagar Soto, PT [address] [facility] [address] [place] [address] 03/10/2025 4:00 PM EDT Treatment [facility] [address] [place] [address] [address] [place] [phone] Sagar Soto, PT [address] [facility] [address] [place] [address] 03/29/2025 3:00 PM EDT Office Visit [facility] [address] [facility] [place] [phone] Julianna Freed PA-C [address] [place] [address] 03/31/2025 1:00 PM EDT Appointment [facility] [address] [place] [phone] 04/05/2025 1:00 PM EDT Outside Facility Service [facility] [address] [phone] Daljit Wilson MD [address] [address] Health Maintenance Due Date Last Done Comments COLOGUARD 12/07/2016 COLON CANCER SCREENING 5 YEA R SIGMOIDOSCOPY 12/07/2016 CT COLONOGRAPHY 12/07/2016 FECAL OCCULT BLOOD TEST 12/07/2016 FIT Testing (1 year) 12/07/2016 ZOSTER VACCINE (2 of 2) 11/09/2018 09/14/2018 Annual Gynecologic Pelvic an d Breast Exam 07/12/2024 07/11/2023 COVID-19 Vaccine (7 - Pfizer risk season) 2024 06/12/2024, 06/02/2023, 04/10/2022, Additional history exists INFLUENZA VACCINE 04/14/2025 04/14/2024, , 04/10/2022, Additional history exists LIPID PANEL 12/10/2025 12/10/2024, 07/16, 10/21/2023, Additional history exists ANNUAL PHYSICAL 02/10/2026 02/10/2025, 01/13, 01/25/2023, Additional history exists MAMMOGRAM 05/04/2026 05/04/2024, 04/15, 04/29/2023, Additional history exists PAP SMEAR 07/11/2026 07/11/2023 (Shanell ent-Reported (Performed Externally)), 10/20/2018 (Patient-Reported (Performed Externally)) COLONOSCOPY 02/01/2031 02/01/2021 COLORECTAL CANCER SCREENING 02/01/2031 TDAP/TD VACCINES (2 - Td or Tdap) 01/18/2032 022 HEPATITIS C SCREENING Completed 12/09/2019 Pneumococcal Vaccine 50+ Completed 06/12/2024, 12/2018 Procedures Procedure Name Priority Date/Time Associated Diagnosis Comments JOHNSON FIBROSURE PLUS Routine 02/10/2025 8 :56 AM EDT Hepatic steatosis CT ABDOMEN PELVIS W CONTRAST STAT 02/08/2025 2:10 AM EDT URINALYSIS, MICROSCOPIC ONLY STAT 02/08/2025 1:48 AM EDT URINALYSIS W/ MICROSCOPIC IF INDICATED (NO CULTURE) STAT 02/08/2025 1:48 AM EDT ECG 12-LEAD STAT 02/08/2025 12:09 AM EDT LIGHT BLUE TOP STAT 02/08/2025 12:05 AM EDT FAYE TOP STAT 02/08/2025 12:05 AM EDT GOLD TOP - SST STAT 02/08/2025 12:05 AM EDT LAVENDER TOP STAT 02/08/2025 12:05 AM EDT DK GREEN TOP STAT 02/08/2025 12:05 AM EDT CBC AND DIFFERENTIAL STAT 02/08/2025 12:05 AM EDT TROPONIN STAT 02/08/2025 12:05 AM EDT CBC WITH AUTO DIFFERENTIAL STAT 02/08/2025 12:05 AM EDT HCG, QUANTITATIVE, STAT 02/08/2025 12:05 AM EDT LIPASE STAT 02/08/2025 12:05 AM EDT COMPREHENSIVE METABOLIC PANEL STAT 02/08/2025 12:05 AM EDT RAINBOW DRAW STAT 02/08/2025 12:05 AM EDT US GALLBLADDER Routine 12/31/2024 9:16 AM EDT RUQ pain CBC AND DIFFERENTIAL Routine 12/10/2024 12:12 PM EDT RUQ pain LIPID PANEL Add-On 12/10/2024 12:12 PM EDT RUQ pain Bloating Nausea CBC WITH AUTO DIFFERENTIAL Routine 12/10/2024 12:12 PM EDT RUQ pain LIPASE Routine 12/10/2024 12:12 PM EDT RUQ pain AMYLASE Routine 12/10/2024 12:12 PM EDT RUQ pain COMPREHENSIVE METABOLIC PANEL Routine 12/10/2024 12:12 PM EDT RUQ pain SCANNED - MAMMO 04/24/2022 SCANNED - COLONOSCOPY 02/01/2021 HEPATITIS C ANTIBODY Routine 12/09/2019 10:10 AM EDT Encounter for hepatitis C screening test for low risk patient from Last 3 Months or Most Recently Relevant to Health Maintenance Results * (ABNORMAL) JOHNSON Fibrosure (02/10/2025 8:56 [...] developed and its performance characteristics determined by [employer]. It has not been cleared or approved by the Food and Drug Administration. For questions regarding this report please contact customer service at . References: 1. Mai Lindquist al. Diagnostic Value of Biochemical Markers (FibroTest) [...] histological reference. Eur J Gastroenterol Hepatol. 2018 November; 30:569-577. Blood Venipuncture / Unknown 02/10/2025 8:56 AM EDT 02/10/2025 8:56 AM EDT Narrative [facility] - 02/13/2025 4:07 AM EDT Performed at: [address] [place] [phone] Detective Private Eye: Emely Contreras MD, Phone: [phone] Julianna Freed PA-C LAB BLOOD ORDERABLES Final Result Performing Organization Address City/State/[facility] Phone Number [facility] [address] [place] [address], * CT Abdomen Pelvis With Contrast (02/08/2025 2:10 AM EDT) Anatomical Region Laterality Modality Abdomen, Pelvis N/A Computed Tomogra phy 02/08/2025 2:14 AM EDT Impressions 02/08/2025 2:15 AM EDT Impression: 1.No acute intra-abdominal or intrapelvic process. 2.Ancillary findings as described above. Electronically Signed: Aubree Bruce MD 02/08/2025 2:15 AM EDT Workstation ID: [id number] Narrative 02/08/2025 2:[address] ABDOMEN [...] MD 02/08/2025 2:15 AM EDT Workstation ID: [id number] Gabbie Parada MD IMG CT ORDERABLES Final Resu lt * (ABNORMAL) Urinalysis, Microscopic Only - Urine, Clean Catch (02/08/2025 1:48 AM EDT) RBC, UA 0-2 None Seen, 0-2 /HPF 02/08/2025 1:57 AM EDT [facility] WBC, UA 3-5(A) None Seen, 0-2 /HPF 02/08/2025 1:57 AM EDT [facility] Bacteria, UA Trace(A) None Seen /HPF 02/08/2025 1:57 AM EDT [facility] Squamous Epithelial Cells, UA 3-6(A) None Seen, 0-2 /HPF 02/08/2025 1:57 AM EDT [facility] Hyaline Casts, UA 0-2 None Seen /LPF 02/08/2025 1:57 AM EDT [facility] Methodology Manual Light Microscopy 02/08/2025 1:57 AM EDT [facility] Urine Urine specimen obtained by clean catch procedure / Unknown Collection / Unknown 02/08/2025 1:48 AM EDT 02/08/2025 1:50 AM EDT Gabbie Parada MD URINE ORDERABLES Final Resul t [facility]
[address] [facility] [address] [place] [address], [place] * (ABNORMAL) Urinalysis With Microscopic If Indicated (No Culture) - Urine, Clean Catch (02/08/2025 1:48 AM EDT) Color, UA Yellow Yellow, Straw 02/08/2025 1:54 AM EDT [facility] Appearance, UA Clear Clear 02/08/2025 1:54 AM EDT [facility] pH, UA 6.0 5.0 - 8.0 02/08/2025 1:54 AM EDT [facility] Specific [place], UA 1.010 1.005 - 1.030 02/08/2025 1:54 AM EDT [facility] Glucose, UA Negative Negative 02/08/2025 1:54 AM EDT [facility] Ketones, UA Negative Negative 02/08/2025 1:54 AM EDT [facility] Bilirubin, UA Negative Negative 02/08/2025 1:54 AM EDT [facility] Blood, UA Small (1+)(A) Negative 02/08/2025 1:54 AM EDT [facility] Protein, UA Negative Negative 02/08/2025 1:54 AM EDT [facility] Leuk Esterase, UA Trace(A) Negative 02/08/2025 1:54 AM EDT [facility] Nitrite, UA Negative Negative 02/08/2025 1:54 AM EDT [facility] Urobilinogen, UA 0.2 E.U./dL 0.2 - 1.0 E.U./dL 02/08/2025 1:54 AM EDT [facility] Urine Urine specimen obtained by clean catch procedure / Unknown Collection / Unknown 02/08/2025 1:48 AM EDT 02/08/2025 1:50 AM EDT us Gabbie Parada MD URINE ORDERABLES Final Resul t [facility]
[address] [facility] [address] [place] [address], [place] * ECG 12 Lead Chest Pain [...] MD ECG ORDERABLES Final Result ECG * Faye Top (02/08/2025 12:05 AM EDT) Extra Tube Hold for add-ons. 02/08/2025 12:15 AM EDT [facility] Comment:Auto resulted. Blood Venipuncture / Unknown 02/08/2025 12:05 AM EDT 02/08/2025 12:10 AM EDT us Gabbie Parada MD LAB BLOOD ORDER ONLY Final R esult [facility]
[address] [facility] [address] [place] [address], [place] * Gold Top - SST (02/08/2025 12:05 AM EDT) Extra Tube Hold for add-ons. 02/08/2025 12:15 AM EDT [facility] Comment:Auto resulted. Blood Venipuncture / Unknown 02/08/2025 12:05 AM EDT 02/08/2025 12:10 AM EDT Gabbie Parada MD LAB BLOOD ORDER ONLY Final R esult Performing Organization Address [facility] Co de Phone Number [facility]
[address] [place] [address], [place] * Green Top (Gel) (02/08/2025 12:05 AM EDT) Extra Tube Hold for add-ons. 02/08/2025 12:15 AM EDT [facility] Comment:Auto resulted. Blood Venipuncture / Unknown 02/08/2025 12:05 AM EDT 02/08/2025 12:10 AM EDT Gabbie Parada MD LAB BLOOD ORDER ONLY Final R esult Performing Organization Address City/[facility]/ZIP Co de Phone Number [facility]
[address] [facility] [address] [place] [address], [place] * (ABNORMAL) CBC Auto Differential (02/08/2025 12:05 AM EDT) Only the most recent of2 resultswithin the time period is included. WBC 7.89 3.40 - 10.80 10*3/mm3 02/08/2025 12:12 AM EDT [facility] RBC 3.71(L) 3.77 - 5.28 10*6/mm3 02/08/2025 12:12 AM [facility] Hemoglobin 10.8(L) 12.0 - 15.9 g/dL 02/08/2025 12:12 AM [facility] Hematocrit 33.3(L) 34.0 - 46.6 % 02/08/2025 12:12 AM [facility] MCV 89.8 79.0 - 97.0 fL 02/08/2025 12:12 AM [facility] MCH 29.1 26.6 - 33.0 pg 02/08/2025 12:12 AM [facility] MCHC 32.4 31.5 - 35.7 g/dL 02/08/2025 12:12 AM [facility] RDW 12.9 12.3 - 15.4 % 02/08/2025 12:12 AM [facility] RDW-SD 42.4 37.0 - 54.0 fl 02/08/2025 12:12 AM [facility] MPV 9.8 6.0 - 12.0 fL 02/08/2025 12:12 AM [facility] Platelets 258 140 - 450 10*3/mm3 02/08/2025 12:12 AM [facility] Neutrophil % 60.8 42.7 - 76.0 % 02/08/2025 12:12 AM [facility] Lymphocyte % 23.4 19.6 - 45.3 % 02/08/2025 12:12 AM [facility] Monocyte % 12.2(H) 5.0 - 12.0 % 02/08/2025 12:12 AM [facility] Eosinophil % 2.8 0.3 - 6.2 % 02/08/2025 12:12 AM [facility] Basophil % 0.4 0.0 - 1.5 % 02/08/2025 12:12 AM [facility] Immature Grans % 0.4 0.0 - 0.5 % 02/08/2025 12:12 AM [facility] Neutrophils, Absolute 4.80 1.70 - 7.00 10*3/mm3 02/08/2025 12:12 AM EDT [facility] Lymphocytes, Absolute 1.85 0.70 - 3.10 10*3/mm3 02/08/2025 12:12 AM EDT [facility] Monocytes, Absolute 0.96(H) 0.10 - 0.90 10*3/mm3 02/08/2025 12:12 AM EDT [facility] Eosinophils, Absolute 0.22 0.00 - 0.40 10*3/mm3 02/08/2025 12:12 AM EDT [facility] Basophils, Absolute 0.03 0.00 - 0.20 10*3/mm3 02/08/2025 12:12 AM EDT [facility] Immature Grans, Absolute 0.03 0.00 - 0.05 10*3/mm3 02/08/2025 12:12 AM EDT [facility] Blood Venipuncture / Unknown 02/08/2025 12:05 AM EDT 02/08/2025 12:10 AM EDT Gabbie Parada MD LAB BLOOD ORDERABLES Final R esult [facility]
[address] [place] [address], [place] * Lavender Top (02/08/2025 12:05 AM EDT) Extra Tube hold for add-on 02/08/2025 12:15 AM EDT [facility] Comment:Auto resulted Blood Venipuncture / Unknown 02/08/2025 12:05 AM EDT 02/08/2025 12:10 AM EDT Gabbie Parada MD LAB BLOOD ORDER ONLY Final R esult [facility]
[address] [facility] [address] [place] [address], [place] * Light Blue Top (02/08/2025 12:05 AM EDT) Extra Tube Hold for add-ons. 02/08/2025 12:15 AM EDT [facility] Comment:Auto resulted Blood Venipuncture / Unknown 02/08/2025 12:05 AM EDT 02/08/2025 12:10 AM EDT Gabbie Parada MD LAB BLOOD ORDER ONLY Final R esult [facility]
[address] [facility] [address] [place] [address], * High Sensitivity Troponin T (02/08/2025 12:05 AM EDT) Pathologist [facility] HS Troponin T 7 <14 ng/L 02/08/2025 12:27 AM EDT [facility] Blood Venipuncture / Unknown 02/08/2025 12:05 AM EDT 02/08/2025 12:10 AM EDT Gabbie Parada MD LAB BLOOD ORDERABLES Final R esult [facility]
[address] [place] [address], * hCG, Quantitative, (02/08/2025 12:05 AM EDT) Pathologist [facility] HCG Quantitative 1.68 mIU/mL 02/09/20 12:40 AM EDT [facility] Blood Venipuncture / Unknown 02/08/2025 12:05 AM EDT 02/08/2025 12:10 AM EDT Narrative [facility] - 02/08/2025 12:40 AM EDT [...] MD LAB BLOOD ORDERABLES Final R esult [facility]
[address] [place] [address], [place] * Lipase (02/08/2025 12:05 AM EDT) Only the most recent of2 resultswithin the time period is included. Lipase 38 13 - 60 U/L 02/08/2025 12:30 AM EDT [facility] Blood Venipuncture / Unknown 02/08/2025 12:05 AM EDT 02/08/2025 12:10 AM EDT Gabbie Parada MD LAB BLOOD ORDERABLES Final R esult [facility]
[address] [place] [address], [place] * (ABNORMAL) Comprehensive Metabolic Panel (02/08/2025 12:05 AM EDT) Only the most recent of2 resultswithin the time period is included. Glucose 118(H) 65 - 99 mg/dL 02/08/2025 12:30 AM EDT [facility] BUN 22.9(H) 6.0 - 20.0 mg/dL 02/08/2025 12:30 AM [facility] Creatinine 1.13(H) 0.57 - 1.00 mg/dL 02/08/2025 12:30 AM [facility] Sodium 138 136 - 145 mmol/L 02/08/2025 12:30 AM [facility] Potassium 3.7 3.5 - 5.2 mmol/L 02/08/2025 12:30 AM [facility] Chloride 103 98 - 107 mmol/L 02/08/2025 12:30 AM [facility] CO2 21.8(L) 22.0 - 29.0 mmol/L 02/08/2025 12:30 AM [facility] Calcium 9.2 8.6 - 10.5 mg/dL 02/08/2025 12:30 AM [facility] Total Protein 6.4 6.0 - 8.5 g/dL 02/08/2025 12:30 AM [facility] Albumin 3.8 3.5 - 5.2 g/dL 02/08/2025 12:30 AM [facility] ALT (SGPT) 44(H) 1 - 33 U/L 02/08/2025 12:30 AM [facility] AST (SGOT) 37(H) 1 - 32 U/L 02/08/2025 12:30 AM [facility] Alkaline Phosphatase 54 39 - 117 U/L 02/08/2025 12:30 AM [facility] Total Bilirubin 0.3 0.0 - 1.2 mg/dL 02/08/2025 12:30 AM [facility] Globulin 2.6 gm/dL 02/08/2025 12:30 AM [facility] A/G Ratio 1.5 g/dL 02/08/2025 12:30 AM [facility] BUN/Creatinine Ratio 20.3 7.0 - 25.0 02/08/2025 12:30 AM [facility] Anion Gap 13.2 5.0 - 15.0 mmol/L 02/08/2025 12:30 AM [facility] eGFR 58.3(L) >60.0 mL/min/1.7 3 02/08/2025 12:30 AM EDT [facility] Blood Venipuncture / Unknown 02/08/2025 12:05 AM EDT 02/08/2025 12:10 AM EDT Narrative [facility] - 02/08/2025 12:30 AM EDT [...] MD LAB BLOOD ORDERABLES Final R esult [facility]
[address] [facility] [address] [place] [address], [place] * US Gallbladder (12/31/2024 9:16 AM EDT) Anatomical Region Laterality Modality Body, Abdomen Ultrasound 01/03/2025 10:2 4 PM EDT Impressions 01/03/2025 10:30 PM EDT Impression: 1.Hepatic steatosis. 2.The remaining study is normal. Electronically Signed: Thomas Stanley MD 01/03/2025 10:30 PM EDT Workstation ID: [id number] Narrative 01/03/2025 10:30 PM EDT US GALLBLADDER [...] MD 01/03/2025 10:30 PM EDT Workstation ID: [id number] us Brie Muñoz PA-C IMG US ORDERABLES Final Res ult * (ABNORMAL) Amylase (12/10/2024 12:12 PM EDT) Amylase 120(H) 28 - 100 U/L 12/11/2024 12:26 AM EDT [facility] Blood Venipuncture / Unknown 12/10/2024 12:12 PM EDT 12/10/2024 12:12 PM EDT us Brie Muñoz PA-C LAB BLOOD ORDERABLES Final Result [facility]
[address] [place] [address], * (ABNORMAL) Lipid panel (12/10/2024 12:12 PM EDT) Total Cholesterol 154 0 - 200 mg/dL 12/11/2024 4:33 AM EDT [facility] Triglycerides 97 0 - 150 mg/dL 12/11/2024 4:33 AM EDT [facility] HDL Cholesterol 71(H) 40 - 60 mg/dL 12/11/2024 4:33 AM EDT [facility] LDL Cholesterol 65 0 - 100 mg/dL 12/11/2024 4:33 AM EDT [facility] VLDL Cholesterol 18 5 - 40 mg/dL 12/11/2024 4:33 AM EDT [facility] LDL/HDL Ratio 0.90 12/11/2024 4:33 AM T [facility] Blood Venipuncture / Unknown 12/10/2024 12:12 PM EDT 12/10/2024 12:12 PM EDT Narrative [facility] - 12/11/2024 4:33 AM EDT Cholesterol Reference Ranges (U.S. Department of Health and Human Services ATP III Classifications) Desirable <200 mg/dL Borderline High 200-239 mg/dL High Risk >240 mg/dL Triglyceride Reference Ranges (U.S. Department of Health and Human Services ATP III Classifications) Normal <150 mg/dL Borderline High 150-199 mg/dL High 200-499 mg/dL Very High >500 mg/dL HDL Reference Ranges (U.S. Department of Health and Human Services ATP III Classifications) Low <40 mg/dl (major risk factor for CHD) High >60 mg/dl ('negative' risk factor for CHD) LDL Reference Ranges (U.S. Department of Health and Human Services ATP III Classifications) Optimal <100 mg/dL Near Optimal 100-129 mg/dL Borderline High 130-159 mg/dL High 160-189 mg/dL Very High >189 mg/dL LDL is calculated using the NIH LDL-C calculation. us Brie Muñoz PA-C LAB BLOOD ORDERABLES Final Result Performing Organization Address City/State/[facility] Co de Phone Number [facility]
[address] [place] [address], * SCANNED - MAMMO (04/24/2022) Anatomical Region Laterality Modality Other Julianna Freed PA-C CHART REVIEW TABS Final Result * SCANNED - COLONOSCOPY (02/01/2021) Julianna Freed PA-C CHART REVIEW TABS Final Result * Hepatitis C Antibody (12/09/2019 10:10 AM EDT) Hepatitis C Ab Non-Reacti ve Non-Reacti ve 12/09/2019 7:06 PM EDT [facility] Blood Venipuncture / Unknown 12/09/2019 10:10 AM EDT 12/09/2019 10:10 AM EDT Narrative [facility] - 12/09/2019 7:06 PM EDT Results may be falsely decreased if patient taking Biotin. Julianna Freed PA-C LAB BLOOD ORDERABLES Final Result Performing Organization Address [facility] Co de Phone Number [facility]
[address] [place] [address], from Last 3 Months or Most Recently Relevant to Health Maintenance Insurance EMPLOYEE Member Subscriber Plan / Payer (Ef fective 2014-Present) Name:Monae Alicia Relation to Subscriber:Spouse Name:CAMRON ALICIA Date of :1972 (Home) Address: [address] [place] [id number] Payer ID:[id number] (NAIC) Type:Not on file Address: [phone] EMPLOYEE Member Subscriber Plan / Payer (Ef fective 2021-Present) Name:Monae Alicia Relation to Subscriber:Spouse Payer ID:[id number] (NAIC) Type:Not on file Address: [phone] [place] [phone] Advance Directives * CPR (Attempt to Resuscitate) (Latest Code Status on File) Date Activated Date Inactivated Comments 12/26/2018 1:36 PM 12/27/2018 12:26 PM Question Answer Comments Code Status (Patient has no pulse and is not breathing): CPR (Attempt to Resuscitate) Medical Interventions (Patie nt has pulse or is breathing): Full Care Teams Can[employer] Products Sales Representative Relationship Specialty Start Date End Date Julianna Freed PA-C [address] [place] [address] PCP - General Physician Tip Puncher 07/17/18
--- OUTSIDE RECORDS SUMMARY | 2025-03-01 09:41 | XMS_ITS | Encounter Summary ---
[facility] Address [address] [place] [address] Care Team Providers Care Log Roper Name Role Phone Julianna Freed PA-C Primary Care Provide r Encounter Details Date Type Department Care Team (Late st Contact Info) Description 01/06/2025 Telephone [facility] PRIMARY [facility]ARE [address] [place] [address] Julianna Freed PA-C [address] [place] [phone] Social History Tobacco Use Types Packs/Day Years [...] file Travel History Travel Start Travel End [place] 02/03/2025 02/07/2025 documented as of this encounter Miscellaneous Notes * Telephone Encounter - Julianna Freed PA-C - 01/06/2025 7:33 PM EDT Spoke with patient. She has ongoing right upper quadrant pain, nausea, dry heaving, bloating and gas. Discussed that she may be having side effects from her GLP-1. She will discontinue and follow lowfiber bland diet. She is aware to go to ER if pain is severe or symptoms worsen/change. If no improvement with discontinuation of GLP-1, would want to consider further work-up with possible HIDA scan, EGD and/or CT abdo/pelvis. She will call if she has ongoing pain and wants further work-up. She isaware she will need appointment for insurance purposes in order for us to order diagnostic testing. documented in this encounter Plan of Treatment Upcoming Encounters Date Type Department Care Team (Late st Contact Info) Description 03/03/2025 8:00 AM EDT Treatment [facility] [address] [place] [address] [address] [place] [address] Sagar Soto, PT [address] [facility] [address] [place] [address] 03/10/2025 4:00 PM EDT Treatment [facility] [address] [place] [address] [address] [place] [address] Sagar Soto, PT [address] [facility] [address] [place] [address] 03/29/2025 3:00 PM EDT Office Visit [facility]IMARY [facility] [address] [place] [address] Julianna Freed PA-C [address] [place] [address] 03/31/2025 1:00 PM EDT Appointment [facility] NUCLEAR MEDICINE [address] [place] [address] 04/05/2025 1:00 PM EDT Outside Facility Service [facility] GASTROENTEROLOGY [address] [address] Daljit Wilson MD [address] [address] documented as of this encounter Visit Diagnoses Not on filedocumented in this encounter Care Teams Log Roper Relationship Specialty Start Date End Date Julianna Freed PA-C [address] [place] [address] PCP - General Physician Electro Mechanical Assembler 07/17/18 documented as of this encounter
--- OUTSIDE RECORDS SUMMARY | 2025-03-01 09:41 | XMS_ITS | Encounter Summary ---
Author Organization [facility] Address [address] [place] [address] Care Team Providers Care Safety Investigator/Cause Analyst Name Role Phone Julianna Freed Primary Care Provider Encounter Details Date Type Department Care Team (Latest Contact Info) Description 01/28/2025 Travel Social History Tobacco Use Types Packs/Day [...] Description 03/05/2025 2:45 PM EDT Office Visit [facility] [address] [place] [address] Janeen Vanegas [address] Jhoana Snell [facility] [address] [place] [address] 03/11/2025 1:00 PM EDT Procedure Visit [facility] [address] [place] [place] [phone] Gladys Mccarthy, DO [address] [place] [address] 03/12/2025 8:30 AM EDT Office Visit [facility] [address] [place] [address] Janeen Vanegas [address] Jhoana Snell [facility] [address] [place] [address] 03/12/2025 10:30 AM EDT Office Visit [facility] [address] [place] [phone] Lucrecia Morales [address] [facility] Jhoana Snell [facility] [address] [place] [address] 03/31/2025 10:00 AM EDT Office Visit [facility] [address] [place] [address] 04/02/2025 9:20 AM EDT Office Visit [facility] Interventional Pain Medicine [address] [facility] [place] [address] Ermias Taylor MD [address] [facility] [address] [place] [address] 04/08/2025 3:40 PM EDT Procedure Visit [facility] [address] [place] [address] Gladys Mccarthy, [address] [place] [address] 04/13/2025 3:50 PM EDT Office Visit [facility] [address] [place] [address] Carlton Gaines, DO [address] [place] [address] 05/06/2025 3:40 PM EDT Procedure Visit [facility] [address] [place] [place] [address] Gladys Mccarthy, DO [address] [place] [address] 06/03/2025 3:40 PM EST Procedure Visit [facility] [address] [place] [place] [address] Gladys Mccarthy, DO [address] [place] [phone] 09/07/2025 7:30 AM EST Ovarian Cancer Screening [facility] [address] [facility], [address]rd [place] [address] documented as of this encounter Visit Diagnoses [...] documented as of this encounter Care Teams Safety Investigator/Cause Analyst Relationship Specialty Start Date End Date Julianna Freed PA [address] [place] [address] PCP - General 11/25/20 documented as of this encounter
--- OUTSIDE RECORDS SUMMARY | 2025-03-01 09:41 | XMS_ITS | Clinical Summary ---
Author Organization [employer] ([place], [place], [place], [place]) Address [address] [place] [address] Care Team Providers Care Poker In Name Role Phone Adry Garnica MD Primary Care Provider [phone] Family History Medical History Relation Name Comments Breast cancer Maternal Grandmother Breast cancer Other Mat Aunt Ovarian cancer Neg Hx Relation Name Status Comments Maternal Grandmother Other Social History Tobacco Use Types Packs/Day Years Used Date Smoking Tobacco: Never Assessed Family and Community Support Answer Keenan e Recorded Help with Day to Day Activities Not on file 08/02/2023 Feeling Lonely or Isolated Not on file 08/02 Educational Attainment Answer Date Noah rded Speak language other than Swedish at home Not on file 08/02/2023 Want [...] Info) Description 05/07/2025 7:30 AM EDT Appointment [address] [place] [address] Health Maintenance Due Date Last Done Comments CT Colonography 1971 Colonoscopy 1971 Colorectal Cancer Screening 1971 FOBT/FIT 1971 Fit-DNA (Cologuard) 1971 Sigmoidoscopy 1971 Depression Screening (12+) 1983 Tobacco Cessation Counseling and Screening (12+) 1983 HIV Screening 12/07/1986 Hepatitis C Screening 12/07/1989 Pap Smear 12/07/1992 Pneumococcal 50+ years (2 of 2 - PCV) 12/07/2021 08/20/2018 Shingles Vaccine (Zoster) (2 of 2) 12/07/20212018 COVID-19 VACCINE (5 - 2023-2 5 season) 2024 04/10/2022, 02/25/2021, 08/26/2020, Additional history exists Influenza Vaccine (#1) 2025 04/03/2023, 2021 Breast Cancer Screening 05/04/2026 05/04/20 24, 04/29/2023, 04/24/2022, Additional history exists Lipid Panel 09/03/2028 09/03/2023, 04/24/2022 DTAP/TDAP/TD VACCINES (2 - T d or Tdap) 01/18/2032 01/17/2022 Procedures Procedure Name Priority Date/Time Associated Diagnosis [...] the next mammogram. At our facility, a north fork marker is positioned over a visible skin [...] bilaterally. No change identified. Adry Garnica MD IMG MAMMOGRAPHY ORDERABLES F inal Result from Last 3 Months or Most Recently Relevant to Health Maintenance Insurance BLUE CROSS/BLUE SHIELD Care Teams Poker In Relationship Specialty Start Date End Date Adry Garnica MD [address] [facility] [address] [place] [address] PCP - General Obstetrics and Gynecology 04/29/23
--- OUTSIDE RECORDS SUMMARY | 2025-03-01 09:42 | XMS_ITS | Patient Health Record ---
Author Organization [facility] Address [address] [facility] [address] [place] [address] Care Team Providers Care Underground Repairer Name Role Phone Selina Jolley Unavailable [phone] Adry Garnica Unavailable [phone] Allergies No Known Allergies Results Component Value Reference Range Notes Pap w/reflex HPV Reviewed date:08/04/2024 07:12:26 PM Interpretation:Normal Performing Lab:[facility], [facility] [place] CLIA ID [id number], [address] [facility], [address], [place] [address], Director - Rio Tobar MD Notes/Report: Any Nucleic Acid Amplification testing is performed on the Taste [employer] [place]. Diagnosis: Negative for intraepithelial lesion or malignancy. AP results FINAL CAR DRIVER CYTOLOGY REPORT DIAGNOSIS: Negative for intraepithelial lesion or malignancy. Specimen Adequacy: Satisfactory for interpretation with endocervical/transformat ion zone component absent, history noted. Pertinent Clinical History/History of Surgery: Not provided Collection Technique: Not provided Results of Last Pap: Not provided LMP: . Date of Last Pap: Not provided Specimen Source: Cervical/Endocervical Specimen Type: ThinPrep Other Gynecological Patient Information: Not provided Recommendation: Follow-up based on current clinical guidelines and/or clinical consideration. Screening note: This specimen has been analyzed by the ThinPrep Imaging System, an interactive computer system which assists the lab in screening of ThinPrep Pap Test slides. Following imaging, the slide was reviewed by a Felter Tennis Balls and/or Pathologist. Negative Educational Note: The pap screening test aids in the detection of premalignant and malignant states of the cervix. False positive and negative results may occur. It is not a diagnostic test. If abnormal cells are reported, follow-up based on current clinical guidelines and/or clinical consideration is recommended. Linnea Castro [employer] CPT Codes: 88068 ICD Codes: Z01.419 Reason For Referral No Information Medications Medication SIG (Take, Route, Frequency, Duration) Notes Start Date End Date Status Fexofenadine HCl Act jori Humira Active Losartan Potassium A ctive Methocarbamol Active Montelukast Sodium A ctive PROzac 10 MG Capsule 1 capsule Orally On ce a day Active tiZANidine HCl PRN Activ e Wegovy 1 MG/0.5ML Solution Auto-injector 0.5 mL Subcutaneous Active Rosuvastatin Calcium Active amLODIPine Besylate Active Social History Sex Assigned At : Social History Observation Description Sex Assigned At Female Vital Signs Blood pressure diastolic 72 mm Hg 07/28/2024 Height 59 in 07/28/2024 Blood pressure systolic 112 mm Hg 07/28/2024 Weight 174.8 lbs 07/28/2024 BMI 35.3 kg/m2 07/28/2024 Encounters Encounter Location Date Provider Diagnosis [facility] [address] [facility] [address] [place] [address] 07/28/2024 Adry Garnica Color Expert exam without abnormal findings Z01.419 and Visit for screening mammogram Z12.31 Assessments Encounter Date Diagnosis (ICD Code) Assessment Notes Treatment Notes Treatment Clinical Notes Section Notes 07/28/2024 Color Expert exam without abnormal findings (ICD-10 - Z01.419) 07/28/2024 Visit for screening mammogram (ICD-10 - Z12.31) Plan Of Treatment Next Appt Details Provider Name:Adry Garnica , 08/03/2025 08:15:00 AM, [address], [facility] [address], [place], [address], Insurance Providers Payer Name Payer Address Payer Phone Subscriber Number Group Number Insured Name Patient Relationship to Insured Coverage Start Date Coverage End Date [employer] PPO [address] [place] [address] [phone] [id number] Monae Pereira Self - patient is the insured Medical (General) History Medical History History ICD Code Obesity Psoriatic Arthritis Hypertension Allergies High cholesterol Surgical History Surgery Date(Month/Year) Breast reduction (08/2009), Cervical disc ectomy and fusion (2011), Hyst D&C w/Ablaiton MTPJ Fusion (R toe) 06/2016, Hospitalization History Reason Date(Month/Year) surgery
== END 2025-03-01 23:59 | disposition home or self-care (01) ==
LOC: LAB 09:38
PROVIDERS: Visit Provider Nurse Practitioner Family
DX: R19.7 Diarrhea, unspecified (principal)
CPT/HCPCS: 82653; 87506